=== PATIENT | male | born 1955 | race Caucasian/White ===

== ENCOUNTER 2024-09-17 01:17 | Inpatient (IN) | payer OTHER, SELFPAY ==
[2024-09-16 19:25] VITALS: BP 137/82
[2024-09-16 19:45] LABS: % Basophils 0.3 % (0-2); % Eosinophils 0.5 % (0-6); % Immature Granulocytes 0.3 % (0-0.5); % Lymphocytes 9.8 % (20.5-51.1); % Neutrophils 78.1 % (42.2-75.2); Absolute Eosinophils 0.1 10^3/uL (0-0.7); Absolute Lymphocytes 1.1 10^3/uL (1.2-3.4); Absolute Monocytes 1.2 10^3/uL (0.1-0.6); Absolute Neutrophils 8.7 10^3/uL (1.4-6.5); Hemoglobin 11.8 g/dL (13.0-18.0); Mean Corp Hgb Conc. 34.7 g/dL (33.0-37.0); Mean Corpuscular Hgb 35.2 pg (27.0-31.0); Mean Corpuscular Volume 101.5 fL (80.0-94.0); Mean Platelet Volume 8.9 fL (7.4-10.4); Nucleated Red Blood Cells % 0 % (-); Platelet Count 230 10^3/uL (130-400); Red Blood Cell Count 3.35 10^6/uL (4.70-6.10); Red Cell Dist. Width 11.7 % (11.5-14.5); White Blood Cell Count 11.2 10^3/uL (4.8-10.8)
[2024-09-16 20:30] LABS: Lactic Acid 1.4 mmol/L (0.7-2.0)
[2024-09-16 21:04] LABS: ALT (SGPT) 39 U/L (0-50); AST (SGOT) 36 U/L (17-59); Albumin 3.7 g/dl (3.5-5.0); Alkaline Phosphatase 204 U/L (38-126); Blood Urea Nitrogen 39 mg/dl (9-20); Carbon Dioxide 22 mmol/L (22-30); Chloride 102 mmol/L (98-107); Glucose 113 mg/dl (70-99); Potassium 4.6 mmol/L (3.5-5.1); Sodium 135 mmol/L (135-145); Total Bilirubin 0.9 mg/dl (0.2-1.3); Total Protein 7.7 g/dl (6.3-8.2); eGFR 35.24
[2024-09-16 23:00] VITALS: BMI 17.8
[2024-09-16 23:01] VITALS: BP 136/79
--- NOTE | 2024-09-16 23:29 | ED.MUSCINJ ---
HPI-Injury
General
Chief Complaint: Musculo-Skeletal Complaint
Source: patient and spouse
Exam Limitations: none
Time Seen by Provider: 09/16/24 23:19
Nursing documentation reviewed up to this point in time: agreed with
History of Present Illness-Injury
Initial Injury comments:
69-year-old male here for infection of the left foot. History of high blood pressure and HLD. He states the plantar surface of his left foot at the head of the fifth meta tarsal has a callus on it that has been bothering him for a few months.
Over the past month the area has become more painful. He saw his family doctor and was sent for an outpatient x-ray of the left foot which she had done today revealing suspicion for acute osteomyelitis at the head of the fourth metatarsal and the
base of the proximal phalanx of the fourth toe.
He denies N/V/D/C. Denies fever or chills.
Past History
Past History
ED Past Medical History: HTN and Hypercholesterolemia
ED Past Surgical History: None
Social History
Tobacco: Non-smoker
Alcohol: None
Personal:
Living: with family
Review of Systems
Review of Systems
Allergies reviewed?: Yes
All Other Systems: ROS reviewed and negative except as documented in HPI and ROS
Constitutional: Denies fever or chills
Respiratory: Denies trouble breathing
Cardiac: Denies chest pain
ABD/GI: Denies abdominal pain or nausea
Skin: Reports other (Wound plantar surface of left foot , pain)
Phy Exam
Physical Exam
Physical Exam:
GENERAL: No acute distress. A&Ox3.
CONSTITUTIONAL: Afebrile.
EYES: clear, conjunctivae normal
ENMT: moist mucus membranes, Pharynx nl
RESPIRATORY: Regular respirations, nonlabored, lungs clear.
CARDIOVASCULAR: Regular rate and rhythm, no murmurs, no rubs.
GI: Soft, nontender, normal BS
MUSCULOSKELETAL: Moves with ease. Well perfused.
SKIN: Warm, dry, pink, there is a half dollar sized callus on the plantar surface of the left foot at the heads of the 4th and 5th metatarsals, there is a tunneling opening about 5 mm wide that is draining serous fluid. The area is tender and
mildly swollen with local surrounding redness. Foot mildly swollen.
PSYCH: Normal mood and affect. Well kept, interactive and appropriate
NEUROLOGIC: Awake, alert and oriented. No focal neurological deficits
Injury Course
Orders/Labs/Results
Orders:
Orders
09/16/24 19:37
Complete Blood Count/With Diff Urgent
Comprehensive Metabolic Panel Urgent
Glycohemoglobin (HgbA1c) Urgent
Lactate Level [Lactic Acid] Q4H
Blood Culture Urgent
IRENE Source: Blood/Venous
Specimen Description:
09/16/24 23:28
Piperacillin/Tazo 4.5 Gram [Zosyn] 4.5 gram in 100 ml IV NOW
09/16/24 23:36
Wound Culture [Wound/Abscess/Other Culture] Urgent
IRENE Source: Foot
Specimen Description: Left
Date Specimen was Collected: 09/16/24
Time Specimen was Collected: 23:34
0.9% Sodium Chloride 1000 ml [Nss] 1,000 ml IV BOLUS
09/16/24 23:39
Vancomycin [Vancocin] 1,500 mg 0.9% Sodium Chloride 500 ml [Nss] 500 ml IV NOW
09/17/24 00:14
Admit/Transfer Patient As Directed
Co-Sign Provider:
Level of Care: Inpatient admission
Assign to:: Medical/Surgical
Physician / Group: Seth
Diagnosis: L Foot Osteomyelitis
Reason for Hospitalization: L Foot Osteomyelitis
Expected length of stay greater than two midnights?: Yes
ELOS- Estimated Length of Stay in days: 3
I certify the patient meets the requirements for IP care: Yes
PRN Pain Medication Management As Directed
May give lesser potent ordered pain med per pt: Yes
preference::
Protocol:: Medication orders for pain may be administered in a
manner that supports deferring to patient preference
when the pt is:
- Requesting an ordered lesser potent pain medication.
Least to most potent pain medications are defined
as: acetaminophen < NSAID < tramadol < opioids
(morphine, oxycodone, hydromorphone).
- Requesting a lesser dose of the same medication IF
ORDERED.
- Requesting a less intrusive route of administration
if both routes are prescribed by the provider (PO <
IV).
09/17/24 00:16
Code Status As Directed
Resuscitation Status: Full Code
09/17/24 01:21
Acetaminophen [Tylenol] 650 mg PO Q4HPRN PRN
HYDROmorphone [Dilaudid] 0.5 mg IV Q4HPRN PRN
VANCOMYCIN Pharmacy to Dose [VANCOCIN Pharmacy to Dose] 1 each Pharmacy To Prepare [Call Pharmacy To Prepare] 0 ml IV PER PROTOCOL
09/17/24 01:21
Consult Notification Routine
Specialty to Notify: Infectious Disease
Date consulting provider notified: 09/17/24
Time consulting provider notified: 08:37
Notified:: Provider
Consult Notification Routine
Specialty to Notify: Podiatry
Date consulting provider notified: 09/17/24
Time consulting provider notified: 08:37
Notified:: Provider
Comment: SURGICAL PODIATRY
INFECTIOUS DISEASE CONSULT Routine
Consulting Provider: Jamir Lutz
Was physician already notified: No
Reason for consult: L Foot Osteomyelitis
PODIATRY CONSULT Routine
Consulting Provider: Samantha Gallegos
Was physician already notified: No
Reason for consult: L Foot Osteomyelitis
Activity As Directed
Activity Level: Ambulate
I/O [Intake/ Output] As Directed
Frequency: Per unit guidelines
Vital Signs As Directed
Frequency: Per unit guidelines
Weight As Directed
Frequency: Daily
Oxygen Therapy [O2 Therapy] [RESP] Routine
Titrate/Wean O2 to maintain O2 sat greater than (%): 94
DX Deep Vein Thrombosis Video Routine
09/17/24 05:47
Basic Metabolic Panel IN AM
CRP [C-Reactive Protein] Routine
Complete Blood Count/No Diff IN AM
09/17/24 06:00
Piperacillin/Tazo 2.25 Gram [Zosyn] 2.25 grams in 50 ml IV Q6H
09/17/24 08:00
Amlodipine [Norvasc] 5 mg PO DAILY
Heparin 5,000 units SC Q8
Rosuvastatin Calcium [Crestor] 5 mg PO DAILY
Abnormal Lab Results
09/16/24
19:37
WBC 11.2 H 10^3/uL
(4.8-10.8)
RBC 3.35 L 10^6/uL
(4.70-6.10)
Hgb 11.8 L g/dL
(13.0-18.0)
Hct 34.0 L %
(39.0-52.0)
MCV 101.5 H fL
(80.0-94.0)
MCH 35.2 H pg
(27.0-31.0)
Absolute Neuts (auto) 8.7 H 10^3/uL
(1.4-6.5)
Absolute Lymphs (auto) 1.1 L 10^3/uL
(1.2-3.4)
Absolute Monos (auto) 1.2 H 10^3/uL
(0.1-0.6)
Neutrophils % 78.1 H %
(42.2-75.2)
Lymphocytes % 9.8 L %
(20.5-51.1)
Monocytes % 11.0 H %
(1.7-9.3)
BUN 39 H mg/dl
(9-20)
Creatinine 2.0 H mg/dL
(0.7-1.3)
Glucose 113 H mg/dl
(70-99)
Hemoglobin A1c 6.2 H %
(4.0-5.6)
Alkaline Phosphatase 204 H U/L
(38-126)
09/16/24 19:37
09/16/24 19:37
MDM/Problems Addressed
Differential Diagnosis Includes:
Cellulitis, osteomyelitis
MDM/Problems Addressed:
69-year-old male here for infection of the left foot. History of high blood pressure and HLD. He states the plantar surface of his left foot at the head of the fifth meta tarsal has a callus on it that has been bothering him for a few months.
Over the past month the area has become more painful. He saw his family doctor and was sent for an outpatient x-ray of the left foot which she had done today revealing suspicion for acute osteomyelitis at the head of the fourth metatarsal and the
base of the proximal phalanx of the fourth toe.
He denies N/V/D/C. Denies fever or chills.
CBC no clinically significant abnormality
CMP: Showing mild renal insufficiency all
Hospitalist notified of admission. Osteomyelitis left foot
Wound culture pending
*Critical Care Note
Total Time (30-74mins, 75-104mins- exclusive of procedures): Not Applicable
ED Attending Note
-
Portions of this chart may have been created with voice recognition software.� Occasional wrong word or��sound alike� substitutions may have occurred due to the inherent limitations of voice recognition software.
Discharge Plan
Departure
Patient Disposition: Admit
Date of Disposition: 09/16/24
Time of Disposition: 23:35
Admit to: Med/Surg
Presentation/result/management discussed w/ accepting MD/DO: Hospitalist
Condition: Fair
Discharge Problem:
Acute osteomyelitis of left foot, Acute renal insufficiency
Interventions
Interventions:
*Risk Screen - Suicide Last Done: 09/16/24 22:58
*General Assessment Last Done: 09/16/24 22:58
*Neglect/Abuse Screening Last Done: 09/16/24 22:58
*ED- Fall Risk Assessment Last Done: 09/16/24 22:58
*ED COVID-19 Vaccine History Last Done: 09/16/24 22:58
*Nursing Disposition Last Done: 09/17/24 09:04
ED-Musculoskeletal Assessment Last Done: 09/16/24 23:03
Discharge Date and Time
Discharge Date/Time: 09/17/24 09:04
[2024-09-16] MEDS: NSS 1000 IV (23:42)
[2024-09-16] MEDS: ZOSYN 100 IV (23:43)
[2024-09-17] MEDS: VANCOCIN 530 MG IV (00:15)
--- NOTE | 2024-09-17 00:19 | HPS.HSE ---
Family Physician
-
Family Physician: Dwight Huizar
Chief Complaint
-
L Foot Wound
History of Present Illness
Patient is a 69y M with PMH significant for hypertension and CKD who presents to ED complaining of L foot wound. Patient states that he initially noted sore spot on the plantar aspect of the L foot about one month ago. This has gradually
worsened since that time. He denies any initial injury, trauma, etc. No systemic complaints such as fevers / chills, N/V, etc. Patient was seen by his PCP and had x-rays prescribed. He was called by his PCP today with results of those images and
advised to present to the ED for evaluation.
Medical History
Past Medical History
Past Medical History: Reports Other
Additional Past Medical History:
Hypertension
Dyslipidemia
CKD III
Past Surgical History: Reports None
Social History
Tobacco: Non-smoker
Alcohol: Daily (1-2 drinks daily.)
Drug: None
Personal:
Living: With Family
Family History
Family History: Other (Father: Skin cancer Sister: Pulmonary Fibrosis)
Allergies / Home Medications
Allergies reflects when Allergies were last updated in [facility].
Home Medications with original date entered in [facility]
Allergy/Medication List:
Allergies
Allergy/AdvReac Type Severity Reaction Status Date / Time
No Known Allergies Allergy Verified 09/16/24 22:58
Home Medications
amlodipine 5 mg tablet 5 mg PO DAILY 09/16/24
rosuvastatin 5 mg tablet 5 mg PO DAILY 09/16/24
Review of Systems
-
History Source: Patient
A 12 point ROS was completed and negative except as noted: Yes
Constitutional: Denies Fever, Fatigue or Chills
Respiratory: Denies Cough or Trouble Breathing
Cardiac: Denies Chest Pain or Palpitations
Abdomen/GI: Denies Abdominal Pain, Nausea, Vomiting or Diarrhea
: Denies Dysuria or Frequency
Musculoskeletal: Reports Joint Pain, Joint Swelling and Edema
Skin: Reports Other (Wound L foot)
Neurological: Denies Dizzy or Headache
Psych: Denies Depression or Anxiety
Physical Exam
Vital Signs
Vital Signs
Temp Pulse Resp BP Pulse Ox
99.4 F 87 18 136/79 98
09/16/24 23:01 09/16/24 23:01 09/16/24 23:01 09/16/24 23:01 09/16/24 23:01
Physical Exam
General: Other (69y M in no acute distress.)
HEENT: Moist mucous membranes
Respiratory: Clear; No Wheezes, Rales or Rhonchi
Cardiac: S1/S2 and Regular Rhythm; No Murmur
GI: Soft, Non Tender, Non Distended and Normal Bowel Sounds
Musculoskeletal: No Clubbing, No Cyanosis and Other (Trace edema of the L foot. Erythema of the 4th digit extending into the dorsum of the foot. Wound plantar surface / head of 4th MT with slight serosanguinous drainage. Surrounding tenderness.)
Neuro: AO x 3
Laboratory Results
-
09/16/24 19:37
09/16/24 19:37
Laboratory Results
Lactic Acid 1.4 mmol/L (0.7-2.0) 09/16/24 19:37
Lactic Acid Cancelled 09/16/24 19:37
Total Bilirubin 0.9 mg/dl (0.2-1.3) 09/16/24 19:37
AST 36 U/L (17-59) 09/16/24 19:37
ALT 39 U/L (0-50) 09/16/24 19:37
Alkaline Phosphatase 204 U/L (38-126) H 09/16/24 19:37
Impression/Plan
-
A/P: Patient is a 69y M with PMH significant for hypertension and CKD who presents to ED for evaluation of L foot wound.
L Foot Osteomyelitis
Left Foot Cellulitis
- Admit for further evaluation and treatment.
- X-rays done today as an outpatient demonstrate bony destruction at head of 4th metatarsal and proximal aspect of 4th proximal phalanx.
- Continue broad spectrum IV abx for now.
- ID / Podiatry evaluations for additional recommendations.
- Follow fever curve. Follow for clinical improvement.
- Local wound care.
Benign Hypertension
- Stable. Continue amlodipine.
CKD III
- Suspect this is stable - though no baseline values for comparison.
- Follow SCr over the next 24-48 hours for any changes.
- Renally dose abx.
DVT Prophylaxis: Subcut Heparin
Code Status: Full
[2024-09-17 00:22] VITALS: BP 122/52
--- NOTE | 2024-09-17 03:27 | DOWNTIME ---
There was a [employer] Client Prescription Clerk Downtime on 09/17/2024 from 0200 to 09/18/2023 at 0318 . Downtime documentation of patient's care, including medication administrations, has been reconciled in the electronic record per guidelines. Refer to the
patient's paper chart under the miscellaneous tab to see printed paper medication records and downtime forms.
--- NOTE | 2024-09-17 03:31 | DOWNTIME ---
There was a [employer] Client [employer] Manager Downtime on 09/17/2024 from 0200 to 09/18/2023 at 0318 . Downtime documentation of patient's care, including medication administrations, has been reconciled in the electronic record per guidelines. Refer to the
patient's paper chart under the miscellaneous tab to see printed paper medication records and downtime forms.
[2024-09-17 06:11] LABS: Hematocrit 30.5 % (39.0-52.0); Hemoglobin 10.6 g/dL (13.0-18.0); Mean Corp Hgb Conc. 34.8 g/dL (33.0-37.0); Mean Corpuscular Volume 100.7 fL (80.0-94.0); Mean Platelet Volume 9.6 fL (7.4-10.4); Platelet Count 216 10^3/uL (130-400); Red Blood Cell Count 3.03 10^6/uL (4.70-6.10); Red Cell Dist. Width 11.4 % (11.5-14.5); White Blood Cell Count 8.1 10^3/uL (4.8-10.8)
[2024-09-17] MEDS: ZOSYN 50 IV ×4 (06:31→23:16)
[2024-09-17 06:37] LABS: Blood Urea Nitrogen 33 mg/dl (9-20); Calcium 8.4 mg/dl (8.4-10.2); Carbon Dioxide 20 mmol/L (22-30); Chloride 109 mmol/L (98-107); Estimated Creatinine Clearance 34 ml/min; Glucose 97 mg/dl (70-99); Potassium 4.4 mmol/L (3.5-5.1); Sodium 137 mmol/L (135-145); eGFR 39.99
[2024-09-17 07:28] VITALS: BP 125/53
--- NOTE | 2024-09-17 08:27 | W.PN.HOSP.TC ---
Today's Communication/Plan
-
Antibiotics. ID and podiatry consult.
Assessment / Plan
Assessment / Plan
Physical Exam
General: Other (69y M in no acute distress.)
HEENT: Moist mucous membranes
Respiratory: Clear; No Wheezes, Rales or Rhonchi
Cardiac: S1/S2 and Regular Rhythm; No Murmur
GI: Soft, Non Tender, Non Distended and Normal Bowel Sounds
Musculoskeletal: No Clubbing, No Cyanosis and Other (Trace edema of the L foot. Erythema of the 4th digit extending into the dorsum of the foot. Wound plantar surface / head of 4th MT with slight serosanguinous drainage. Surrounding tenderness.)
Neuro: AO x 3
A/P:
A/P: Patient is a 69y M with PMH significant for hypertension and CKD who presents to ED for evaluation of L foot wound.
L Foot Osteomyelitis
Left Foot Cellulitis
- Admit for further evaluation and treatment.
- X-rays done today as an outpatient demonstrate bony destruction at head of 4th metatarsal and proximal aspect of 4th proximal phalanx.
- Continue broad spectrum IV abx for now.
- ID / Podiatry evaluations for additional recommendations.
- Follow fever curve. Follow for clinical improvement.
- Local wound care.
-Discussed with at bedside today
- WBC 11.2--> 8.1
Benign Hypertension
- Stable. Continue amlodipine.
CKD III
- Suspect this is stable - though no baseline values for comparison.
- Follow SCr over the next 24-48 hours for any changes.
- Renally dose abx.
- Creatinine 2--> 1.8 today
DVT Prophylaxis: Subcut Heparin
Code Status: Full
Anticipated Discharge: > 48 hours
Subjective/Interval History
-
Date of Service: September 17, 2024
Patient with some foot discomfort. No nausea vomiting or diarrhea. Afebrile
Objective Data
-
Labs:
Laboratory Results
09/16/24 09/17/24
19:37 05:47
WBC 8.1
Hgb 10.6 L
Hct 30.5 L
Plt Count 216
Sodium 135 137
Potassium 4.6 4.4
Chloride 102 109 H
Carbon Dioxide 22 20 L
BUN 39 H 33 H
Creatinine 2.0 H 1.8 H
Glucose 113 H 97
Calcium 9.0 8.4
Total Bilirubin 0.9
AST 36
ALT 39
Alkaline Phosphatase 204 H
Vital Signs:
Vital Signs
Temp Pulse Resp BP Pulse Ox
98.4 F 69 17 125/53 98
09/17/24 07:28 09/17/24 07:28 09/17/24 07:28 09/17/24 07:28 09/17/24 07:28
I&O
09/16/24 09/17/24 09/18/24
06:59 06:59 06:59
Intake Total 700 / 700
Output Total 300 / 300
Balance 400 / 400
[2024-09-17] MEDS: CRESTOR 5 MG PO (08:46)
[2024-09-17] MEDS: NORVASC 5 MG PO (08:46)
[2024-09-17] MEDS: HEPARIN 5000 UNITS SC ×3 (08:47→23:16)
--- NOTE | 2024-09-17 09:17 | PHA.VAN.IN ---
Assessment
- Assessment
Renal Function: Appears elevated from baseline (1.8)
Concomitant Antimicrobials: Piperacillin/Tazobactam
Plan
- Plan
Initial / Loading Dose: Vanco 1500mg loading dose administered 09/16/24 0015
Maintenance Regimen: Dose by level
Monitoring: R level 09/18/24 0600
Pharmacokinetics Vancomycin I
- -
Patient Age: 69
Patient Sex: Male
Vancomycin Day #: 1
Indication: Bone And Joint
Requesting Provider: Seth
Pertinent Antimicrobial Allergies:
No known drug allergies
Height / Weight:
Height 6 ft 2 in
Actual Weight 63 kg
- Vital Signs / Lab Results
Temp Pulse Resp BP Pulse Ox
98.4 F 81 17 145/62 98
09/17/24 07:28 09/17/24 08:46 09/17/24 07:28 09/17/24 08:46 09/17/24 07:28
Lab Results - Hematology
09/16/24 09/17/24
19:37 05:47
WBC 11.2 H 8.1
Lab Results - Chemistry
09/16/24 09/17/24
19:37 05:47
BUN 39 H 33 H
Creatinine 2.0 H 1.8 H
Estimated Creat Clear 34
Albumin 3.7
09/16/24 09/16/24
19:37 19:37
Lactic Acid 1.4 Cancelled
[2024-09-17 10:21] LABS: Glycohemoglobin (HgbA1c) 6.2 % (4.0-5.6)
--- NOTE | 2024-09-17 10:58 | CM ---
CM following re: discharge planning.
Reviewed pt's chart, met wit pt and pt's spouse at bedside.
Pt is a 69 year old male, admitted with primary dx of L Foot Osteomyelitis. Left Foot Cellulitis.
Pt reports he lives with spouse 2SH, 3 steps to enter, has 3 supportive children. Pt described himself as independent in all areas [employer]. No DME, VN or SNF history.
PCP: Dwight Huizar
Pharmacy: [facility]
D/C plan: home with anticipated no needs. Spouse to transport at discharge.
CM will follow with discharge plan updates as hospitalization progresses
--- NOTE | 2024-09-17 11:26 | CON.ID ---
Consultation
-
Date/Time Consultation Requested: September 17, 2024 0121
Date/Time Consultation Performed: 07/20/2024 1126
Requesting Provider: Dr. Seth Leigh
Performing Provider: Dr. Maricel Lancaster
Reason for Consultation: Left foot osteomyelitis
Chief Complaint / Past History
Chief Complaint
Foot wound
History of Present Illness
69-year-old male with history of hypertension, CKD 3, who presented to the hospital on September 16 due to left foot redness and worsening plantar wound. He states he has a chronic callus on the bottom of his left foot. About a month ago, he noted a
wound on the callus which never healed. Few days ago his left foot became more swollen and red. The foot wound started to drain. He saw his PCP who ordered x-ray of the foot which showed changes suspicious for osteomyelitis. He was therefore
sent to the ER. No fever. He is currently on vancomycin and Zosyn. No history of diabetes mellitus. No trauma to the foot. No walking a lot. No neuropathy.
Past History
Additional Past Medical History:
Hypertension
CKD 3
HLD
Allergy History:
No Known Allergies Allergy (Verified 09/16/24 22:58)
Medications Reviewed: Yes
Current Antibiotics:
Zosyn
Vancomycin
Social History
Tobacco: Non-Smoker
Alcohol: Daily (1-2 drinks a day)
Drug: None
Personal:
Living: With Family
Employment: Employed ([employer]
Family History
Family History: Not Pertinent
Review of Systems
Review of Systems
General: Negative Fever, Chills or Change in Appetite
HEENT: Negative Stiff Neck, Sinus Problems or Headache
Cardiovascular: Negative Chest Pain or Dyspnea
Respiratory: Negative Dyspnea or Cough
Gasteroenterology: Negative Nausea, Vomiting or Diarrhea
Genital / Urological: Negative Dysuria or Flank Pain
Skin / Hair / Nails: Negative Rash
Neurological: Negative Dizziness
All systems: All other systems were reviewed and were negative
Vital Signs
Temp Pulse Resp BP Pulse Ox
98.4 F 81 17 145/62 98
09/17/24 07:28 09/17/24 08:46 09/17/24 07:28 09/17/24 08:46 09/17/24 07:28
Physical Exam
Physical Exam
Constitutional: No Acute Distress and Other (thin)
Eyes: No Conjunctival Hemorrhage and Sclera Anicteric
Cardiovascular: Regular Rate and S1/S2
Pulmonary: Clear
Gastrointestinal: Soft, Non Tender and Non Distended
Extremities: Edema (left foot 1+), Erythema (Dorsolateral left foot, + warmth) and Pulses (strong pedal pulses)
Wound: Other (left plantar foot over 4th metatarsal small opening/wound with light brown discharge on gauze)
Neurological: AO x 3
Lab / Diagnostic Study Results
09/17/24 05:47
09/17/24 05:47
Abs Immat Gran (auto) 0.0 10^3/uL (0-0.05) 09/16/24 19:37
Absolute Neuts (auto) 8.7 10^3/uL (1.4-6.5) H 09/16/24 19:37
Absolute Lymphs (auto) 1.1 10^3/uL (1.2-3.4) L 09/16/24 19:37
Absolute Monos (auto) 1.2 10^3/uL (0.1-0.6) H 09/16/24 19:37
Absolute Basos (auto) 0.0 10^3/uL (0-0.2) 09/16/24 19:37
Immature Gran % 0.3 % (0-0.5) 09/16/24 19:37
Neutrophils % 78.1 % (42.2-75.2) H 09/16/24 19:37
Lymphocytes % 9.8 % (20.5-51.1) L 09/16/24 19:37
Monocytes % 11.0 % (1.7-9.3) H 09/16/24 19:37
Eosinophils % 0.5 % (0-6) 09/16/24 19:37
Basophils % 0.3 % (0-2) 09/16/24 19:37
Lactic Acid 1.4 mmol/L (0.7-2.0) 09/16/24 19:37
Lactic Acid Cancelled 09/16/24 19:37
C-Reactive Protein 74.10 mg/L (0.0-10.00) H 09/17/24 05:47
Microbiology Results
Micro:
09/16/24 23:36 Wound Culture - Pending
Foot - Left Gram Stain - Preliminary
09/16/24 19:37 Blood Culture - Pending
Blood/Venous
09/16/24 Left foot and ankle xray: suspicious for acute osteomyelitis at the head of the fourth metatarsal and the base of the proximal phalanx of the fourth toe.
Assessment / Plan
# Osteomyelitis of left 4th metatarsal head
# Left foot cellulitis
- Podiatry to evaluate.
- DC Vancomycin.
- Continue Zosyn for now.
[2024-09-17 15:15] VITALS: BP 120/58
--- NOTE | 2024-09-17 19:53 | W.CS.POD ---
Consult Summary - Podiatry
-
69 year old male with PMH of HTN and CKD3, admitted last night for left foot infected ulceration/cellulitis. He reports having a persistent 'callus' along the bottom of his right foot for at least 2 months duration. He admits to picking at it and
rarely covering or caring for it over time. After a recent vacation in [place], he noticed increased swelling and redness of the left foot, as well as some drainage, prompting him to visit his PCP. XRAYS were ordered and his PCP (Dr. Huizar) sent
the patient to the ER for evaluation for possible bone infection. The patient denies having any significant pain, fevers, chills or sweats, nor stiffness behind the knee or in the groin. Further inquiry reveals he is aware of undiagnosed neuropathy
of both feet, but never made his PCP aware of this.
Patient is resting comfortably in bed.
Afebrile, VSS
WBC 8.1 with left shift.
09/16/24 blood culture and wound culture: Pending.
09/16/24 XRAYS, Left foot: Left foot radiographs show destructive osteolytic process at the head of the fourth metatarsal. There is also abnormal osteolysis which is less conspicuous at the base of the proximal phalanx of the fourth toe. No other
abnormal osteolysis identified. Findings as above suspicious for acute osteomyelitis at the head of the fourth metatarsal and the base of the proximal phalanx of the fourth toe.
Clinically, the patient pedal pulses are 2+ palpable bilaterally. Normal skin temp, decreased turgor and digital hair.
There is mild edema of the left foot, erythema extending into the fourth toe. Right foot, 1cm diameter ulceration with bordering hyperkeratosis, sub-metatarsal four, full skin and soft tissue thickness, extending to bone. Minor brownish discharge
and malodor noted, as well as mild bleeding on probing area.
Assessment:
-Infected, neurotrophic ulceration of the plantar left foot, with strong suspicion for osteomyelitis.
-Idiopathic peripheral neuropathy.
-HTN
-CK3
Plan:
-XRAY non-specific bony changes in the fourth metatarsal head and base of the fourth toe, left foot.
-MRI ordered to determine extent of infectious bone involvement. Anticipate need for surgical debridement.
-ID note appreciated. Patient on IV Zosyn (D/C Vanco)
-Will follow.
[2024-09-17 23:31] VITALS: BP 101/53
[2024-09-18] VITALS (14 sets, daily range): BP systolic 90–128; BP diastolic 43–64; BMI 17.1
[2024-09-18] MEDS: ZOSYN 50 IV ×3 (05:20→19:38)
[2024-09-18] MEDS: NORVASC 5 MG PO (07:32)
[2024-09-18] MEDS: HEPARIN 5000 UNITS SC ×2 (07:32→23:25)
[2024-09-18] MEDS: CRESTOR 5 MG PO (07:32)
--- NOTE | 2024-09-18 08:31 | W.PN.HOSP.TC ---
Addendum entered and electronically signed by Emmanuel Kelsey MD 09/18/24 14:04:
Underweight
Original Note:
Today's Communication/Plan
-
Antibiotics. MRI of the foot
Assessment / Plan
Assessment / Plan
Physical Exam
General: Other (69y M in no acute distress.)
HEENT: Moist mucous membranes
Respiratory: Clear; No Wheezes, Rales or Rhonchi
Cardiac: S1/S2 and Regular Rhythm; No Murmur
GI: Soft, Non Tender, Non Distended and Normal Bowel Sounds
Musculoskeletal: No Clubbing, No Cyanosis and Other (Trace edema of the L foot. Erythema of the 4th digit extending into the dorsum of the foot. Wound plantar surface / head of 4th MT with slight serosanguinous drainage. Surrounding tenderness.)
Neuro: AO x 3
A/P:
A/P: Patient is a 69y M with PMH significant for hypertension and CKD who presents to ED for evaluation of L foot wound.
L fourth metatarsal head osteomyelitis
Left Foot Cellulitis
- X-rays done as an outpatient demonstrate bony destruction at head of 4th metatarsal and proximal aspect of 4th proximal phalanx.
- Continue broad spectrum IV abx for now. Streamlined to Zosyn
- ID / Podiatry consults appreciated
- Local wound care.
-Discussed with at bedside yesterday
- WBC 11.2--> 7.3
- Plan for MRI today and possible surgical intervention
Benign Hypertension
- Stable. Continue amlodipine.
CKD III
- Suspect this is stable - though no baseline values for comparison.
- Follow SCr over the next 24-48 hours for any changes.
- Renally dose abx.
- Creatinine 2--> 1.9 today
DVT Prophylaxis: Subcut Heparin
Code Status: Full
Total time spent on today's encounter was 52 minutes which included time spent in counseling the patient/family regarding diagnosis and treatment plan as listed above, goals of care, and symptom management. Case was discussed with nursing staff,
specialists, and care coordinators/case management. All labs and imaging personally reviewed by me. Remainder the time spent in detailed review of previous records, lab data, imaging, and other medical provider documentation.
Anticipated Discharge: > 48 hours
Subjective/Interval History
-
Date of Service: September 18, 2024
patient with some foot discomfort, no n/v. Afebrile
Objective Data
-
Labs:
Laboratory Results
09/18/24
08:11
WBC Pending
Hgb Pending
Hct Pending
Plt Count Pending
Sodium Pending
Potassium Pending
Chloride Pending
Carbon Dioxide Pending
BUN Pending
Creatinine Pending
Glucose Pending
Calcium Pending
Vital Signs:
Vital Signs
Temp Pulse Resp BP Pulse Ox
98.2 F 85 17 128/63 99
09/18/24 07:32 09/18/24 07:32 09/18/24 07:32 09/18/24 07:32 09/18/24 07:32
I&O
09/17/24 09/18/24 09/19/24
06:59 06:59 06:59
Intake Total 700 / 700 820 / 820
Output Total 300 / 300
Balance 400 / 400 820 / 820
[2024-09-18 09:16] LABS: % Basophils 0.3 % (0-2); % Eosinophils 2.2 % (0-6); % Immature Granulocytes 0.4 % (0-0.5); % Lymphocytes 11.1 % (20.5-51.1); % Monocytes 11.5 % (1.7-9.3); % Neutrophils 74.5 % (42.2-75.2); Absolute Eosinophils 0.2 10^3/uL (0-0.7); Absolute Lymphocytes 0.8 10^3/uL (1.2-3.4); Absolute Monocytes 0.8 10^3/uL (0.1-0.6); Absolute Neutrophils 5.5 10^3/uL (1.4-6.5); Hematocrit 32.5 % (39.0-52.0); Hemoglobin 11.5 g/dL (13.0-18.0); Mean Corp Hgb Conc. 35.4 g/dL (33.0-37.0); Mean Corpuscular Hgb 36.1 pg (27.0-31.0); Mean Corpuscular Volume 101.9 fL (80.0-94.0); Nucleated Red Blood Cells % 0 % (-); Platelet Count 231 10^3/uL (130-400); Red Blood Cell Count 3.19 10^6/uL (4.70-6.10); Red Cell Dist. Width 11.5 % (11.5-14.5); White Blood Cell Count 7.3 10^3/uL (4.8-10.8)
--- NOTE | 2024-09-18 09:40 | PN.CDI ---
CDI
- -
CDI:
Physician Documentation Request
Admit Date: 09/17/24 01:17
Dear Doctor Laure,
Please review the following and provide your response in the progress notes.
Clinical Indicators:
Selected Entries
09/18/24
05:13
Body Mass Index (BMI) 17.1
Please provide an associated diagnosis related to the BMI, such as:
BMI 17.1, underweight
Other (please specify)
BMI < or = to 19
Underweight
Weight Loss
Cachectic
Anorexia
Use of terms such as suspected, likely, concern for, or probable (associated with a specific diagnosis that is being evaluated, monitored, or treated as if it exists) are acceptable and can be coded in the inpatient setting, when documented at the
time of discharge.
Thank you,
Lauren Dee RN BSN CCDS
CDI Specialist
Please contact via tiger text
Please use your independent medical judgment in providing your response.
[2024-09-18 09:42] LABS: Blood Urea Nitrogen 36 mg/dl (9-20); Calcium 8.7 mg/dl (8.4-10.2); Carbon Dioxide 23 mmol/L (22-30); Chloride 106 mmol/L (98-107); Estimated Creatinine Clearance 31 ml/min; Glucose 105 mg/dl (70-99); Potassium 5.1 mmol/L (3.5-5.1); Sodium 138 mmol/L (135-145); eGFR 37.48
--- NOTE | 2024-09-18 10:01 | CM ---
CM following re: discharge planning.
Reviewed pt's chart, met wit pt.
Pt is aware of the treatment plan, stated he met with [facility] [employer], receives antibiotics. Per podiatry, anticipate need for surgical debridement.
Pt reports he lives with spouse 2SH, 3 steps to enter, has 3 supportive children. 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 No DME, VN or SNF history.
PCP: Dwight Huizar
Pharmacy: [facility]
D/C plan: home with possibly VN services if indicated. Spouse to transport at discharge.
CM will follow with discharge plan updates as hospitalization progresses
--- NOTE | 2024-09-18 12:01 | W.PN.ID1 ---
Date of Service
Date of Service: September 18, 2024
Today's Communication
Await MRI.
Assessment / Plan
# Osteomyelitis of left 4th metatarsal head
# Left foot cellulitis
- Appreciate podiatry eval.
- Enroute to MRi
- Continue Zosyn (d2) for now.
Chief Complaint
-: Other (Osteo)
Subjective / Review of Systems
Tolerating abx.
Vital Signs / Physical Exam
Vital Signs
Vital Signs
Temp Pulse Resp BP Pulse Ox
98.2 F 85 17 128/63 99
09/18/24 07:32 09/18/24 07:32 09/18/24 07:32 09/18/24 07:32 09/18/24 07:32
Physical Exam
Constitutional: No Acute Distress and Comfortable
Cardiovascular: Regular Rate and S1/S2
Pulmonary: Clear
Extremities: Edema (Left foot 1= edema) and Erythema (Left 4th toe edematous/erythematous to forefoot)
Wound: Other (Left foot dressing dry)
Neurological: AO x 3
Objective Data
Lab Data
Lab Results
09/18/24 08:11
09/18/24 08:11
Estimated Creat Clear 31 ml/min 09/18/24 08:11
Lactic Acid 1.4 mmol/L (0.7-2.0) 09/16/24 19:37
Lactic Acid Cancelled 09/16/24 19:37
Total Bilirubin 0.9 mg/dl (0.2-1.3) 09/16/24 19:37
AST 36 U/L (17-59) 09/16/24 19:37
ALT 39 U/L (0-50) 09/16/24 19:37
Alkaline Phosphatase 204 U/L (38-126) H 09/16/24 19:37
C-Reactive Protein 74.10 mg/L (0.0-10.00) H 09/17/24 05:47
Most recent labs reviewed.
Micro Results:
09/16/24 19:37 Blood Culture - Preliminary
Blood/Venous No Growth in 24 hours- Final report to follow
09/16/24 23:36 Wound Culture - Pending
Foot - Left Gram Stain - Preliminary
09/16/24 Left foot and ankle xray: suspicious for acute osteomyelitis at the head of the fourth metatarsal and the base of the proximal phalanx of the fourth toe.
--- NOTE | 2024-09-18 15:25 | W.PN.UPDATE ---
Update Note
Progress Note Update
09/18/24 MRI of the left foot reported: There is findings of soft tissue infection along the lateral aspect of the forefoot with a soft tissue defect/necrotic tissue which extends to the fourth metatarsal head. There is associated osteomyelitis
involving the majority of the fourth metatarsal and fourth proximal phalanx. There is an associated peripherally enhancing joint effusion of the fourth metatarsophalangeal joint, likely an element of septic arthritis. Additionally there are findings
of osteomyelitis along the medial aspect of the fifth metatarsal head.
MRI findings reviewed and discussed with the patient. The patient understands the necessity to debride/remove all infected and non-viable skin, soft tissue and bone of the left foot.
Will proceed to OR today.
--- NOTE | 2024-09-18 15:38 | PTCARENOTE ---
PT in OR. All belongings and personal items sent with spouse who accompanied pt with transport staff in case pt does not make it back to [facility].
[2024-09-18] MEDS: HEPARIN SC (15:54)
--- NOTE | 2024-09-18 17:45 | W.PN.UPDATE ---
Update Note
Progress Note Update
-Discussed the planned procedure of debridement of infected and non-viable skin, soft tissue and bone for the treatment of osteomyelitis, left foot. The patient understands the risks, benefits and possible complications of the proposed procedure(s),
as well as the potential need for further surgery. Patient consent for the aforementioned surgery obtained at bedside.
-Partial fourth ray amputation, and partial fifth metatarsal head resection, left foot. Specimen for infected bone sent to pathology and micro. Clean bone margin sent for pathology as well. Minimal to no blood loss.
-Patient tolerated the procedure and anesthesia well. Post op condition stable and VSI to the LLE. Prognosis: Fair to good.
Resume diet
Post Op XRAYS ordered, left foot.
NWB left foot for 24 hours.
--- NOTE | 2024-09-18 19:08 | PTCARENOTE ---
Pt arrived from PACU at aprox 1840. Vitals stable. Left foot surgical wound with bulky dressing CDI- is able to wiggle toes. Pt with no c/o pain at the time. Currently eating dinner. Report passed on to overnight stocker RN.
[2024-09-18] MEDS: DILAUDID 0.5 MG IV (21:43)
[2024-09-18] MEDS: ROXICODONE 5 MG PO (23:48)
[2024-09-19] MEDS: ZOSYN 50 IV ×5 (02:08→23:52)
[2024-09-19 03:10] VITALS: BP 127/45
[2024-09-19] MEDS: ROXICODONE 10 MG PO (03:27)
[2024-09-19 06:00] VITALS: BMI 17.4
[2024-09-19 06:21] LABS: % Basophils 0.3 % (0-2); % Eosinophils 1.2 % (0-6); % Immature Granulocytes 0.5 % (0-0.5); % Lymphocytes 6.6 % (20.5-51.1); % Monocytes 9.4 % (1.7-9.3); Absolute Eosinophils 0.1 10^3/uL (0-0.7); Absolute Immature Granulocytes 0.1 10^3/uL (0-0.05); Absolute Lymphocytes 0.7 10^3/uL (1.2-3.4); Absolute Neutrophils 8.5 10^3/uL (1.4-6.5); Hematocrit 32.3 % (39.0-52.0); Hemoglobin 11.2 g/dL (13.0-18.0); Mean Corp Hgb Conc. 34.7 g/dL (33.0-37.0); Mean Corpuscular Volume 100.9 fL (80.0-94.0); Mean Platelet Volume 9.5 fL (7.4-10.4); Nucleated Red Blood Cells % 0 % (-); Platelet Count 230 10^3/uL (130-400); Red Cell Dist. Width 11.4 % (11.5-14.5); White Blood Cell Count 10.3 10^3/uL (4.8-10.8)
[2024-09-19 06:30] LABS: Blood Urea Nitrogen 32 mg/dl (9-20); Calcium 8.2 mg/dl (8.4-10.2); Carbon Dioxide 22 mmol/L (22-30); Chloride 102 mmol/L (98-107); Estimated Creatinine Clearance 35 ml/min; Glucose 143 mg/dl (70-99); Potassium 4.7 mmol/L (3.5-5.1); Sodium 135 mmol/L (135-145); eGFR 42.83
[2024-09-19 07:00] VITALS: BP 130/63
[2024-09-19] MEDS: CRESTOR 5 MG PO (07:20)
[2024-09-19] MEDS: HEPARIN 5000 UNITS SC ×3 (07:20→23:52)
[2024-09-19] MEDS: NORVASC 5 MG PO (07:22)
--- NOTE | 2024-09-19 09:01 | W.PN.HOSP.TC ---
Today's Communication/Plan
-
IV antibiotics. PT eval
Assessment / Plan
Assessment / Plan
Physical exam:
General: Well Developed, Well Nourished and No Apparent Distress
HEENT: Normocephalic, Atraumatic and Moist Mucous Membranes
Respiratory: Clear to Auscultation; Negative Wheezes, Rales or Rhonchi
Cardiac: Regular Rhythm and S1/S2
GI: Soft, Nontender and Nondistended
Musculoskeletal: Left foot postop findings. No Clubbing, No Cyanosis and No Edema
Neuro: Awake, Alert and Oriented, no neurological deficit
Psych: Calm
Podiatry procedure:
Partial fourth ray amputation, and partial fifth metatarsal head resection, left foot. Specimen for infected bone sent to pathology and micro. Clean bone margin sent for pathology as well. Minimal to no blood loss.
A/P:
L fourth metatarsal head osteomyelitis
Left Foot Cellulitis
- Continue current antibiotics, IV Zosyn
- Awaiting for cultures/path
- MRI reviewed
- Podiatry did amputation on 09/18
- Appreciated ID consult
- PT eval
- Discussed with family at bedside
Benign Hypertension
- Stable. Continue amlodipine.
CKD III
- Avoid nephrotoxic
- Creatinine 1.7 today (creatinine 2 upon admission)
DVT Prophylaxis: Subcut Heparin
Code Status: Full
Total time spent on today's encounter was 52 minutes which included time spent in counseling the patient/family regarding diagnosis and treatment plan as listed above, goals of care, and symptom management. Case was discussed with nursing staff,
specialists, and care coordinators/case management. All labs and imaging personally reviewed by me. Remainder the time spent in detailed review of previous records, lab data, imaging, and other medical provider documentation.
Anticipated Discharge: 24 - 48 hours
Subjective/Interval History
-
Date of Service: September 19, 2024
Postop foot discomfort. No nausea vomiting diarrhea. Afebrile
Objective Data
-
Labs:
Laboratory Results
09/19/24
05:18
WBC 10.3
Hgb 11.2 L
Hct 32.3 L
Plt Count 230
Sodium 135
Potassium 4.7
Chloride 102
Carbon Dioxide 22
BUN 32 H
Creatinine 1.7 H
Glucose 143 H
Calcium 8.2 L
Vital Signs:
Vital Signs
Temp Pulse Resp BP Pulse Ox
98.6 F 104 14 130/63 97
09/19/24 07:00 09/19/24 07:22 09/19/24 07:00 09/19/24 07:22 09/19/24 07:00
I&O
09/18/24 09/19/24 09/20/24
06:59 06:59 06:59
Intake Total 820 / 820 390 / 390
Output Total 800 / 800
Balance 820 / 820 -410 / -410
[2024-09-19 11:05] VITALS: BP 108/63
--- NOTE | 2024-09-19 11:51 | W.PN.ID1 ---
Date of Service
Date of Service: September 19, 2024
Today's Communication
Continue Zosyn for now.
Assessment / Plan
# Osteomyelitis of left 4th toe,metatarsal head and medial 5th met head
# Left foot cellulitis
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
- OR bone cx, path pending
- Wound swab Pseudomonas, Staph aureus, Group B strep
- Continue Zosyn (d4) for now.
- May need course of IV abx if not surgical cure.
Chief Complaint
-: Other (Osteo)
Subjective / Review of Systems
No pain
Vital Signs / Physical Exam
Vital Signs
Vital Signs
Temp Pulse Resp BP Pulse Ox
98.3 F 99 16 108/63 98
09/19/24 11:05 09/19/24 11:05 09/19/24 11:05 09/19/24 11:05 09/19/24 11:05
Physical Exam
Constitutional: No Acute Distress
Cardiovascular: Regular Rate and S1/S2
Pulmonary: Clear
Extremities: Edema (Left foot 1= edema) and Erythema (Left 4th toe edematous/erythematous to forefoot)
Wound: Other (Left foot post-op dressing dry)
Neurological: AO x 3
Objective Data
Lab Data
Lab Results
09/19/24 05:18
09/19/24 05:18
Estimated Creat Clear 35 ml/min 09/19/24 05:18
Lactic Acid 1.4 mmol/L (0.7-2.0) 09/16/24 19:37
Lactic Acid Cancelled 09/16/24 19:37
Total Bilirubin 0.9 mg/dl (0.2-1.3) 09/16/24 19:37
AST 36 U/L (17-59) 09/16/24 19:37
ALT 39 U/L (0-50) 09/16/24 19:37
Alkaline Phosphatase 204 U/L (38-126) H 09/16/24 19:37
C-Reactive Protein 74.10 mg/L (0.0-10.00) H 09/17/24 05:47
Most recent labs reviewed.
Micro Results:
09/16/24 23:36 Wound Culture - Preliminary
Foot - Left Pseudomonas species
Staphylococcus aureus
Streptococcus agalactiae
Gram Stain - Preliminary
09/18/24 13:00 Tissue Culture - Preliminary
Bone Gram Stain - Preliminary
09/16/24 19:37 Blood Culture - Preliminary
Blood/Venous No Growth in 48 hours- Final report to follow
09/16/24 Left foot and ankle xray: suspicious for acute osteomyelitis at the head of the fourth metatarsal and the base of the proximal phalanx of the fourth toe.
09/18/24 MRI LLE: There is findings of soft tissue infection along the lateral aspect of the forefoot with a soft tissue defect/necrotic tissue which extends to the fourth metatarsal head. There is associated osteomyelitis involving the majority of
the fourth metatarsal and fourth proximal phalanx. There is an associated peripherally enhancing joint effusion of the fourth metatarsophalangeal joint, likely an element of septic arthritis. Additionally there are findings of osteomyelitis along
the medial aspect of the fifth metatarsal head.
--- NOTE | 2024-09-19 14:50 | W.PN.POD ---
Today's Communication
Today's Communication
Amputation site stable and viable, left foot.
OK for discharge.
IV antibiotics as per ID.
Assessment / Plan
-
Assessment:
-Infected, neurotrophic ulceration of the plantar left foot, with fourth metatarsal, fourth toe, and partial fifth metatarsal head osteomyelitis.
-S/P one day partial fourth ray amputation, and partial debridement of fifth metatarsal head. left foot.
-Idiopathic peripheral neuropathy.
-HTN
-CK3
Plan:
Surgical site stable and viable, without any local signs of infection, left foot.
Likely surgical cure, however, due to fifth metatarsal head involvement, recommended antibiotics on discharge. Contacted Dr. Lancaster. IV antibiotics as per ID.
OK for discharge per podiatry.
Await Wedged surgical shoe from [facility]. WB in surgical shoe only.
Patient will need HHN for wound care: Adaptic, dry gauze, kerlix and Evan wrap dressing to left foot, every other day.
Will see patient in office on . 09/22/24. (Patient already has appointment)
Will follow.
Subjective
Chief Complaint
S/P one day partial fourth ray and partial fifth met head resection, left foot.
Subjective
Patient resting comfortably in bed. Daughter Taina and present. Reports minimal pain overnight. Denies fever, chills or sweats.
Objective
Temp Pulse Resp BP Pulse Ox
98.3 F 99 16 108/63 98
09/19/24 11:05 09/19/24 11:05 09/19/24 11:05 09/19/24 11:05 09/19/24 11:05
09/19/24 05:18
09/19/24 05:18
Vital Signs and Lab results were reviewed.
Dressing clean, dry and intact. Vascular status intact, CFT to the digits 1-2 seconds, left foot.
Mild residual edema of the left foot, cellulitis resolved.
Incision line over fourth ray dorsally and extending through fourth interspace plantarly is stable, with wound edges well apposed, viable and sutures intact. Packing extending out of wound dorsally removed uneventfully.
No malodor, purulence, or local signs of infection noted.
Post-op XRAYS 09/18/24: Postoperative from amputation of the left 4th toe, most of the 4th metatarsal, and a portion of the 5th metatarsal head with air in soft tissues due to open wound, and swelling in the surgical bed.
[2024-09-19 15:20] VITALS: BP 105/54
[2024-09-19 16:32] VITALS: BP 105/54
[2024-09-19 23:52] VITALS: BP 118/54
[2024-09-20] MEDS: ZOSYN 50 IV (05:49)
[2024-09-20 06:00] VITALS: BMI 17.0
[2024-09-20 06:35] LABS: Hemoglobin 10.9 g/dL (13.0-18.0); Mean Corp Hgb Conc. 34.1 g/dL (33.0-37.0); Mean Corpuscular Hgb 34.6 pg (27.0-31.0); Mean Corpuscular Volume 101.6 fL (80.0-94.0); Mean Platelet Volume 10.1 fL (7.4-10.4); Platelet Count 231 10^3/uL (130-400); Red Blood Cell Count 3.15 10^6/uL (4.70-6.10); Red Cell Dist. Width 11.2 % (11.5-14.5)
[2024-09-20 06:55] VITALS: BP 112/63
[2024-09-20 07:23] LABS: Blood Urea Nitrogen 28 mg/dl (9-20); Calcium 8.5 mg/dl (8.4-10.2); Carbon Dioxide 20 mmol/L (22-30); Chloride 104 mmol/L (98-107); Estimated Creatinine Clearance 32 ml/min; Glucose 109 mg/dl (70-99); Potassium 4.5 mmol/L (3.5-5.1); Sodium 135 mmol/L (135-145); eGFR 39.99
[2024-09-20] MEDS: CRESTOR 5 MG PO (07:58)
[2024-09-20] MEDS: NORVASC 5 MG PO (07:58)
[2024-09-20] MEDS: HEPARIN 5000 UNITS SC ×3 (07:59→22:46)
--- NOTE | 2024-09-20 08:54 | W.PN.HOSP.TC ---
Today's Communication/Plan
-
Continue IV antibiotics
Assessment / Plan
Assessment / Plan
Physical exam:
General: Well Developed, Well Nourished and No Apparent Distress
HEENT: Normocephalic, Atraumatic and Moist Mucous Membranes
Respiratory: Clear to Auscultation; Negative Wheezes, Rales or Rhonchi
Cardiac: Regular Rhythm and S1/S2
GI: Soft, Nontender and Nondistended
Musculoskeletal: Left foot postop findings. No Clubbing, No Cyanosis and No Edema
Neuro: Awake, Alert and Oriented, no neurological deficit
Psych: Calm
Podiatry procedure:
Partial fourth ray amputation, and partial fifth metatarsal head resection, left foot. Specimen for infected bone sent to pathology and micro. Clean bone margin sent for pathology as well. Minimal to no blood loss.
A/P:
L fourth metatarsal head osteomyelitis
Left Foot Cellulitis
- Change IV antibiotics from Zosyn to IV Cefepime today
- OR bone culture with Staph aureus, CONS, path pending
- Wound swab with Pseudomonas Staph aureus and strep agalactiae
- MRI reviewed
- Podiatry did amputation on 09/18 and recommends wedged surgical shoe postop and HH
- Appreciated ID consult
- PT eval appreciated
- Pain control
- Discussed with family at bedside prior
- ID recommends long-term IV antibiotic
Benign Hypertension
- Stable. Continue amlodipine.
Hyperlipidemia
- Continue rosuvastatin 5 mg p.o. daily
CKD III
- Avoid nephrotoxic
- Creatinine 1.8 today (creatinine 2 upon admission)
DVT Prophylaxis: Subcut Heparin
Code Status: Full
Total time spent on today's encounter was 52 minutes which included time spent in counseling the patient/family regarding diagnosis and treatment plan as listed above, goals of care, and symptom management. Case was discussed with nursing staff,
specialists, and care coordinators/case management. All labs and imaging personally reviewed by me. Remainder the time spent in detailed review of previous records, lab data, imaging, and other medical provider documentation.
Anticipated Discharge: 24 - 48 hours
Subjective/Interval History
-
Date of Service: September 20, 2024
Mild foot discomfort. No nausea vomiting or diarrhea. Afebrile
Objective Data
-
Labs:
Laboratory Results
09/20/24
05:16
WBC 9.0
Hgb 10.9 L
Hct 32.0 L
Plt Count 231
Sodium 135
Potassium 4.5
Chloride 104
Carbon Dioxide 20 L
BUN 28 H
Creatinine 1.8 H
Glucose 109 H
Calcium 8.5
Vital Signs:
Vital Signs
Temp Pulse Resp BP Pulse Ox
98.3 F 89 18 112/63 96
09/20/24 06:55 09/20/24 06:55 09/20/24 06:55 09/20/24 07:58 09/20/24 08:00
I&O
09/19/24 09/20/24 09/21/24
06:59 06:59 06:59
Intake Total 390 / 390 360 / 360 820 / 820
Output Total 800 / 800 1745 / 1745
Balance -410 / -410 360 / 360 -925 / -925
[2024-09-20 09:15] VITALS: BP 106/48; BP 117/55; BP 131/66; PULSE 95; O2SAT 98
--- NOTE | 2024-09-20 09:56 | W.PN.ID1 ---
Date of Service
Date of Service: September 20, 2024
Today's Communication
Change abx to cefepime.
Assessment / Plan
# Osteomyelitis of left 4th toe,metatarsal head and medial 5th met head
# Left foot cellulitis
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
- OR bone cx: Staph aureus, CoNS (on Zosyn); path pending
- Wound swab Pseudomonas, Staph aureus (MSSA), Group B strep
- Per Dr. Yun, he is concerned about the 5th met head with residual osteo.
- Replace Zosyn (d5) with cefepime 2g IV q12h x 6 weeks through 10/28/24
- Infusion sheet submitted to case management.
-Explained to patient insurance co. closed on weekends and thus unable to start setting up Home IV Infusion until Saturday.
- Place PICC tomorrow.
Chief Complaint
-: Other (Osteo)
Subjective / Review of Systems
No new complaints today. Tolerating abx.
Vital Signs / Physical Exam
Vital Signs
Vital Signs
Temp Pulse Resp BP Pulse Ox
98.3 F 89 18 112/63 96
09/20/24 06:55 09/20/24 06:55 09/20/24 06:55 09/20/24 07:58 09/20/24 08:00
Physical Exam
Constitutional: No Acute Distress
Cardiovascular: Regular Rate and S1/S2
Pulmonary: Clear
Gastrointestinal: Soft, Non Tender and Non Distended
Genito-Urinary: Negative CVA Tenderness
Neurological: AO x 3
Objective Data
Lab Data
Lab Results
09/20/24 05:16
09/20/24 05:16
Estimated Creat Clear 32 ml/min 09/20/24 05:16
Lactic Acid 1.4 mmol/L (0.7-2.0) 09/16/24 19:37
Lactic Acid Cancelled 09/16/24 19:37
Total Bilirubin 0.9 mg/dl (0.2-1.3) 09/16/24 19:37
AST 36 U/L (17-59) 09/16/24 19:37
ALT 39 U/L (0-50) 09/16/24 19:37
Alkaline Phosphatase 204 U/L (38-126) H 09/16/24 19:37
C-Reactive Protein 74.10 mg/L (0.0-10.00) H 09/17/24 05:47
Most recent labs reviewed.
Micro Results:
09/18/24 13:00 Tissue Culture - Preliminary
Bone Staphylococcus aureus
Coagulase neg. staphylococcus
Gram Stain - Preliminary
09/16/24 23:36 Wound Culture - Preliminary
Foot - Left Pseudomonas aeruginosa
S aureus-Methicillin Sensitive
Streptococcus agalactiae
Gram Stain - Preliminary
09/16/24 19:37 Blood Culture - Preliminary
Blood/Venous No Growth in 72 hours- Final report to follow
09/16/24 Left foot and ankle xray: suspicious for acute osteomyelitis at the head of the fourth metatarsal and the base of the proximal phalanx of the fourth toe.
09/18/24 MRI LLE: There is findings of soft tissue infection along the lateral aspect of the forefoot with a soft tissue defect/necrotic tissue which extends to the fourth metatarsal head. There is associated osteomyelitis involving the majority of
the fourth metatarsal and fourth proximal phalanx. There is an associated peripherally enhancing joint effusion of the fourth metatarsophalangeal joint, likely an element of septic arthritis. Additionally there are findings of osteomyelitis along
the medial aspect of the fifth metatarsal head.
Care Review
Plan reviewed with: Other (Case management, Darius Mccall.)
--- NOTE | 2024-09-20 10:57 | CM ---
Chart reviewed and medical case worker met with patient and spoke with ID physician and recommendation is for IV ABX at discharge, medical case worker met with patient to review infusion options, and referral sent to [facility] to check insurance benefit and
come out to hospital to teach patient home infusion.
Plan: Referral sent to [facility] for home infusion, plan will be to home with spouse and home infusion from [facility] when stable.
[2024-09-20] MEDS: MAXIPIME 2000 MG IV ×2 (11:10→22:46)
[2024-09-20] MEDS: STERILE WATER FOR INJECTION 10 ML IV ×2 (11:10→22:45)
[2024-09-20 15:20] VITALS: BP 108/49
[2024-09-20 23:06] VITALS: BP 101/60
[2024-09-21 06:00] VITALS: BMI 17.2
[2024-09-21 06:44] LABS: % Basophils 0.3 % (0-2); % Eosinophils 3.9 % (0-6); % Immature Granulocytes 0.3 % (0-0.5); % Lymphocytes 9.6 % (20.5-51.1); % Monocytes 11.8 % (1.7-9.3); % Neutrophils 74.1 % (42.2-75.2); Absolute Eosinophils 0.3 10^3/uL (0-0.7); Absolute Lymphocytes 0.8 10^3/uL (1.2-3.4); Absolute Monocytes 0.9 10^3/uL (0.1-0.6); Absolute Neutrophils 5.8 10^3/uL (1.4-6.5); Hematocrit 31.3 % (39.0-52.0); Hemoglobin 10.7 g/dL (13.0-18.0); Mean Corp Hgb Conc. 34.2 g/dL (33.0-37.0); Mean Corpuscular Hgb 34.9 pg (27.0-31.0); Mean Platelet Volume 9.6 fL (7.4-10.4); Nucleated Red Blood Cells % 0 % (-); Platelet Count 230 10^3/uL (130-400); Red Blood Cell Count 3.07 10^6/uL (4.70-6.10); Red Cell Dist. Width 11.2 % (11.5-14.5); White Blood Cell Count 7.9 10^3/uL (4.8-10.8)
[2024-09-21 07:05] VITALS: BP 118/53
[2024-09-21 07:06] LABS: Blood Urea Nitrogen 31 mg/dl (9-20); Calcium 8.6 mg/dl (8.4-10.2); Carbon Dioxide 22 mmol/L (22-30); Chloride 107 mmol/L (98-107); Estimated Creatinine Clearance 35 ml/min; Glucose 113 mg/dl (70-99); Potassium 4.8 mmol/L (3.5-5.1); Sodium 136 mmol/L (135-145); eGFR 42.83
[2024-09-21] MEDS: NORVASC 5 MG PO (08:40)
[2024-09-21] MEDS: HEPARIN 5000 UNITS SC (08:40)
[2024-09-21] MEDS: CRESTOR 5 MG PO (08:40)
[2024-09-21] MEDS: STERILE WATER FOR INJECTION 10 ML IV (09:34)
[2024-09-21] MEDS: MAXIPIME 2000 MG IV (09:34)
--- NOTE | 2024-09-21 10:32 | W.PN.HOSP.TC ---
Today's Communication/Plan
-
Discharge
Assessment / Plan
Assessment / Plan
Gen-AAOx3, NAD
HEENT-NC, AT, anicteric, clear oral mm
Neck-supple
CV-reg, no M, +S1/S2
Lungs-clear B/L
Abd-soft, NT, ND
Ext-no edema
Musculoskeletal-no cyanosis, clubbing, left foot dressing and surgical shoe
Skin-warm and dry
Neuro-grossly non-focal
Psych-calm, cooperative
Acute left fourth metatarsal head osteomyelitis
Left Foot Cellulitis -continue IV cefepime every 12 hours until October 28 as per ID. PICC line in place.
Follow-up outpatient with PCP and podiatry. 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
Essential hypertension
- Stable. Continue amlodipine.
Hyperlipidemia
- Continue rosuvastatin 5 mg p.o. daily
CKD 3b -stable.
DVT Prophylaxis: Subcut Heparin
Code Status: Full
Dispo -medically stable for discharge home with VNA and IV antibiotics. Case management aware.
32 minutes spent in discharge process.
Anticipated Discharge: Today
Subjective/Interval History
-
Date of Service: September 21, 2024
Patient seen and examined. No complaints.
Objective Data
-
Labs:
Laboratory Results
09/21/24
06:29
WBC 7.9
Hgb 10.7 L
Hct 31.3 L
Plt Count 230
Sodium 136
Potassium 4.8
Chloride 107
Carbon Dioxide 22
BUN 31 H
Creatinine 1.7 H
Glucose 113 H
Calcium 8.6
Vital Signs:
Vital Signs
Temp Pulse Resp BP Pulse Ox
98.7 F 82 16 118/53 100
09/21/24 07:05 09/21/24 08:40 09/21/24 07:05 09/21/24 08:40 09/21/24 07:05
I&O
09/20/24 09/21/24 09/22/24
06:59 06:59 06:59
Intake Total 360 / 360 1940 / 194
Output Total 2295 / 2295
Balance 360 / 360 -355 / -355
Review of Systems
-
History Source: Patient
All other systems: Reviewed and negative
--- NOTE | 2024-09-21 10:36 | W.DS.TRANS ---
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
-
Discharge Instructions:
Discharge Diagnosis/Procedures Left foot osteomyelitis
Diet Low Cholesterol,Low Fat
Activity As tolerated
Driving Restrictions As prior to admission
Bathing Restrictions None
Instructions:
Stand-Alone Forms:
Changes to Home Medications: No
Discharge Medications:
DC Medications w/original date entered in [employer]
amlodipine 5 mg tablet 5 mg PO DAILY Blood Pressure 09/16/24
rosuvastatin 5 mg tablet 5 mg PO DAILY High Cholesterol 09/16/24
cefepime 2 gram solution for injection 2,000 mg IV Q12H #0 ea 09/21/24
Home Medication Changes
Pending Results: No
--- NOTE | 2024-09-21 10:52 | CM ---
Addendum entered by Alisson Schmidt RN 09/21/24 11:41:
CM faxed chest xray and PICC line details to [facility].
Original Note:
CM confirmed with [facility] RN that she will be in the hospital around 12:30 for teaching. CM updated patient who will call his to participate in teaching session. CM updated bedside RN and hospitalist.
PLAN: [facility].
--- NOTE | 2024-09-21 11:04 | W.PN.ID1 ---
Date of Service
Date of Service: September 21, 2024
Today's Communication
DC home when home infusion set up.
Assessment / Plan
# Osteomyelitis of left 4th toe,metatarsal head and medial 5th met head
# Left foot cellulitis
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
- OR bone cx: Staph aureus (MSSA), CoNS (on Zosyn); path pending
- Wound swab Pseudomonas, Staph aureus (MSSA), Group B strep
- Per Dr. Yun, he is concerned about the 5th met head with residual osteo.
- Continue cefepime 2g IV q12h x 6 weeks through 10/28/24
- Infusion sheet submitted to case management 09/20.
- Picc in place.
Chief Complaint
-: Other (Osteo)
Subjective / Review of Systems
Tolerating cefepime.
Vital Signs / Physical Exam
Vital Signs
Vital Signs
Temp Pulse Resp BP Pulse Ox
98.7 F 82 16 118/53 100
09/21/24 07:05 09/21/24 08:40 09/21/24 07:05 09/21/24 08:40 09/21/24 07:05
Physical Exam
Constitutional: No Acute Distress and Comfortable
Cardiovascular: Regular Rate and S1/S2
Pulmonary: Clear
Gastrointestinal: Soft, Non Tender and Non Distended
Genito-Urinary: Negative CVA Tenderness
Neurological: AO x 3
Objective Data
Lab Data
Lab Results
09/21/24 06:29
09/21/24 06:29
Estimated Creat Clear 35 ml/min 09/21/24 06:29
Lactic Acid 1.4 mmol/L (0.7-2.0) 09/16/24 19:37
Lactic Acid Cancelled 09/16/24 19:37
Total Bilirubin 0.9 mg/dl (0.2-1.3) 09/16/24 19:37
AST 36 U/L (17-59) 09/16/24 19:37
ALT 39 U/L (0-50) 09/16/24 19:37
Alkaline Phosphatase 204 U/L (38-126) H 09/16/24 19:37
C-Reactive Protein 74.10 mg/L (0.0-10.00) H 09/17/24 05:47
Most recent labs reviewed.
Micro Results:
09/18/24 13:00 Tissue Culture - Preliminary
Bone S aureus-Methicillin Sensitive
Coagulase neg. staphylococcus
Gram Stain - Preliminary
09/16/24 19:37 Blood Culture - Preliminary
Blood/Venous No Growth in 4 days- Final report to follow
09/16/24 23:36 Wound Culture - Final
Foot - Left Pseudomonas aeruginosa
S aureus-Methicillin Sensitive
Streptococcus agalactiae
Gram Stain - Final
09/16/24 Left foot and ankle xray: suspicious for acute osteomyelitis at the head of the fourth metatarsal and the base of the proximal phalanx of the fourth toe.
09/18/24 MRI LLE: There is findings of soft tissue infection along the lateral aspect of the forefoot with a soft tissue defect/necrotic tissue which extends to the fourth metatarsal head. There is associated osteomyelitis involving the majority of
the fourth metatarsal and fourth proximal phalanx. There is an associated peripherally enhancing joint effusion of the fourth metatarsophalangeal joint, likely an element of septic arthritis. Additionally there are findings of osteomyelitis along
the medial aspect of the fifth metatarsal head.
Care Review
Plan reviewed with: Physician (Dr. Arguelles)
[2024-09-21 13:50] VITALS: BP 134/55
== END 2024-09-21 14:02 | disposition home or self-care (01) | DRG 475 ==
LOC: 2 SOUTH 01:17
PROVIDERS: Hospitalist; Radiology Diagnostic Radiology; Student in an Organized Health Care Education/Training Program; ADMITTING PHYSICIAN Hospitalist; ATTENDING PHYSICIAN Hospitalist; EMERGENCY PHYSICIAN Emergency Medicine; FAMILY PHYSICIAN Family Medicine; OTHER PHYSICIAN Internal Medicine Infectious Disease; OTHER PHYSICIAN Podiatrist Foot & Ankle Surgery
PROC: 0Y6N0ZD Detachment at Left Foot, Partial 4th Ray, Open Approach (ICD-10-PCS; 2024-09-18)
PROC: 0QBP0ZZ Excision of Left Metatarsal, Open Approach (ICD-10-PCS; 2024-09-18)
PROC: 02HV33Z Insertion of Infusion Device into Superior Vena Cava, Percutaneous Approach (ICD-10-PCS; 2024-09-20)
DX: M86.172 Other acute osteomyelitis, left ankle and foot (principal); L03.116 Cellulitis of left lower limb; Z68.1 Body mass index [BMI] 19.9 or less, adult; I12.9 Hypertensive chronic kidney disease with stage 1 through stage 4 chronic kidney disease, or unspecified chronic kidney disease; N18.32 Chronic kidney disease, stage 3b; E78.00 Pure hypercholesterolemia, unspecified; R63.6 Underweight; G60.9 Hereditary and idiopathic neuropathy, unspecified; Z79.899 Other long term (current) drug therapy
CPT/HCPCS: 88304; 88305; 88311; 71045; 73610; 73630; 73720; 80048; 80053; 83036; 83605; 85025; 85027; 86140; 87040; 87070; 87077; 87147; 87176; 87186; 87205; 96365; 96366; 97116; 97163; 99285; A9585

== ENCOUNTER 2024-10-15 22:12 | Inpatient (IN) | payer OTHER, SELFPAY ==
[2024-10-15 17:26] VITALS: BP 112/76
[2024-10-15 17:34] VITALS: BP 129/87
--- NOTE | 2024-10-15 17:57 | ED.GENMED ---
History of Present Illness
General
Chief Complaint: Breathing Problem
Source: patient and spouse
Time Seen by Provider: 10/15/24 17:39
History of Present Illness
History of Present Illness:
This patient is a 69-year-old male who was recently admitted to the hospital secondary to osteomyelitis of his left foot/toes. He had surgery done, and was eventually discharged with a PICC line and continued antibiotics which he is expected to
take until October 28. He has noted over the last few days at least that he feels dizzy when he stands upright associated with dyspnea on exertion. He went to his family doctor yesterday describing these complaints, associated with mild anorexia, a 20
pound weight loss unintentionally in the last 5 months and a dry mouth. He was referred for lab work. Today he went to get that blood work done and walking into the area he noted he was very dyspneic. A bystander checked his pulse ox and it was
noted to be 78%. He declined medical care at that time. He is unaware of his results. He denies chest pain, fever, chills, cough, sore throat, rhinorrhea, vomiting. He has mild nausea. He denies abdominal pain. He has been constipated lately
but denies melena, hematochezia. Of note, recent blood work did suggest worsening renal function.
Past History
Past History
ED Past Medical History: HTN, Hypercholesterolemia and Other (Osteomyelitis)
ED Past Surgical History: Orthopedic
Social History
Tobacco: Non-smoker
Alcohol: None
Drug: None
Personal:
Living: with family
Phy Exam
Physical Exam
Physical Exam:
GENERAL: Alert , in no apparent distress, extremely thin
EYE: pupils equal and reactive
NECK: Supple, no significant adenopathy.
ENT: o/p clr, mmm.
CARDIAC: Regular rate and rhythm .
LUNGS: Clear breath sounds bilaterally, no acute respiratory distress, no wheezes/rales/rhonchi
ABDOMEN: Soft, without focal tenderness, no r/g, no cvat
NEUROLOGICAL: Alert and oriented, no focal neuro deficits
SKIN: Warm and dry, skin intact.
MUSCULOSKELETAL: No edema, well perfused. Left foot wrapped
PSYCH: Normal and appropriate interaction.
Scores
Heart Failure Risk
Heart Failure Risk Score: Not Applicable
Sepsis
Sepsis Screening
Sepsis Assessment: Sepsis Ruled Out
Sepsis Screen
Sepsis Screen: Sepsis Ruled Out
Date: 10/20/24
Time: 14:59
Course
Orders/Labs/Results
Orders:
Orders
10/15/24 Dinner
Regular
At Your Request: Limited Participation
10/15/24 17:56
Electrocardiogram (*1) Stat
Reason for Study: Other
Other Reason for Exam: chest pain
Cardiac Monitoring- Treatment ONCE
EKG- Treatment ONCE
Pulse Ox/cont/shift [RESP] Stat
Quantity: 1
10/15/24 17:57
US Legs, Bilateral [US Periph Venous LOWER Ext Dustin] Urgent
Comment:
Reason For Exam: recent surgery, sob
10/15/24 18:02
CR Chest - 2 Views Urgent
Comment:
Reason For Exam: PICC placement confirmation
10/15/24 18:12
Complete Blood Count/No Diff Urgent
Comprehensive Metabolic Panel Urgent
NT-proBNP Urgent
PTT Urgent
Prothrombin Time Urgent
Troponin I Urgent
10/15/24 19:38
Heparin 4,600 units IV NOW STA
10/15/24 19:42
0.9% Sodium Chloride 500 ml [Nss] 500 ml IV BOLUS
10/15/24 19:45
Heparin 77825 Units/250 ml 25,000 units in 250 ml IV PER PROTOCOL
Weight to be used for heparin protocol in kilograms (kg):: 58
Protocol:: DVT/PE
PTT Goal Range to be used:: PTT 73 to 111 seconds
Order type:: Initial
INITIAL Infusion Dose (UNITS/KG/hr) & then follow protocol:: 18 units/kg/hr
Infusion Dose in UNITS/hr & then follow protocol (UNITS/hr):: 1,000
INFUSION RATE in mL/hr & then follow protocol (mL/hr):: 10
For DVT/PE algorithm, re-bolus for low PTT?: Yes
PTT less than or equal to 64 seconds:: Re-bolus 80 units/kg (max 10,000units). Increase by 200 units/hr
(+ 2mL/hr)
PTT 64.1 to 72.9 seconds:: Re-bolus 40 units/kg (max 5,000 units). Increase by 100 units/hr
(+ 1mL/hr)
PTT 73 to 111 seconds:: Target Range. No change in rate.
PTT 111.1 to 130.9 seconds:: Decrease rate by 100 units/hr (- 1 mL/hr)
PTT 131 to 199.9 seconds:: HOLD for 1 hr. Then decrease by 200 units/hr (- 2mL/hr)
PTT greater than or equal to 200 seconds:: HOLD for 2 hrs & Notify Provider. Then decrease by 200 units/hr
(- 2mL/hr)
Lab follow-up:: Each change, PTT q6h until 2 consecutive are therapeutic. Then
PTT daily.
10/15/24 21:30
Admit/Transfer Patient As Directed
Co-Sign Provider:
Level of Care: Inpatient admission
Assign to:: Telemetry
Physician / Group: Stefanie
Diagnosis: Hypoxia
Reason for Telemetry: Chest Pain syndromes
Date to Stop Telemetry: 10/17/24
Time to Stop Telemetry: 11:00
Reason for Hospitalization: Hypoxia
Expected length of stay greater than two midnights?: Yes
ELOS- Estimated Length of Stay in days: 2
I certify the patient meets the requirements for IP care: Yes
PRN Pain Medication Management As Directed
May give lesser potent ordered pain med per pt: Yes
preference::
Protocol:: Medication orders for pain may be administered in a
manner that supports deferring to patient preference
when the pt is:
- Requesting an ordered lesser potent pain medication.
Least to most potent pain medications are defined
as: acetaminophen < NSAID < tramadol < opioids
(morphine, oxycodone, hydromorphone).
- Requesting a lesser dose of the same medication IF
ORDERED.
- Requesting a less intrusive route of administration
if both routes are prescribed by the provider (PO <
IV).
10/15/24 21:31
Code Status As Directed
Resuscitation Status: Full Code
10/15/24 22:00
Flush (0.9% Sodium Chloride) [Flush (Nss)] See Dose Instructions IV PER PROTOCOL
10/15/24 22:16
0.9% Sodium Chloride 1000 ml [Nss] 1,000 ml IV 125 mls/hr
Acetaminophen [Tylenol] 650 mg PO Q4HPRN PRN
Metoprolol [Lopressor] 2.5 mg IV Q6HPRN PRN
Ondansetron Injectable [Zofran] 4 mg IV Q6HPRN PRN
10/15/24 22:16
Heparin Protocol- PTT Orders As Directed
PTT per Heparin protocol: -Obtain CBC and baseline PTT - if not already collected.
-Obtain PTT 6 hours from start of infusion. Then, every 6 hours until 2 consecutive
PTT's are therapeutic. Then, PTT Daily.
-With each rate change, obtain PTT every 6 hours until 2 consecutive PTT's are
therapeutic. Then, PTT Daily.
Activity As Directed
Activity Level: With Assistance
Bladder Scan As Directed
Follow Bladder Retention/Intermittent Cath Algorithm?: Yes
Frequency: Per Retention Algorithm
Comment: as per intermittent urinary catheter algorithm
Bladder Scan As Directed
Follow Bladder Retention/Intermittent Cath Algorithm?: Yes
PRN if no void in __ hours: 6
Frequency: Per Retention Algorithm
If Bladder Scan Result >: 400
then:: Straight cath
Intake/ Output As Directed
Frequency: Per unit guidelines
Notify MD As Directed
Notify physician if: PTT is greater than or equal to 200.
Straight Cath As Directed
Frequency: Per Retention Algorithm
Additional Instructions: as per intermittent urinary catheter algorithm
Straight Cath As Directed
Frequency: Per Retention Algorithm
Additional Instructions: straight cath as needed per acute urinary retention algorithm for 24 hrs
Additional Instructions: for bladder scan greater than 400 mL
Vital Signs As Directed
Frequency: Per unit guidelines
O2 Therapy [RESP] Routine
Nasal Cannula Liter Flow: 2 LPM
Titrate/Wean O2 to maintain O2 sat greater than (%): 90
10/15/24 23:01
Urinalysis Routine
Date Specimen was Collected: 10/15/24
Time Specimen was Collected: 22:49
Urine - Eosinophils [Body Fluid for Eosinophils] Routine
Fluid Source: Urine
Date Specimen was Collected: 10/15/24
Time Specimen was Collected: 22:49
Urine Creatinine Routine
Date Specimen was Collected: 10/15/24
Time Specimen was Collected: 22:49
Urine Protein/Creat Ratio (Random) [Protein/Creat Ratio (Random)] Routine
Date Specimen was Collected: 10/15/24
Time Specimen was Collected: 22:49
Urine Sodium Routine
Date Specimen was Collected: 10/15/24
Time Specimen was Collected: 22:49
10/15/24 23:26
Venous Blood Gas Urgent
%Oxygen/Room Air: 28%
10/16/24 02:43
BMP [Basic Metabolic Panel] IN AM
D-Dimer IN AM
Folate IN AM
Iron IN AM
PTT Stat
TSH Reflex To Free T4 IN AM
Total Iron Binding IN AM
Vitamin B12 IN AM
10/16/24 02:44
Type+Screen IN AM
Reticulocyte Count IN AM
Troponin I IN AM
10/16/24 06:00
Electrocardiogram (*1) IN AM
Reason for Study: Other
Other Reason for Exam: pulmonary embolism
10/16/24 08:00
Cefepime HCl [Maxipime] 2,000 mg IV DAILY
Docusate Sodium [Colace] 100 mg PO BID
Rosuvastatin Calcium [Crestor] 5 mg PO DAILY
10/17/24 11:00
DC Protocol for Telemetry ONCE
Abnormal Lab Results
10/15/24
18:12
WBC 2.8 L 10^3/uL
(4.8-10.8)
RBC 2.91 L 10^6/uL
(4.70-6.10)
Hgb 10.1 L g/dL
(13.0-18.0)
Hct 27.6 L %
(39.0-52.0)
MCV 94.8 H fL
(80.0-94.0)
MCH 34.7 H pg
(27.0-31.0)
MPV 10.8 H fL
(7.4-10.4)
PT 17.3 H Sec
(11.4-14.6)
Sodium 134 L mmol/L
(135-145)
Chloride 111 H mmol/L
(98-107)
Carbon Dioxide 14 L* mmol/L
(22-30)
BUN 77 H mg/dl
(9-20)
Creatinine 2.8 H mg/dL
(0.7-1.3)
Glucose 118 H mg/dl
(70-99)
10/15/24 18:12
10/15/24 18:12
Vital Signs
Initial and Last Documented VS:
Initial Vital Signs
Temp Pulse Resp BP Pulse Ox
97.8 F 92 24 112/76 80
10/15/24 17:26 10/15/24 17:26 10/15/24 17:26 10/15/24 17:26 10/15/24 17:26
Last Documented Vital Signs
Temp Pulse Resp BP Pulse Ox
97.5 F 62 16 96/51 100
10/20/24 11:30 10/20/24 11:30 10/20/24 11:30 10/20/24 11:30 10/20/24 11:30
*Critical Care Note
Total Time (30-74mins, 75-104mins- exclusive of procedures): Not Applicable
Update Note
Update Note:
Patient presents to the Emergency Department with dyspnea on exertion, dizziness
Number and Complexity of Problems Addressed at the Encounter
� Chronic conditions affecting care:
� Acute Exacerbation and/or Progression of Chronic Illness:
� Differential Diagnosis includes: But not limited to anemia, PE, ACS, etc. etc.
Amount and/or Complexity of Data to be Reviewed and Analyzed
� I performed an independent evaluation of and my interpretation is:
EKG: Read by me, a flutter with 4-1 block, no acute ischemia noted that I thought this rhythm was not noted on rhythm strip reviewed from 09/17/2024
CT:
Xrays: Chest x-ray read by me NAD
Laboratory Studies: New neutropenia, stable anemia none anion gap metabolic acidosis potentially related to tachypnea, worsening renal insufficiency potassium normal..bnp elevation likley related to s uspected pe
Other:
� Review of other/old records reveals: Discharge summary from most recent hospitalization reviewed by me
� Clinical information was obtained by an independent historian: who is bedside
� Prescriptions/Medications Considered but not given:
� Further testing considered but not performed: Wanted to get a CT to rule out PE however GFR does not permit this. I called nuclear licensing engineer on-call who indicated that the isotope will not be available until tomorrow
morning. She has ordered it so that it can be done tomorrow morning.
Risk of Complications and/or Morbidity or Mortality of Patient Management
� Social determinants of health affecting care:
� Discussion with other providers (PCP, Hospitalists, Consultants, etc):
� Escalation of care including admission/observation vs risk of discharge considered: Nasal cannula applied, hypoxia resolved, pulse ox now 99%, no respiratory distress.
Patient remained stable here. Unfortunately we are unable to get a CAT scan although a V/Q be performed tomorrow to confirm my high suspicion for a PE. Heparin drip has been started empirically and all details have been discussed with patient,
, and via telephone patient's daughter and son-in-law. Patient denies chest pain, troponin noted to be normal. Ultrasound lower extremities pending. Worsening renal insufficiency noted here, will begin IV fluids and monitor urine output.
Case discussed with hospitalist via [place] text for admission
ED Attending Note
-
Portions of this chart may have been created with voice recognition software.� Occasional wrong word or��sound alike� substitutions may have occurred due to the inherent limitations of voice recognition software.
Discharge Plan
Departure
Patient Disposition: Admit
Date of Disposition: 10/15/24
Time of Disposition: 19:38
Presentation/result/management discussed w/ accepting MD/DO: Hospitalist
Condition: Fair
Discharge Problem:
hypoxia
Interventions
Interventions:
*Risk Screen - Suicide Last Done: 10/15/24 17:45
*General Assessment Last Done: 10/15/24 17:45
*Neglect/Abuse Screening Last Done: 10/15/24 17:45
*ED- Fall Risk Assessment Last Done: 10/15/24 17:45
*ED COVID-19 Vaccine History Last Done: 10/15/24 17:45
*Nursing Disposition Last Done: 10/15/24 22:11
ED- Cardiac Assessment Last Done: 10/15/24 17:45
ED- Pulmonary Assessment Last Done: 10/15/24 17:45
Discharge Date and Time
Discharge Date/Time: 10/15/24 22:13
[2024-10-15 18:00] VITALS: BP 138/67
[2024-10-15 18:28] LABS: Hematocrit 27.6 % (39.0-52.0); Hemoglobin 10.1 g/dL (13.0-18.0); Mean Corp Hgb Conc. 36.6 g/dL (33.0-37.0); Mean Corpuscular Hgb 34.7 pg (27.0-31.0); Mean Corpuscular Volume 94.8 fL (80.0-94.0); Mean Platelet Volume 10.8 fL (7.4-10.4); Platelet Count 135 10^3/uL (130-400); Red Blood Cell Count 2.91 10^6/uL (4.70-6.10); Red Cell Dist. Width 11.6 % (11.5-14.5); White Blood Cell Count 2.8 10^3/uL (4.8-10.8)
[2024-10-15 18:34] LABS: INR 1.36; PT 17.3 Sec (11.4-14.6)
[2024-10-15 18:35] LABS: APTT 27.8 Sec (23.4-35.0)
[2024-10-15 18:43] LABS: ALT (SGPT) 25 U/L (0-50); AST (SGOT) 34 U/L (17-59); Albumin 3.8 g/dl (3.5-5.0); Alkaline Phosphatase 102 U/L (38-126); Blood Urea Nitrogen 77 mg/dl (9-20); Calcium 8.7 mg/dl (8.4-10.2); Carbon Dioxide 14 mmol/L (22-30); Chloride 111 mmol/L (98-107); Glucose 118 mg/dl (70-99); Potassium 3.5 mmol/L (3.5-5.1); Sodium 134 mmol/L (135-145); Total Bilirubin 0.7 mg/dl (0.2-1.3); Total Protein 7.8 g/dl (6.3-8.2); eGFR 23.53
[2024-10-15 18:48] LABS: NT-proBNP 1500 pg/ml; Troponin I 0.017 ng/ml
[2024-10-15 19:29] VITALS: BMI 16.4
[2024-10-15] MEDS: HEPARIN 4600 UNITS IV (20:26)
[2024-10-15] MEDS: HEPARIN 25000 UNITS/250 ML IV (20:27)
[2024-10-15] MEDS: NSS 500 IV (20:30)
[2024-10-15 21:01] VITALS: BP 112/57
--- NOTE | 2024-10-15 21:13 | HPS.HSE ---
Family Physician
-
Family Physician: Dwight Huizar
Chief Complaint
-
Shortness of breath
History of Present Illness
This is a 69-year-old male with past medical history of hyperlipidemia and CKD, recent diagnosis of left foot osteomyelitis on chronic antibiotics since August presenting to the emergency department with episode of shortness of breath and hypoxia.
According to the patient he had dyspnea on exertion today while attempting to get a blood draw. He was seen at the lab by physician we checked his pulse ox and was found to be hypoxic to 78 and decided to send him to the emergency department.
Patient himself reports dyspnea with exertion earlier in the morning but seems to have improved by the time he came to the emergency department but he was found to be hypoxic in the emergency department.
Patient had surgery about a month ago. He reported that he has been mostly immobile since then. He reports no chest pain palpitations but has been having lightheadedness and dizziness. He attributes this to low p.o. intake and this secondary to
low appetite. He denies any fevers or chills. Denies any calf swelling. He reports that on last evaluation by his infectious disease there is still some mild evidence of ongoing infection. Patient denies having any chest pain. He denies any
cough fevers or chills. According to spouse patient has been feeling weak dizzy and intermittently short of breath for several days. She has noted weight loss. There has been no orthopnea PND.
Patient has been sent to the lab for blood work to evaluate for D-dimer. Prior to that he was noted to have elevation in his creatinine and his cefepime dose was decreased to once daily.
On arrival in the emergency department the patient was hypoxic to 80% on room air. He is currently satting 100% on 2 L. Blood pressure was 138/67. Pulse was 76 and respiratory rate was 14. Temperature was nine 7.8. Chest x-ray was completely
clear without any acute infiltrates pneumothorax or pulmonary edema. There is no pleural effusion. ECG shows atrial flutter with 4 1 conduction. Telemetry to [place] shows atrial fibrillation at a rate of 74.
Ultrasound of the left lower extremity was negative for DVT.
Had a white count of 2.8, hemoglobin and platelets were 10.1 and 135. Electrolytes were notable for a bicarb of 14 but otherwise unremarkable. BUN and creatinine were elevated at 77 and 2.8 respectively. Glucose was normal.
The troponin was 0.017. BNP was 1500.
Medical History
Past Medical History
Past Medical History: Reports Hypercholesterolemia and Renal Failure (CKD stage III, baseline creatinine 1.7)
Additional Past Medical History:
Osteomyelitis status post application
Past Surgical History: Reports None
Social History
Tobacco: Non-smoker
Alcohol: Daily (1-2 drinks daily.)
Drug: None
Personal:
Living: With Family
Family History
Family History: Not pertinent and Other (Father: Skin cancer Sister: Pulmonary Fibrosis)
Allergies / Home Medications
Allergies reflects when Allergies were last updated in [employer].
Home Medications with original date entered in [employer]
Allergy/Medication List:
Allergies
Allergy/AdvReac Type Severity Reaction Status Date / Time
No Known Allergies Allergy Verified 10/15/24 17:30
Home Medications
rosuvastatin 5 mg tablet 5 mg PO DAILY High Cholesterol 09/16/24
cefepime 2 gram solution for injection 2,000 mg IV DAILY 10/15/24
Review of Systems
-
History Source: Patient
A 12 point ROS was completed and negative except as noted: Yes
Constitutional: Reports Weight Loss; Denies Fever, Fatigue or Chills
EENT: Reports No Symptoms
Respiratory: Reports Trouble Breathing; Denies Cough
Cardiac: Denies Chest Pain, Palpitations or Syncope
Abdomen/GI: Denies Abdominal Pain, Nausea, Vomiting or Diarrhea
: Denies Dysuria or Frequency
Musculoskeletal: Reports Joint Swelling
Skin: Reports No Symptoms
Neurological: Denies Dizzy or Headache
Endocrine: Reports No Symptoms
Hematologic/Lymphatic: Reports No Symptoms
Psych: Denies Depression or Anxiety
Physical Exam
Vital Signs
Vital Signs
Temp Pulse Resp BP Pulse Ox
97.8 F 87 25 138/67 100
10/15/24 17:26 10/15/24 21:00 10/15/24 21:00 10/15/24 18:00 10/15/24 20:30
Physical Exam
General: Other (69y M in no acute distress.)
HEENT: Moist mucous membranes
Respiratory: Clear; No Wheezes, Rales or Rhonchi
Cardiac: S1/S2 and Irregular Rhythm; No Murmur
GI: Soft, Non Tender, Non Distended and Normal Bowel Sounds
Rectal: Deferred by Provider
Genito-urinary: Deferred by me
Musculoskeletal: No Clubbing, No Cyanosis and Other
Skin: Warm
Neuro: AO x 3 and Nonfocal/grossly intact
Hematologic/Lymphatic: No Lymphadenopathy
Psych: Calm
Laboratory Results
-
10/15/24 18:12
10/15/24 18:12
Laboratory Results
PT 17.3 Sec (11.4-14.6) H 10/15/24 18:12
INR 1.36 10/15/24 18:12
APTT 27.8 Sec (23.4-35.0) 10/15/24 18:12
Total Bilirubin 0.7 mg/dl (0.2-1.3) 10/15/24 18:12
AST 34 U/L (17-59) 10/15/24 18:12
ALT 25 U/L (0-50) 10/15/24 18:12
Alkaline Phosphatase 102 U/L (38-126) 10/15/24 18:12
Troponin I 0.017 ng/ml 10/15/24 18:12
Data Reviewed
-
Diagnostic Radiology: Image Personally Visualized and interpreted and Report Reviewed by me
Medical Tests (Nuc Med, Echo, EKG etc): Image Personally Visualized and interpreted
Lab Data: Labs Reviewed by me
Old Records: Reviewed
Impression/Plan
-
IMPRESSION:
69-year-old male coming in with dyspnea on exertion, hypoxia to 80% on room air with concern for acute pulmonary embolism. Patient is hypoxic but has a very clear sounding chest on auscultation, chest x-ray completely clear. No history of asthma
or COPD or any other interstitial lung disease. No history of congestive heart failure. Recent prolonged hospitalization and surgical procedure as well as prolonged immobility after surgery, status post PICC line. Because of these findings highly
suggestive of pulmonary embolism. However patient denies any chest pain. ECG shows new atrial fibrillation. No acute ischemia. Troponin was negative. BNP is elevated at 1500.
PLAN:
Hypoxia -with completely clear lung examination and chest x-ray highly suggestive of pulmonary embolism in the setting. Impact due to new onset of atrial fibrillation as well is elevated BNP although no evidence suggestive of cardiac strain at this
time.
- Admit to telemetry
- due to TRISTEN on CKD, no CT PE. Obtain VQ scan and D-dimer 9 + echo in AM should be hopefully diagnostic
- Echocardiogram
- Initiated on heparin at this time
- pulmonary consultation in case VQ scan is negative
- Supplemental oxygen for now
Atrial flutter/fibrillation -new onset atrial fibrillation, no symptoms of palpitations chest pain but did complain of episodes of dizziness and lightheadedness. Currently rate controlled off any medications
- Monitor on telemetry
- DC'd amlodipine, as needed metoprolol for now
- [id number] = 1 (potential 2), may not ultimately need full AC if no other indication
- Continue heparin anticoagulation as above for possible PE
- Check echo and TSH
- Cardiology consultation
TRISTEN -BUN to creatinine ratio greater than 28, suspect prerenal azotemia. H/O low appetite, reduced po and weight loss. However cannot rule out or intrarenal process such as interstitial nephritis, tubular necrosis secondary to infection
- continue IV fluids with NS at 125 ml/hr
- check vbg, suspect possible metabolic compensation for respiratory alk but cannot rule out non-gap acidosis
- urinalysis for wbcs that may be suggestive of intersititial nephritis or ATN
- follow i/os
- no history of urinary retention
- consider nephrology consultation if no improvement iwth fluids
Osteomyelitis - Stable.
- continue cefepime renal dose at 2000mg daily
Anemia/leukopenia - Subacute since discharge. Given general decline suspect due to marrow suppression
- check iron/b12/folate and reticulocyte index
- check ldh and bili
Weightloss -
- recommend age appropriate cancer screening -> outpatient colonoscopy
DVT PPX - on heparin s/q
Code status - Full code
[2024-10-15 22:00] VITALS: BP 125/63
[2024-10-15 22:20] VITALS: BP 140/42
[2024-10-15 23:14] LABS: Urine Albumin 2+ (Neg - Trace); Urine Bilirubin Negative (Negative); Urine Character Clear (Clear); Urine Color Yellow; Urine Glucose 2+ (Negative); Urine Ketone Negative (Negative); Urine Leukocyte Negative (Negative); Urine Nitrite Negative (Negative); Urine Occult Blood 4+ (Negative); Urine Urobilinogen Negative (Neg - 1+)
[2024-10-15 23:20] LABS: Urine Amorphous Seen; Urine Squamous Cell 0-2 /LPF (Few); Urine White Cell 0-2 /HPF (0-5)
[2024-10-15 23:21] LABS: Urine Bacteria Many (Negative)
[2024-10-15 23:30] LABS: Protein/creatinine Ratio 2.3; Urine Protein 116 mg/dl; Urine Sodium 22 mmol/L (30-90)
[2024-10-15] MEDS: NSS 1000 IV (23:31)
[2024-10-15 23:34] LABS: Venous Blood Gas B.E. -12.4 mmol/L (-4 to +4); Venous Blood Gas HCO3 14.3 mmol/L (22-27); Venous Blood Gas O2 Sat % 92.6 %; Venous Blood Gas pCO2 35 mmHg (35-48); Venous Blood Gas pH 7.22 (7.32-7.43); Venous Blood Gas pO2 64 mmHg (30-50)
[2024-10-15 23:57] LABS: Body Fluid for Eosinophils No Eosinophils seen
[2024-10-16] MEDS: SODIUM BICARBONATE 1150 MEQ IV (01:49)
[2024-10-16 03:00] VITALS: BP 108/76
[2024-10-16 03:06] LABS: Reticulocyte Count 0.6 % (0.4-2.8)
[2024-10-16 03:15] LABS: D-Dimer 1.69 ug/mlFEU (0.00-0.50)
[2024-10-16 03:26] LABS: APTT > 200 Sec (23.4-35.0)
[2024-10-16 03:33] LABS: Troponin I 0.084 ng/ml
[2024-10-16 03:43] LABS: Blood Urea Nitrogen 73 mg/dl (9-20); Calcium 8.8 mg/dl (8.4-10.2); Carbon Dioxide 15 mmol/L (22-30); Chloride 114 mmol/L (98-107); Estimated Creatinine Clearance 21 ml/min; Glucose 92 mg/dl (70-99); Iron 183 ug/dl (49-181); Potassium 3.4 mmol/L (3.5-5.1); Sodium 140 mmol/L (135-145); eGFR 24.59
[2024-10-16 03:52] LABS: Percent Saturation 83 % (20-50); Total Iron Binding Capacity 220 ug/dl (261-462)
[2024-10-16 04:15] LABS: TSH Reflex To Free T4 1.81 uIU/ml (0.47-4.68)
--- NOTE | 2024-10-16 04:24 | PTCARENOTE ---
pt is aaox3, pt normally does not wear oxygen but is very SOB and JUDGE to stand and pivot to bed. had to increase oxygen to help pt recover, then back to 2L at 100%. pt very unsteady and weak. reports a 15lb weight loss and decrease appetite. pt is
on tele aflutter. pt has no c/o pain at this time. Heparin gtt at 1000units/hr. S/w VAT re: PICC and INT access. Informed SU[employer] José Miguel of lab results- see new orders. pt is oriented to room w/ call garcia in reach.
[2024-10-16 04:34] LABS: Vitamin B12 496 pg/ml (239-931)
[2024-10-16 06:00] VITALS: BMI 15.8
[2024-10-16 07:27] VITALS: BP 93/57
--- NOTE | 2024-10-16 10:17 | CON.PUL ---
Consultation
Consultation Request
Date/Time Consultation Requested: 10/16/24
Date/Time Consultation Performed: 10/16/24
Performing Provider: Nicole
Reason for Consultation: Hypoxia
Medical History
-
History of Present Illness:
Patient is a 69-year-old male with past medical history of hyperlipidemia and CKD, recent diagnosis of left foot osteomyelitis on chronic antibiotics since August presenting to the emergency department with episode of shortness of breath and hypoxia.
He was ambulating into local [facility] for bloodwork and had noticeable JUDGE, pulse ox checked and was found to be hypoxic in the 70s. He notes that since being bedrest from his foot infection, he had not been very active and notes weakness, dizziness
and SOB with little exertion such as standing, and ambulating to the bathroom.
In [facility] ER he was confirmed to be hypoxic at 80% on room air. He is placed on 2 L. Blood pressure was 138/67. Pulse was 76 and respiratory rate was 14. Temperature was 97.8F. Chest x-ray was completely clear without any acute infiltrates
pneumothorax or pulmonary edema. ECG shows atrial flutter with 4-1 conduction.
Of note, his has been concerned with his weight loss and general lack of appetite. His presenting BMI is 15. This has been a steady decline in recent months. He does not obtain routine cancer screening. She notes several years ago he had an
OP Cologuard test that was positive, that he did not follow up on. He has never had a colonoscopy.
Denies any prior known history of lung disease, never smoker. Never on O2 in past.
Past Medical History
Past Medical History: Other (see list below)
Social History
Tobacco: Non-smoker
Alcohol: None
Drug: None
Family History
Family History: Reviewed & Not Pertinent
Allergies / Home Medications
Allergies
Allergy/AdvReac Type Severity Reaction Status Date / Time
No Known Allergies Allergy Verified 10/15/24 17:30
Home Medications
�Medication �Instructions �Recorded �Confirmed �Last Taken �Type
rosuvastatin 5 mg tablet 5 mg PO DAILY High Cholesterol 09/16/24 10/15/24 Unknown History
cefepime 2 gram solution for 2,000 mg IV DAILY Infection 10/15/24 10/15/24 10/15/24 History
injection
Review of Systems
-
History Source: Patient
All other systems: Negative unless noted
Vitals / Labs / Diagnostic Testing
Vital Signs
Temp Pulse Resp BP Pulse Ox
97.6 F 74 18 93/57 100
10/16/24 07:27 10/16/24 07:27 10/16/24 07:27 10/16/24 07:27 10/16/24 07:27
Lab Data
10/15/24 18:12
10/16/24 02:43
Laboratory Results
10/15/24 10/16/24
18:12 02:43
PT 17.3 H
INR 1.36
APTT 27.8 > 200 H*
Diagnostic Testing:
Physical Exam
-
HEENT: Normocephalic, Anicteric and Other (temporal wasting)
Cardiovascular: S1/S2 and Regular Rhythm
Respiratory: Clear and Non-Labored Respirations
GI: Soft, Non Distended and Non Tender
Neurology: Awake, Alert, Oriented and No Motor Deficits
Skin: Warm and Dry
General: Comfortable, Poor Appetite and Other (thin/cachectic appearing)
Assessment
-
Patient is a 69-year-old male with past medical history of hyperlipidemia and CKD, recent diagnosis of left foot osteomyelitis on chronic antibiotics since August presenting to the emergency department with episode of shortness of breath and hypoxia.
He was ambulating into local [facility] for bloodwork and had noticeable JUDGE, pulse ox checked and was found to be hypoxic in the 70s. He notes that since being bedrest from his foot infection, he had not been very active and notes weakness, dizziness
and SOB with little exertion such as standing, and ambulating to the bathroom.
In ER he was confirmed to be hypoxic at 80% on room air. He is placed on 2 L. We are consulted for evaluation.
Acute hypoxic respiratory failure
Leukopenia
Anemia, unclear cause
TRISTEN on CKD, peak 2.87, BL 1.7
Metabolic acidosis
Mild pectus excavatum deformity on CXR
Severe protein calorie malnutrition, unintentional weight loss
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
Chronic kidney disease stage 3, GFR 30-59 ml/min
Essential hypertension
Hyperlipidemia
Acute osteomyelitis of left ankle, recent admission
Cellulitis of foot without toes, left
Underweight, BMI 15.8
Plan
Hypoxemia noted on arrival, O2 aby 80%--he is placed on 2L NC
There is no known history of O2 use at home
Will need to confirm with 6MWT and nocturnal oximetry study
There is no known prior history of lung disease in past
Denies any prior known history of lung disease, never smoker. Never on O2 in past.
CXR obtained indicating NAD
Initial suspicion of PE noted, placed on IV heparin
Duplex and VQ scan negative
Less likely
Of note, his has been concerned with his weight loss and general lack of appetite. His presenting BMI is 15. This has been a steady decline in recent months. He does not obtain routine cancer screening. She notes several years ago he had an
OP Cologuard test that was positive, that he did not follow up on. He has never had a colonoscopy.
Will place CT Chest/AP for evaluation
Dietary consult as well
ECHO results in past reviewed, stable function
Unlikely related to CHF
Can consider bubble study for shunt eval if studies above are inconclusive
Recent foot infection noted
ID is consulted
CKD history, renal following
Limited in terms of IV contrast for imaging
Will need outpatient pulmonary evaluation in our office including PFTs and 6MWT
Reviewed with patient and at bedside
We will follow
Diagnostic Data
CXR 10/15/24- Right PICC line with tip in good position, within the SVC. No evidence of active cardiopulmonary disease. Mild pectus excavatum deformity.
09/20/24- 1. Right upper extremity PICC line in place with the catheter tip projecting over the SVC.
2. Mild biapical lung scarring and pleural thickening.
CT
ECHO 10/16/24- Left ventricle is small in size. Normal left ventricular systolic function. Left ventricular ejection fraction is 55-60% by visual estimate. Normal regional wall motion. Normal left ventricular wall thickness. Normal right
ventricular size and function. Aortic sclerosis without stenosis. No prior study for comparison
PFT
Reports and relevant images were personally reviewed.
-----
Total time spent on this consultation _78__ minutes which includes review of history, physical exam, medications, llaboratory data, personal review of imaging, extensive review of outpatient records, and discussions with care team.
[2024-10-16 10:31] LABS: Troponin I 0.118 ng/ml
--- NOTE | 2024-10-16 10:35 | W.CON.NEPH ---
Addendum entered and electronically signed by Karolina Fernández MD 10/16/24 15:13:
urine eosinophil neg
Original Note:
Consultation
-
Date/Time Consultation Requested: 10/16/24 0959
Date/Time Consultation Performed: 10/16/24 1045
Requesting Provider: Dr Beka Chang
Performing Provider: Karolina Burt
Reason for Consultation: TRISTEN with CKD
Medical History
-
Chief Complaint: sob, dizziness
History of Present Illness:
69 yo M with PMH of HLD on statin, HTN with out meds, CKD stage 3B baseline cr 1.7-2 in August 2024 lost f/u with Dr Webster in 2019 with recent admission to in 08/2024 for acute L fourth MT head osteomyelitis s/p partial fourth ray amputation and
fifth metatarsal head resection on the left foot and has been maintained on home infusion of cefepime scheduled through 10/28. Since the discharge patient became very sedentary and inactive. He also reports decreased appetite and lost 15 pounds.
This was to be nonweightbearing of left foot. He reportedly had dizziness, shortness of breath with hypoxia yesterday at home. Saw the primary care and sent to the ER. His creatinine noted to be 2.8, Higher than baseline and hence nephrology
consulted, cefepime stopped. He reports no dysuria. No nausea or vomiting or diarrhea. No abdominal pain. Shortness of breath has improved. He also noted to have a flutter by EKG and cardiology consult. Currently on IV heparin for suspected PE,
V/Q scan pending. He received a total of 1.5 L of normal saline creatinine this morning is still 2.7. He also noted to have significant metabolic acidosis and oral bicarbonate was started.
Past Medical History
Hypercholesterolemia and Renal Failure (CKD stage III, baseline creatinine 1.7-2)
L fourth MT head osteomyelitis s/p partial fourth ray amputation and fifth metatarsal head resection
Social History
Tobacco: Non-Smoker
Alcohol: Daily
Drug: None
Personal:
Living: With Family
Family History
no ckd
Family History: Not Pertinent
Allergies / Home Medications
Allergy/AdvReac Type Severity Reaction Status Date / Time
No Known Allergies Allergy Verified 10/15/24 17:30
�Medication �Instructions �Recorded �Confirmed �Type
rosuvastatin 5 mg tablet 5 mg PO DAILY High Cholesterol 09/16/24 10/15/24 History
cefepime 2 gram solution for 2,000 mg IV DAILY Infection 10/15/24 10/15/24 History
injection
Review of Systems
-
All other systems: Negative unless noted
Physical Exam
Vital Signs
Vital Signs
Temp Pulse Resp BP Pulse Ox
97.9 F 76 18 117/63 97
10/16/24 11:07 10/16/24 11:07 10/16/24 11:07 10/16/24 11:07 10/16/24 11:07
Lab Results
WBC 2.8 10^3/uL (4.8-10.8) L 10/15/24 18:12
RBC 2.91 10^6/uL (4.70-6.10) L 10/15/24 18:12
Hgb 10.1 g/dL (13.0-18.0) L 10/15/24 18:12
Hct 27.6 % (39.0-52.0) L 10/15/24 18:12
Plt Count 135 10^3/uL (130-400) 10/15/24 18:12
Sodium 140 mmol/L (135-145) 10/16/24 02:43
Potassium 3.4 mmol/L (3.5-5.1) L 10/16/24 02:43
Chloride 114 mmol/L (98-107) H 10/16/24 02:43
Carbon Dioxide 15 mmol/L (22-30) L 10/16/24 02:43
BUN 73 mg/dl (9-20) H 10/16/24 02:43
Creatinine 2.7 mg/dL (0.7-1.3) H 10/16/24 02:43
eGFR 24.59 10/16/24 02:43
Glucose 92 mg/dl (70-99) 10/16/24 02:43
Calcium 8.8 mg/dl (8.4-10.2) 10/16/24 02:43
Nwi-G-Opbfbfhanul Pept 1500 pg/ml 10/15/24 18:12
Albumin 3.8 g/dl (3.5-5.0) 10/15/24 18:12
Physical Exam
General: Awake, Alert, Oriented, AOx3, No Distress and Nontoxic
HEENT: EOMI, Anicteric, Conjunctivae Clear, Ear/Nose Intact and Facial Symmetry
Respiratory: Clear, Normal Excursion and Nonlabored Respirations
Cardiac: S1/S2, Regular Rate/Rhythm and No Edema
Breast: Deferred by me
Abdomen: Soft, Nontender and Nondistended
Musculoskeletal: No Cyanosis, No Edema and Other
Skin: No Rash, Warm and Dry
Neuro: Nonfocal/Grossly Intact
Psych: Insight/judgement good and Appropriate
Data Reviewed
-
Radiology: Report Reviewed by me and Discussed with Patient
Labs: Labs Reviewed by me and Discussed with Patient
Assessment/Plan
-
IMP:
TRISTEN with CKD3b 1.7-2, lost f/u with Dr Webster in 2019
Acute hypoxic respiratory insufficiency-concern of PE
new onset atrial fibrillation/atrial flutter
Hypokalemia
ELevtaed trop; likely non ischemic myocardial injury
Non gap Metabolic acidosis
History of recent osteomyelitis
leukopenia
Anemia
Weightloss
Plan:
A/w sob, concern of PE, noted Atrial arrhythmia
TRISTEN-UA with 4+bld but microhematuria 3-6 rbc, check ck
U PCR at 2.3gm/gm of cr, previous serologies neg in 2020([facility])
can update serologies, check U eoisinophils
Fena is low 0.8 suggest this is prerenal -would give IVF with bicarb
monitor UOP, check renal US
avoid nephrotoxins, off cefepime
met acidosis-non gap, on po bicarb, follow bladder scan
bicarb IVF 1lit
replace k
Bp stable, echo opal EF
pending v/q scan on heparin gtt
d/w pt in detail
--- NOTE | 2024-10-16 10:37 | CON.ID ---
Consultation
-
Date/Time Consultation Requested: 10/16/24 9:31
Date/Time Consultation Performed: 10/16/24 10:37
Requesting Provider: Dr Chang
Performing Provider: Dr Rucker
Reason for Consultation: TRISTEN on outpatient IV antibiotics, new neutropenia
Chief Complaint / Past History
Chief Complaint
shortness of breath
History of Present Illness
Mr Yoder is a 69-year-old male with history of who first presented here on September 16 due to left foot redness and worsening plantar wound; he is not diabetic or known to have neuropathy. He has a chronic callus on the bottom of his left foot.
Then about 1 month prior to arrival he developed a new foot wound which did not heal. He did not report any trauma to the area. Then several days before arrival the left foot became red, swollen and began to drain. His PCP ordered an Xray showing
changes of possible osteomyelitis. He was started on vancomycin and zosyn empirically. MRI was done showing osteomyelitis of the 4thmetatarsal head of the left foot and proximal phalanx to the fourth digit, he underwent partial fourth ray
amputation and 5th metatarsal head resection. There was concern from Dr Cabrera, podiatry, that the 5th toe I&D site might not have a surgical cure. Pathology 09/21 L fourth met - clean margin negative for osteomyelitis. 09/18 bone tissue culture:
MSSA and MSSE of the He was seen in follow up with Dr Lancaster (ID) and noted to have developed an TRISTEN on CKD, cefepime dose was adjusted but follow up labs showed development of new neutropenia. Then last night he developed shortness of breath and
hypoxemia at lab. Pulse ox was 78 and he was referred to the ER. Note that keena has been mostly immobile since the surgery with low PO intake. No fevers, chills, calf swelling, chest pain, cough. He was brought to the ER where he has been
saturating 100% on 2L, US of the lower extremities no DVT, he did have afib. VQ scan and echo are planned. Cefepime was initially continued then stopped. ID is consulted for assistance with management.
Past History
Additional Past Medical History:
Hypercholesterolemia and Renal Failure (CKD stage III, baseline creatinine 1.7)
Additional Past Surgical History:
as per hpi
Allergy History:
No Known Allergies Allergy (Verified 10/15/24 17:30)
Medications Reviewed: Yes
Social History
Tobacco: Non-Smoker
Alcohol: Daily (1-2 drinks daily)
Drug: None
Personal:
Family History
Family History: Other (Father: Skin cancer Sister: Pulmonary Fibrosis)
Review of Systems
Review of Systems
General: Negative Fever or Chills
All systems: All other systems were reviewed and were negative
Vital Signs
Temp Pulse Resp BP Pulse Ox
97.6 F 74 18 93/57 100
10/16/24 07:27 10/16/24 07:27 10/16/24 07:27 10/16/24 07:27 10/16/24 07:27
Physical Exam
Physical Exam
Constitutional: No Acute Distress and Cachetic
Eyes: Other (sunken eyes)
Cardiovascular: Regular Rate and S1/S2; Negative Murmur or Rub
Pulmonary: Clear and Symmetric; Negative Wheezes, Rales or Rhonchi
Gastrointestinal: Soft, Non Tender, Non Distended and Normal Bowel Sounds
Extremities: Other (wasting of the hand muscles)
Skin: Warm and Dry; Negative Rash or Jaundice
Wound: Other (surgical site healing well, no drainage, no erythema, no warmth, no tenderness)
Lab / Diagnostic Study Results
10/15/24 18:12
10/16/24 02:43
PT 17.3 Sec (11.4-14.6) H 10/15/24 18:12
INR 1.36 10/15/24 18:12
Urine WBC 0-2 /HPF (0-5) 10/15/24 23:01
Ur Squamous Epith Cells 0-2 /LPF (Few) 10/15/24 23:01
Microbiology Results
Micro:
10/16/24 02:58 MRSA Screen - Pending
Nose
Tissue Culture Final 09/21/24-1201
Rare S aureus-Methicillin Sensitive
Rare Staphylococcus epidermidis
CRITICAL VALUE called to and read back verification by
[email or web address] on 09/20/24 at 0952 by CARMELLA. COPY PRINTED to
printer #[id number].
Organism 1 S aureus-Methicillin Sensitive
Organism 2 Staphylococcus epidermidis
MSSA S.EPID
M.I.C. RX M.I.C. RX
--------- --- --------- ---
Amoxicillin/Potas. Clavulanate <=4/2 S <=4/2 S
Ampicillin <=2 R <=2 R
Clindamycin <=0.5 S <=0.5 S
Gentamicin <=4 S <=4 S
Erythromycin <=0.5 S >4 R
Levofloxacin <=1 S <=1 S
Oxacillin 0.5 S <=0.25 S
Tetracycline 8 I <=4 S
Trimethoprim/Sulfamethoxazole <=0.5/9.5 S >38 R
Vancomycin 1 S 2 S
Assessment / Plan
# Osteomyelitis of left 4th toe, metatarsal head and medial 5th met head
# TRISTEN on CKD; suspect prerenal, AIN less likely without eosinophilia or eosinophiluria
# Leukopenia
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
- OR bone cx: MSSA, MSSE; path 4th digit margin: negative for osteomyelitis; no comments on the 5th met
- Superficial Wound swab Pseudomonas, Staph aureus (MSSA), Group B strep
- cbc with diff in the AM
- Per Dr. Yun, he is concerned about the 5th met head with residual osteo.
- switch cefepime to cefazolin 1 gm IV q12 through 10/28/24 - may require dose adjustments in the near future as TRISTEN resolves
- Picc in place
- disposition: possible discharge saturday at the earliest
# Cachexia - BMI 17.8 last month now 15.8
- recruiter coordinator to see patient for severe cachexia, would also like patient to follow up with PCP re: routine cancer screenings shortly after discharge
- encouraged patient to try to eat and drink what he can
Care Review
Plan reviewed with: Physician (Dr Lancaster - sign out of outpatient events)
--- NOTE | 2024-10-16 10:50 | WOUNDNOTE ---
L MID DORSAL FOOT
--- NOTE | 2024-10-16 10:55 | WOUNDNOTE ---
[facility] RN note: Patient admitted with hypoxia.
See H&P for complete history. lives with .
PMH: Past Medical History: Reports Hypercholesterolemia and Renal Failure (CKD stage III, baseline creatinine 1.7)
Additional Past Medical History: Osteomyelitis
Wound Location and type/assessment: Patient admitted with: healed L foot surgical site, no drainage on dressing. + palpable pedal pulses, heels intact. Patient reports Dr. Rodriguez did amputation of toe and will follow up with him in 2 wks. Reviewed
current wound care and offloading shoe with patient and over the phone. Using Silvadene to suture line and dry dressing being changed q 2 days. 1/2 Darco shoe at bedside. L posterior ear with atypical open ulcer, base red and friable. Medially
to ulcer is patch of brown dry skin. Patient reports he does not know how he got this but plans to follow up with a facility maintenance helper. Patient also has scabs on L Nare, unsure how obtained. Using oxygen via NC, does not use oxygen at home. L garcia
abrasion from recent fall. Ultrasound negative for DVT. Patient turned onto side, sacrum is intact, barrier cream in use to buttocks. Mid L back with 2 dry abrasions also from recent fall. Dr Chang at bedside and assessed all wounds, approved local
wound care.
Appetite: Poor, patient has lost weight last few months, dietary on consult.
Pressure redistribution devices in place: On [facility] care air bed, turns self. Patient has 1/2 Darco shoe at bedside for ambulating. Pressure ulcer prevention measures reviewed with patient, states he understands.
Plan: Dry dressing applied to L foot surgical site. Ordered Silvadene for suture line, nurse Estephanie aware and will apply when arrives. Dressings changed on sacrum and L ear. Using soft oxygen NC tubing, can add baker foam pads prn rubbing. Will update
care plan and follow as needed.
Note to case management of equipment requested for discharge: VN if can't do.
Recommend follow up with Dr. Rodriguez as scheduled and follow up with a facility maintenance helper for L ear ulcer.
--- NOTE | 2024-10-16 11:05 | CON.CAR ---
Addendum entered and electronically signed by Roger Alberto MD 10/16/24 15:50:
I saw and examined the patient.
The Mushroom Sorter Grader's note was reviewed and I agree with the note.
Comment: Briefly, 69-year-old man past medical history of hypertension and CKD who was recently admitted for osteomyelitis of the left foot and discharged on IV antibiotics. Presented to [facility] emergency department yesterday with dyspnea and
was found to be hypoxic. Initial ECG showed typical atrial flutter which is a new diagnosis for him.
Metoprolol for rate control of atrial flutter, goal heart rate less than 110 bpm
IV heparin for cardioembolic prophylaxis with plan to transition to [facility] prior to discharge
Tentatively plan for cardioversion as an outpatient if he remains in atrial flutter
Echo here with normal LV function and no high-grade valve disease
Rest per Debbie Gil
Original Note:
Consultation
Consultation Request
Date/Time Consultation Performed: 10/16/24
Requesting Provider: Dr. Almaguer
Performing Provider: Debbie Gil PA-C for Dr. Alberto
Reason for Consultation: aflutter
Medical History
-
Chief Complaint: SOB, dizziness
History of Present Illness:
Patient is a 69 yo M with PMH of HLD, HTN, CKD stage 3B, with admission to [facility] 08/2024 for acute L fourth MT head osteomyelitis s/p partial fourth ray amputation and fifth metatarsal head resection on the left foot and has been maintained on home
infusion of cefepime scheduled through 10/28. He states he was told to stay off his foot so he has been essentially chair bound for the last 3 weeks. He reports he has had poor appetite with the abx and has lost 15 pounds since his admission. He
reports noting dizziness particularly worse first thing in the morning then seemingly improved as he ambulates. He has also noted JUDGE. He reports they have been getting progressively worse. He was referred to ER by his PCP for evaluation as concern
for PE with recent surgery and sedentary nature. He is for VQ scan and echo today. Cardiology consulted as noted to be in aflutter by EKG. Patient asymptomatic. Denies cardiac history, specifically history of arrhythmia to his knowledge. Currently
on IV heparin.
PMH:
acute L fourth MT head osteomyelitis s/p partial fourth ray amputation and fifth metatarsal head resection on the left foot during admission 08/2024
HTN
HLD
CKD stage 3B
Past Medical History
Past Medical History: Other (in HPI)
Social History
Tobacco: Non-Smoker
Alcohol: Occasional
Personal:
Living: With Family
Employment: Employed
Family History
Family History: Reviewed & Not Pertinent
Allergies / Home Medications
Allergy/AdvReac Type Severity Reaction Status Date / Time
No Known Allergies Allergy Verified 10/15/24 17:30
�Medication �Instructions �Recorded �Confirmed �Type
rosuvastatin 5 mg tablet 5 mg PO DAILY High Cholesterol 09/16/24 10/15/24 History
cefepime 2 gram solution for 2,000 mg IV DAILY Infection 10/15/24 10/15/24 History
injection
Review of Systems
-
History Source: Patient
All other systems: Negative unless noted
Physical Exam
Vital Signs
Temp Pulse Resp BP Pulse Ox
97.6 F 74 18 93/57 100
10/16/24 07:27 10/16/24 07:27 10/16/24 07:27 10/16/24 07:27 10/16/24 07:27
Lab Results
10/15/24 18:12
10/16/24 02:43
Troponin I 0.118 ng/ml H* D 10/16/24 09:59
Bil-N-Lqfqapruwbs Pept 1500 pg/ml 10/15/24 18:12
Physical Exam
General: No Apparent Distress, Comfortable and Other (cachectic)
HEENT: Normocephalic, Anicteric and Moist Mucous Membranes
Respiratory: Clear and Non Labored Respirations
Cardiac: S1/S2 and Irregular Rhythm
GI: Soft, Non Tender, Non Distended and Normal Bowel Sounds
Musculoskeletal: No Clubbing, No Cyanosis and No Edema
Skin: Warm, Dry and Other (dressing to L foot c/d/i)
Neuro: AO x 3
Impression / Plan
-
Primary Layaway Clerk: none prior to admission
Assessment:
Presentation with dizziness, SOB
Acute hypoxia
Concern for PE
Atrial flutter, new diagnosis of unclear duration
TRISTEN
Elevated troponin
acute L fourth MT head osteomyelitis s/p partial fourth ray amputation and fifth metatarsal head resection on the left foot during admission 08/2024
HTN
HLD
CKD stage 3B
Weight loss
Deconditioning
ECHO 10/16/24: EF 55-60%, aortic sclerosis
Plan:
-Patient with recent admission to [facility] 08/2024 for L foot osteomyelitis s/p toe amp/resection now presents back to hospital due to dizziness, SOB, and hypoxia. Concern for PE given recent sedentary nature.
-for VQ scan today. periph US negative for DVT.
-echo pending
-remains in aflutter with adequate rate control. will add low dose lopressor 12.5mg BID.
-continue IV heparin. eventual transition to DOAC. hgb 10.1
-TSH WNL
-receiving sodium bicarb
-follow Cr, 2.7 on 10/16, baseline appears closer to 1.8. for renal US today
-trop uptrending, trend to peak. no CP. consider eventual ischemic evaluation, likely as OP
-check CVE
-follow weight, with recent weight loss. for OP surveillance colonoscopy through PCP.
-could consider for OP CV if remains in aflutter
-d/w hospitalist via TT
Data Reviewed
-
EKG: Tracing Personally Visualized and interpreted
Ultrasound: Report Reviewed by me
Medical Tests (Nuc Med, Echo etc): Report Reviewed by me
Labs: Labs Reviewed by me
Old Records: Reviewed
[2024-10-16 11:07] VITALS: BP 117/63
[2024-10-16 12:15] LABS: APTT 94.8 Sec (23.4-35.0)
[2024-10-16] MEDS: COLACE PO (12:27)
[2024-10-16] MEDS: SILVADENE 1 APPLIC TOPICAL (12:28)
[2024-10-16] MEDS: ANCEF 5 IV ×2 (12:30→20:59)
[2024-10-16] MEDS: CRESTOR 5 MG PO (12:31)
[2024-10-16] MEDS: SODIUM BICARBONATE 1300 MG PO ×3 (12:31→21:01)
[2024-10-16] MEDS: KCL 40 MEQ PO (12:31)
--- NOTE | 2024-10-16 12:39 | W.PN.HOSP.TC ---
Today's Communication/Plan
-
monitor vitals
see plan
Monitor renal function closely
Bicarb
Echo
VQ scan
replete K
renal US
Assessment / Plan
Assessment / Plan
General: Other (69y M in no acute distress.)
HEENT: Moist mucous membranes
Respiratory: Clear; No Wheezes, Rales or Rhonchi
Cardiac: S1/S2 and Irregular Rhythm; No Murmur
GI: Soft, Non Tender, Non Distended and Normal Bowel Sounds
Musculoskeletal: no edema
Neuro: AO x 3 and Nonfocal/grossly intact
Psych: Calm
Acute hypoxic respiratory insufficiency
Could be secondary to suspected pulmonary embolism, new onset atrial fibrillation/atrial flutter, CHF
Echo with preserved EF
Cardiology consulted
Continue with IV heparin at this time
VQ scan pending
Wean oxygen as tolerated
Atrial flutter/fibrillation -new onset atrial fibrillation, no symptoms of palpitations chest pain but did complain of episodes of dizziness and lightheadedness. Currently rate controlled off any medications
- Monitor on telemetry
- DC'd amlodipine, as needed metoprolol for now
- Continue heparin anticoagulation as above for possible PE
TSH wnl
- Cardiology consultation
Hypokalemia
Replete
ELevtaed trop; likely non ischemic myocardial injury
Trend
TRISTEN -BUN to creatinine ratio greater than 28, suspect prerenal azotemia. H/O low appetite, reduced po and weight loss. However cannot rule out or intrarenal process such as interstitial nephritis, tubular necrosis secondary to infection
Cannot rule out underlying CKD, creatinine on 09/21 was 1.7
Hold further fluids
Sodium bicarb
Nephrology evaluation
Urine eos negative
Metabolic acidosis
check renal US
History of recent osteomyelitis
Discontinue further cefepime
ID following, now started on Ancef
leukopenia - Subacute since discharge. Given general decline suspect due to marrow suppression
monitor
Anemia; suspect anemia of chronic disease
Weightloss -
- recommend age appropriate cancer screening -> outpatient colonoscopy
DVT PPX - on heparin s/q
Code status - Full code
I spent a total of 52 minutes with the patient or on the floor. More than 50% of this time involved counseling and coordination of care.
Anticipated Discharge: > 48 hours
Subjective/Interval History
-
Date of Service: October 16, 2024
denies nausea
Objective Data
-
Labs:
Laboratory Results
10/16/24 10/16/24
02:43 11:54
APTT > 200 H* 94.8 H
Sodium 140
Potassium 3.4 L
Chloride 114 H
Carbon Dioxide 15 L
BUN 73 H
Creatinine 2.7 H
Glucose 92
Calcium 8.8
Vital Signs:
Vital Signs
Temp Pulse Resp BP Pulse Ox
97.9 F 76 18 117/63 97
10/16/24 11:07 10/16/24 11:07 10/16/24 11:07 10/16/24 11:07 10/16/24 11:07
I&O
10/15/24 10/16/24 10/17/24
06:59 06:59 06:59
Intake Total 1815 / 1815
Output Total 1200 / 1200
Balance 615 / 615
[2024-10-16 12:50] VITALS: BMI 15.8
[2024-10-16 15:37] LABS: Creatine Phosphokinase 117 U/L (55-170)
[2024-10-16 15:45] VITALS: BP 107/59
[2024-10-16 15:50] LABS: Troponin I 0.087 ng/ml
[2024-10-16] MEDS: SODIUM BICARBONATE 1075 MEQ IV (16:43)
--- NOTE | 2024-10-16 16:50 | RESPNOTE ---
patient was 100% hr was 110 on room air. Patient was dizzy when he first got up and needed to sit down. He was able to walk with walker for about 2 minutes with saturation=95% . His heart rate increased to 140s while walking during 2 to 4 minute
veto of walk, his saturation was 92 to 94 % , he was placed on 2 liters for 5 minute veto of walk,; we returned to room because of high heart rate, Patient returned to room and recovered to 100% on room air at rest.
--- NOTE | 2024-10-16 17:19 | CM ---
Met with patient to obtain information for assessment. Patient stated that he lives with his and adult son in a two story home with ramp access. He described himself as assist of 1 () for all ADLs, personal care, bathing and dressing. His
does all of the medical director/head team physician, cooking, cleaning and laundry. She drives patient and takes him to his appointments and takes him shopping. He has a cane, walker, w/c and a shower chair. He has had VN in the past. He has not been to a SNF.
Patient has a prescription plan and uses, [facility] in [facility] for all of his medications.
His PCP is, Dwight Augustin.
Plan: Case management will continue to follow and assist with discharge planning. Will watch for needs.
[2024-10-16 19:25] VITALS: BP 118/52
[2024-10-16] MEDS: LOPRESSOR 12.5 MG PO (21:00)
[2024-10-16] MEDS: COLACE 100 MG PO (21:00)
[2024-10-16 23:57] VITALS: BP 96/47
[2024-10-17] VITALS (8 sets, daily range): BP systolic 91–110; BP diastolic 43–72; PULSE 78; O2SAT 96
[2024-10-17] MEDS: HEPARIN 25000 UNITS/250 ML IV (04:00)
[2024-10-17 06:25] LABS: Hematocrit 25.9 % (39.0-52.0); Hemoglobin 9.1 g/dL (13.0-18.0); Mean Corp Hgb Conc. 35.1 g/dL (33.0-37.0); Mean Corpuscular Hgb 34.3 pg (27.0-31.0); Mean Corpuscular Volume 97.7 fL (80.0-94.0); Mean Platelet Volume 10.8 fL (7.4-10.4); Platelet Count 108 10^3/uL (130-400); Red Blood Cell Count 2.65 10^6/uL (4.70-6.10); Red Cell Dist. Width 11.6 % (11.5-14.5); White Blood Cell Count 4.3 10^3/uL (4.8-10.8)
[2024-10-17 06:32] LABS: APTT 102.5 Sec (23.4-35.0)
--- NOTE | 2024-10-17 06:34 | PTCARENOTE ---
Critical value for absolute neutrophil 0.9 reported. No resulted under results yet. Notified EDUCATIONAL ADMINISTRATION TEACHER Socorro. Aware, no new orders.
[2024-10-17 07:38] LABS: Band Neutrophils 0 % (0-3); Eosinophils 24 % (0-6); Lymphocytes 34 % (20-51); Monocytes 18 % (2-9); Segmented Neutrophils 22 % (42-75)
[2024-10-17 07:39] LABS: Normal RBC Morphology Yes; Platelets Checked Yes; Total Cells Counted 100
[2024-10-17 07:41] LABS: Absolute Neutrophils -Man Diff 0.9 10^3/uL (1.4-6.5)
[2024-10-17 08:01] LABS: ALT (SGPT) 22 U/L (0-50); AST (SGOT) 37 U/L (17-59); Albumin 3.2 g/dl (3.5-5.0); Alkaline Phosphatase 107 U/L (38-126); Blood Urea Nitrogen 62 mg/dl (9-20); Calcium 8.5 mg/dl (8.4-10.2); Carbon Dioxide 22 mmol/L (22-30); Chloride 113 mmol/L (98-107); Estimated Creatinine Clearance 21 ml/min; Glucose 96 mg/dl (70-99); Potassium 3.8 mmol/L (3.5-5.1); Sodium 140 mmol/L (135-145); Total Bilirubin 0.6 mg/dl (0.2-1.3); Total Protein 6.6 g/dl (6.3-8.2); eGFR 25.72
[2024-10-17 09:16] LABS: Erythrocyte Sed Rate 78 mm/hour (0-20)
[2024-10-17] MEDS: ANCEF 5 IV ×2 (09:41→20:21)
[2024-10-17] MEDS: CRESTOR 5 MG PO (09:42)
[2024-10-17] MEDS: COLACE 100 MG PO ×2 (09:42→20:22)
[2024-10-17] MEDS: LOPRESSOR PO (09:42)
[2024-10-17] MEDS: SODIUM BICARBONATE 1300 MG PO (09:43)
[2024-10-17] MEDS: SILVADENE 1 APPLIC TOPICAL (09:44)
--- NOTE | 2024-10-17 10:18 | W.PN.ID1 ---
Date of Service
Date of Service: October 17, 2024
Today's Communication
- large PVR >500 on renal US - getting routine bladder scans
- follow renal function, dose adjust cefazolin PRN
Assessment / Plan
# Osteomyelitis of left 4th toe, metatarsal head and medial 5th met head
# TRISTEN on CKD; suspect prerenal, AIN less likely without eosinophilia or eosinophiluria
# Leukopenia - improved; Neutropenia - improved but not resolved
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
- OR bone cx: MSSA, MSSE; path 4th digit margin: negative for osteomyelitis; no comments on the 5th met
- Superficial Wound swab Pseudomonas, Staph aureus (MSSA), Group B strep
- cbc with diff in the AM
- Per Dr. Yun, he is concerned about the 5th met head with residual osteo.
- switch cefepime to cefazolin 1 gm IV q12 through 10/28/24 - may require dose adjustments in the near future as RTISTEN resolves
- Picc in place
- disposition: possible discharge saturday at the earliest
# TRISTEN on CKD
- large PVR >500 on renal US - getting routine bladder scans
- had large BM which may also assist with voiding
# Cachexia - BMI 17.8 last month now 15.8
- appreciate quarry worker inut, would also like patient to follow up with PCP re: routine cancer screenings shortly after discharge
- encouraged patient to try to eat and drink what he can 10/16
Chief Complaint
-: Other (osteomyelitis, adverse drug reaction)
Subjective / Review of Systems
afebrile
bp mildly hypotensive this am
ate more of his breakfast today than yesterday - full bowel of cereal - working on fruit
no new complaints
Vital Signs / Physical Exam
Vital Signs
Vital Signs
Temp Pulse Resp BP Pulse Ox
97.7 F 72 20 91/50 99
10/17/24 07:30 10/17/24 09:42 10/17/24 07:30 10/17/24 09:42 10/17/24 07:30
Physical Exam
Constitutional: No Acute Distress
Cardiovascular: Regular Rate and S1/S2; Negative Murmur or Rub
Pulmonary: Clear and Symmetric; Negative Wheezes or Rales
Gastrointestinal: Soft, Non Tender, Non Distended and Normal Bowel Sounds
Skin: Warm and Dry; Negative Rash or Jaundice
Objective Data
Lab Data
Lab Results
10/17/24 06:04
10/17/24 06:04
ESR 78 mm/hour (0-20) H 10/17/24 06:04
PT 17.3 Sec (11.4-14.6) H 10/15/24 18:12
INR 1.36 10/15/24 18:12
APTT 102.5 Sec (23.4-35.0) H 10/17/24 06:04
Estimated Creat Clear 21 ml/min 10/17/24 06:04
Total Bilirubin 0.6 mg/dl (0.2-1.3) 10/17/24 06:04
AST 37 U/L (17-59) 10/17/24 06:04
ALT 22 U/L (0-50) 10/17/24 06:04
Alkaline Phosphatase 107 U/L (38-126) 10/17/24 06:04
C-Reactive Protein 48.80 mg/L (0.0-10.00) H 10/17/24 06:04
Most recent labs reviewed.
Micro Results:
10/16/24 02:58 MRSA Screen - Final
Nose No Methicillin Resistant Staphylococcus aureus isolated.
--- NOTE | 2024-10-17 10:38 | W.PN.CARDCBS ---
Today's Communication / Plan
-
Cont Metoprolol 12.5 mg BID for rate control of atrial flutter. BP remains on the low side.
Cont IV heparin for cardioembolic prophylaxis with plan to transition to Eliquis prior to discharge
Tentatively plan for cardioversion as an outpatient if he remains in atrial flutter
TSH normal
Echo with normal LV function and no high-grade valve disease
Outpt ischemic eval for nonMI troponin, peak 0.1.
VQ scan low prob PE. periph US negative for DVT.
Wt coming down and cr improving without diuresis. EF is preserved.
Impression / Plan
-
.
Primary Java Spring Developer: none prior to admission
Impression:
Presentation with dizziness, SOB
Acute hypoxia, neg w/u PE
Atrial flutter, new diagnosis of unclear duration
TRISTEN
Elevated troponin, med tx nonMI trop peak 0.1
Osteomyelitis
Acute L fourth MT head osteomyelitis s/p partial fourth ray amputation and fifth metatarsal head resection on the left foot during admission 08/2024
HTN
HLD
CKD stage 3B
Weight loss
Deconditioning
ECHO 10/16/24: EF 55-60%, aortic sclerosis
Plan:
-Patient with recent admission to [facility] 08/2024 for L foot osteomyelitis s/p Partial fourth ray amputation, and partial fifth metatarsal head resection now presents back to hospital due to dizziness, SOB, and hypoxia. Concern for PE given recent
sedentary nature.
Cont Metoprolol 12.5 mg BID for rate control of atrial flutter. BP remains on the low side.
Cont IV heparin for cardioembolic prophylaxis with plan to transition to Eliquis prior to discharge
Tentatively plan for cardioversion as an outpatient if he remains in atrial flutter
TSH normal
Echo with normal LV function and no high-grade valve disease
Outpt ischemic eval for nonMI troponin, peak 0.1.
VQ scan low prob PE. periph US negative for DVT.
Wt coming down and cr improving without diuresis. EF is preserved.
TSH WNL
Renal following and received bicarb. Cr 2.6, cr baseline may be closer 1.8.
Wt loss eval as per primary service and PCP
Progress Note - Java Spring Developer
Subjective
Date of Service: October 17, 2024
pt seen and examined. No cp. Breathing better
Objective
Labs:
10/17/24 06:04
10/17/24 06:04
Labs
Hgb 9.1 g/dL (13.0-18.0) L 10/17/24 06:04
Hct 25.9 % (39.0-52.0) L 10/17/24 06:04
Plt Count 108 10^3/uL (130-400) L 10/17/24 06:04
PT 17.3 Sec (11.4-14.6) H 10/15/24 18:12
INR 1.36 10/15/24 18:12
APTT 102.5 Sec (23.4-35.0) H 10/17/24 06:04
Sodium 140 mmol/L (135-145) 10/17/24 06:04
Potassium 3.8 mmol/L (3.5-5.1) 10/17/24 06:04
BUN 62 mg/dl (9-20) H 10/17/24 06:04
Creatinine 2.6 mg/dL (0.7-1.3) H 10/17/24 06:04
Glucose 96 mg/dl (70-99) 10/17/24 06:04
Troponins
10/15/24 10/16/24 10/16/24
18:12 02:44 09:59
Troponin I 0.017 0.084 H* 0.118 H* D
10/16/24
15:16
Troponin I 0.087 H* D
Vital Signs and I&O:
Vital Signs
Temp Pulse Resp BP Pulse Ox
97.7 F 72 20 91/50 99
10/17/24 07:30 10/17/24 09:42 10/17/24 07:30 10/17/24 09:42 10/17/24 07:30
Vital Signs
Temp Pulse Resp BP Pulse Ox
97.7 F 72 20 91/50 99
10/17/24 07:30 10/17/24 09:42 10/17/24 07:30 10/17/24 09:42 10/17/24 07:30
Intake & Output
10/15/24 10/16/24 10/17/24 10/18/24
06:59 06:59 06:59 06:59
Intake Total 1815 / 1815 1080 / 1080
Output Total 1200 / 1200 1050 / 1050
Balance 615 / 615 30 / 30
Physical Exam
Physical Exam
General: No acute distress, AAOX3
Neck: Negative JVD
Heart: Irregularly irregular, Negative S3 positive S1/S2, Negative S4, No murmur
Lungs: CTA b/l, negative wheezes/rales/rhonchi
Abd: Positive BS, NT/ND, neg rebound/rigidity/guarding
Ext: Negative cyanosis/clubbing/edema. dressing left LE c/d/i
Neuro: nonfocal
--- NOTE | 2024-10-17 10:56 | W.PN.NEPH.PH ---
Today's Communication / Plan
-
see plan
Assessment/Plan
-
IMP:
TRISTEN with CKD3b 1.7-2, lost f/u with Dr Webster in 2019
Acute hypoxic respiratory insufficiency-concern of PE
new onset atrial fibrillation/atrial flutter
Hypokalemia
ELevtaed trop; likely non ischemic myocardial injury
Non gap Metabolic acidosis
History of recent osteomyelitis
leukopenia
Anemia
Weightloss
Plan:
A/w sob, concern of PE, noted Atrial arrhythmia
TRISTEN-UA with 4+bld but microhematuria 3-6 rbc, ck-normal
U PCR at 2.3gm/gm of cr, previous serologies neg in 2019([facility])
can update serologies, neg U eoisinophils but eosinophilia noted, AIN in differential
Fena is low 0.8 suggest this is prerenal too-cr slightly bettr 2.6 s/p of 1lit of bicarb IVF
monitor UOP, renal US and CT shows can not r/o obstructive uropathy on left, pvr 581cc too on US
bladder scan at bedside 62cc, start flomax, refusing ball-he will need to see eventually
avoid nephrotoxins, off cefepime
met acidosis-better, non gap, cont po bicarb
Bp soft, echo opal EF,
likely he is euvolemic , holding diuresis. BNP on admit high but in setting of TRISTEN
d/w pt in detail
-
-
Date of Service: October 17, 2024
CC / HPI / ROS
-
Chief Complaint:
TRISTEN with ckd
History of Present Illness:
cr better at 2.6, non oliguric
BP soft, on BB
met acidosis better 22
leucopenia improving
Review of Systems:
no cp or sob
constipation better
no bd pain
appetite improving
Labs
-
Labs:
WBC 4.3 10^3/uL (4.8-10.8) L 10/17/24 06:04
RBC 2.65 10^6/uL (4.70-6.10) L 10/17/24 06:04
Hgb 9.1 g/dL (13.0-18.0) L 10/17/24 06:04
Hct 25.9 % (39.0-52.0) L 10/17/24 06:04
Plt Count 108 10^3/uL (130-400) L 10/17/24 06:04
Sodium 140 mmol/L (135-145) 10/17/24 06:04
Potassium 3.8 mmol/L (3.5-5.1) 10/17/24 06:04
Chloride 113 mmol/L (98-107) H 10/17/24 06:04
Carbon Dioxide 22 mmol/L (22-30) 10/17/24 06:04
BUN 62 mg/dl (9-20) H 10/17/24 06:04
Creatinine 2.6 mg/dL (0.7-1.3) H 10/17/24 06:04
eGFR 25.72 10/17/24 06:04
Glucose 96 mg/dl (70-99) 10/17/24 06:04
Calcium 8.5 mg/dl (8.4-10.2) 10/17/24 06:04
Zxs-H-Gkfyxqsbpct Pept 1500 pg/ml 10/15/24 18:12
Albumin 3.2 g/dl (3.5-5.0) L 10/17/24 06:04
Physical Exam
-
Vital Signs:
Vital Signs
Temp Pulse Resp BP Pulse Ox
97.7 F 72 20 91/50 99
10/17/24 07:30 10/17/24 09:42 10/17/24 07:30 10/17/24 09:42 10/17/24 07:30
Cardiovascular:: Regular rate and rhythm
Respiratory:: Bilateral: CTA
Lung Excursion:: Normal
Abdomen:: Nontender and Soft
Extremity Edema:: None: Bilateral:
Ball Catheter: No
--- NOTE | 2024-10-17 11:14 | W.PN.HOSP.TC ---
Today's Communication/Plan
-
monitor vitals
see plan
refusing ball; start flomax
bladder scan
cw metoprolol
monitor renal function
monitor leukopenia
Assessment / Plan
Assessment / Plan
General: Other (69y M in no acute distress.)
HEENT: Moist mucous membranes
Respiratory: Clear; No Wheezes, Rales or Rhonchi
Cardiac: S1/S2 and Irregular Rhythm; No Murmur
GI: Soft, Non Tender, Non Distended and Normal Bowel Sounds
Musculoskeletal: no edema
Neuro: AO x 3 and Nonfocal/grossly intact
Psych: Calm
Acute hypoxic respiratory insufficiency
likely 2/2 new onset atrial fibrillation/atrial flutter
Echo with preserved EF
Cardiology following
Continue with IV heparin at this time; eventual transition to eliquis
VQ scan with low prob of PE; venous doppler neg
Wean oxygen as tolerated
Atrial flutter/fibrillation -new onset atrial fibrillation, no symptoms of palpitations chest pain but did complain of episodes of dizziness and lightheadedness. Currently rate controlled off any medications
- Monitor on telemetry
- DC'd amlodipine, as needed metoprolol for now
- Continue heparin
TSH wnl
- Cardiology following
Hypokalemia
Replete
Elevated trop; likely non ischemic myocardial injury
Trend
TRISTEN -BUN to creatinine ratio greater than 28, suspect prerenal azotemia. H/O low appetite, reduced po and weight loss. However cannot rule out or intrarenal process such as interstitial nephritis, tubular necrosis secondary to infection
Cannot rule out underlying CKD, creatinine on 09/21 was 1.7
Hold further fluids
Sodium bicarb
Nephrology following; studies pending
Urine eos negative
Metabolic acidosis improving
Renal ultrasound with obstructive uropathy, patient refusing Ball. Started Flomax
History of recent osteomyelitis
Discontinue further cefepime
ID following, now started on Ancef
leukopenia - Subacute since discharge. Given general decline suspect due to marrow suppression
monitor; ANC 900. If continues to get worse then will need hematology evaluation
Thrombocytopenia
Monitor
Anemia; suspect anemia of chronic disease
Weightloss and loss of apatite
- recommend age appropriate cancer screening -> outpatient colonoscopy. Per patient his Cologuard test was positive however he never followed up
CTCAP without contrast not optimal study; appears obstructive uropathy
Patient refusing Ball catheter, started Flomax
DVT PPX - on heparin
Code status - Full code
I spent a total of 53 minutes with the patient or on the floor. More than 50% of this time involved counseling and coordination of care.
Anticipated Discharge: > 48 hours
Subjective/Interval History
-
Date of Service: October 17, 2024
denies pain
Objective Data
-
Labs:
Laboratory Results
10/17/24
06:04
WBC 4.3 L
Hgb 9.1 L
Hct 25.9 L
Plt Count 108 L
APTT 102.5 H
Sodium 140
Potassium 3.8
Chloride 113 H
Carbon Dioxide 22
BUN 62 H
Creatinine 2.6 H
Glucose 96
Calcium 8.5
Total Bilirubin 0.6
AST 37
ALT 22
Alkaline Phosphatase 107
Vital Signs:
Vital Signs
Temp Pulse Resp BP Pulse Ox
97.7 F 72 20 91/50 99
10/17/24 07:30 10/17/24 09:42 10/17/24 07:30 10/17/24 09:42 10/17/24 07:30
I&O
10/16/24 10/17/24 10/18/24
06:59 06:59 06:59
Intake Total 1815 / 1815 1080 / 1080
Output Total 1200 / 1200 1050 / 1050
Balance 615 / 615
[2024-10-17] MEDS: FLOMAX 0.4 MG PO (14:10)
--- NOTE | 2024-10-17 15:44 | W.PN.PUL3 ---
Today's Communication / Plan
-
- Outpatient follow-up with pulmonary clinic
- Pulmonary function testing with DLCO assessment as outpatient, if abnormal, will proceed with echocardiogram with bubble study
- Pulmonary service will sign off, please call as needed.
Assessment
-
Patient is a 69-year-old male with past medical history of hyperlipidemia and CKD, recent diagnosis of left foot osteomyelitis on chronic antibiotics since August presenting to the emergency department with episode of shortness of breath and hypoxia.
He was ambulating into local [facility] for bloodwork and had noticeable JUDGE, pulse ox checked and was found to be hypoxic in the 70s. He notes that since being bedrest from his foot infection, he had not been very active and notes weakness, dizziness
and SOB with little exertion such as standing, and ambulating to the bathroom.
In ER he was confirmed to be hypoxic at 80% on room air. He is placed on 2 L. We are consulted for evaluation.
Acute hypoxic respiratory failure
Leukopenia
Anemia, unclear cause
TRISTEN on CKD, peak 2.87, BL 1.7
Metabolic acidosis
Mild pectus excavatum deformity on CXR
Severe protein calorie malnutrition, unintentional weight loss
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
Chronic kidney disease stage 3, GFR 30-59 ml/min
Essential hypertension
Hyperlipidemia
Acute osteomyelitis of left ankle, recent admission
Cellulitis of foot without toes, left
Underweight, BMI 15.8
Assessment and plan
#1. Hypoxemia on arrival, since resolved.
- Patient saturating 96% on room air. No cough, wheezing or expectoration. No hemoptysis
- CT chest essentially unremarkable. Echocardiogram without any pulmonary hypertension
- No indication for any inhaler therapy or steroids from pulmonary perspective
- Will proceed with formal pulmonary function testing including DLCO assessment as outpatient. If noted to be low, patient will need echocardiogram with bubble study to evaluate for any shunt.
- PE unlikely with a negative lower extremity duplex and negative VQ scan. Patient anyways anticoagulated related to underlying atrial fibrillation
- Pulmonary team will sign off, please call as needed
Diagnostic Data
CXR 10/15/24- Right PICC line with tip in good position, within the SVC. No evidence of active cardiopulmonary disease. Mild pectus excavatum deformity.
09/20/24- 1. Right upper extremity PICC line in place with the catheter tip projecting over the SVC.
2. Mild biapical lung scarring and pleural thickening.
CT
ECHO 10/16/24- Left ventricle is small in size. Normal left ventricular systolic function. Left ventricular ejection fraction is 55-60% by visual estimate. Normal regional wall motion. Normal left ventricular wall thickness. Normal right
ventricular size and function. Aortic sclerosis without stenosis. No prior study for comparison
PFT
Reports and relevant images were personally reviewed.
-----
Total time spent on this consultation _39__ minutes which includes review of history, physical exam, medications, llaboratory data, personal review of imaging, extensive review of outpatient records, and discussions with care team.
Subjective Data
-
Date of Service:
Date of Service: October 17, 2024
Subjective:
Patient comfortably sitting in bed in no acute distress. Saturating well on room air.
Review of Systems
Genitourinary: Other (No new symptoms reported.)
Objective Data
Data Reviewed
Vital Signs / I&O / Oxygen:
Vital Signs
Temp Pulse Resp BP Pulse Ox
97.9 F 82 18 104/50 96
10/17/24 11:56 10/17/24 11:56 10/17/24 11:56 10/17/24 11:56 10/17/24 11:56
Intake and Output
10/16/24 10/17/24 10/18/24
06:59 06:59 06:59
Intake Total 1815 / 1815 1080 / 1080
Output Total 1200 / 1200 1050 / 1050
Balance 615 / 615 30 / 30
SaO2 96
Nasal Cannula flow liters per 2
minute
Physical Exam
General: Comfortable
HEENT: Normocephalic
Cardiovascular: S1-S2
Respiratory: Clear and Non-Labored Respirations
GI: Soft and Non Distended
Neurology: Awake, Alert and Oriented
Skin: Warm
Labs/Micro/Reports
Lab Data
10/17/24 06:04
10/17/24 06:04
Laboratory Results
10/16/24 10/17/24
18:06 06:04
APTT 99.0 H 102.5 H
Microbiology
10/16/24 02:58 Nose MRSA Screen - Final
No Methicillin Resistant Staphylococcus aureus isolated.
[2024-10-17] MEDS: LOPRESSOR 12.5 MG PO (20:22)
--- NOTE | 2024-10-18 03:00 | PTCARENOTE ---
Patient has been in controlled Afib/flutter. Hep gtt running for new arrhythmia. Concern for bradycardia. Administered 12.5 mg lopressor at 2021 but both his BP and HR were stable and WNL. Dayshift held his AM dose for hypotension. Patient would
javier like this Saturday night but is more frequent overnight. HR continues to drop to 37-39 non-sustaining. RN did wake him up once just to make sure he wasn't having any symptoms. Patient was very easy to arouse. Denied feeling dizzy or any other
compliants. 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 Will continue to monitor and notify again if patient sustains in 30s.
[2024-10-18 03:47] VITALS: BP 107/49
[2024-10-18 05:37] LABS: Hemoglobin 8.5 g/dL (13.0-18.0); Mean Corpuscular Hgb 33.7 pg (27.0-31.0); Mean Corpuscular Volume 99.2 fL (80.0-94.0); Mean Platelet Volume 10.6 fL (7.4-10.4); Platelet Count 100 10^3/uL (130-400); Red Blood Cell Count 2.52 10^6/uL (4.70-6.10); Red Cell Dist. Width 11.9 % (11.5-14.5); White Blood Cell Count 4.7 10^3/uL (4.8-10.8)
[2024-10-18 06:19] LABS: ALT (SGPT) 34 U/L (0-50); AST (SGOT) 78 U/L (17-59); Albumin 3.1 g/dl (3.5-5.0); Alkaline Phosphatase 114 U/L (38-126); Blood Urea Nitrogen 57 mg/dl (9-20); Calcium 8.5 mg/dl (8.4-10.2); Carbon Dioxide 25 mmol/L (22-30); Chloride 113 mmol/L (98-107); Estimated Creatinine Clearance 21 ml/min; Glucose 93 mg/dl (70-99); Potassium 3.9 mmol/L (3.5-5.1); Sodium 142 mmol/L (135-145); Total Bilirubin 0.4 mg/dl (0.2-1.3); Total Protein 6.5 g/dl (6.3-8.2); eGFR 25.72
[2024-10-18 07:30] VITALS: BP 123/48
[2024-10-18 09:08] LABS: Absolute Neutrophils -Man Diff 1.5 10^3/uL (1.4-6.5); Band Neutrophils 0 % (0-3); Eosinophils 22 % (0-6); Lymphocytes 30 % (20-51); Monocytes 11 % (2-9); Segmented Neutrophils 34 % (42-75)
[2024-10-18 09:09] LABS: Platelets Checked YES
[2024-10-18 09:11] LABS: Hypochromasia Slight; Normal RBC Morphology No
[2024-10-18 09:12] LABS: Total Cells Counted 100
[2024-10-18] MEDS: COLACE 100 MG PO ×2 (10:43→19:36)
[2024-10-18] MEDS: ANCEF 5 IV ×2 (10:43→19:36)
[2024-10-18] MEDS: LOPRESSOR 12.5 MG PO ×2 (10:45→20:45)
[2024-10-18] MEDS: FLOMAX 0.4 MG PO (10:45)
[2024-10-18] MEDS: CRESTOR 5 MG PO (10:45)
--- NOTE | 2024-10-18 11:03 | W.PN.HOSP.TC ---
Today's Communication/Plan
-
Monitor vital signs see plan
Check heme test stool, if positive then will get GI evaluation
Continue to monitor CBC
cw abx
IV hep
Monitor renal function
Discussed with spouse over the phone
Assessment / Plan
Assessment / Plan
General: Other (69y M in no acute distress.)
HEENT: Moist mucous membranes
Respiratory: Clear; No Wheezes, Rales or Rhonchi
Cardiac: S1/S2 and Irregular Rhythm; No Murmur
GI: Soft, Non Tender, Non Distended and Normal Bowel Sounds
Musculoskeletal: no edema
Neuro: AO x 3 and Nonfocal/grossly intact
Psych: Calm
Acute hypoxic respiratory insufficiency
likely 2/2 new onset atrial fibrillation/atrial flutter
Echo with preserved EF
Cardiology following
Continue with IV heparin at this time; eventual transition to eliquis
VQ scan with low prob of PE; venous doppler neg
Wean oxygen as tolerated
Pulmonary will follow-up patient
Atrial flutter/fibrillation -new onset atrial fibrillation, no symptoms of palpitations chest pain but did complain of episodes of dizziness and lightheadedness. Currently rate controlled off any medications
- Monitor on telemetry
- DC'd amlodipine, as needed metoprolol for now, overnight predominance of stating bradycardia. Monitor
- Continue heparin
TSH wnl
- Cardiology following
Hypokalemia
Replete
Elevated trop; likely non ischemic myocardial injury
TRISTEN -BUN to creatinine ratio greater than 28, suspect prerenal azotemia. H/O low appetite, reduced po and weight loss. However cannot rule out or intrarenal process such as interstitial nephritis, tubular necrosis secondary to infection
Cannot rule out underlying CKD, creatinine on 09/21 was 1.7
Nephrology following; studies pending
Urine eos negative
Metabolic acidosis improving
Renal ultrasound with obstructive uropathy, patient refusing Garcia. Started Flomax
Bladder scan does not appear to have high PVR, monitor
History of recent osteomyelitis
Discontinue further cefepime
ID following, now started on Ancef
leukopenia - Subacute since discharge. Given general decline suspect due to marrow suppression
monitor;. If continues to get worse then will need hematology evaluation
Thrombocytopenia
Monitor
Anemia; suspect anemia of chronic disease
Weight loss and loss of apatite
- recommend age appropriate cancer screening -> outpatient colonoscopy. Per patient his Cologuard test was positive however he never followed up. Is scheduled for colonoscopy in January. Checking hemetest stool and if positive then will get GI
evaluation here as high suspicion for malignancy
CTCAP without contrast not optimal study; appears obstructive uropathy
Patient refusing Garcia catheter, started Flomax
DVT PPX - on heparin
Code status - Full code
I spent a total of 53 minutes with the patient or on the floor. More than 50% of this time involved counseling and coordination of care.
Anticipated Discharge: > 48 hours
Subjective/Interval History
-
Date of Service: October 18, 2024
Denies abdominal pain
Objective Data
-
Labs:
Laboratory Results
10/18/24
05:18
WBC 4.7 L
Hgb 8.5 L
Hct 25.0 L
Plt Count 100 L
APTT 88.0 H
Sodium 142
Potassium 3.9
Chloride 113 H
Carbon Dioxide 25
BUN 57 H
Creatinine 2.6 H
Glucose 93
Calcium 8.5
Total Bilirubin 0.4
AST 78 H
ALT 34
Alkaline Phosphatase 114
Vital Signs:
Vital Signs
Temp Pulse Resp BP Pulse Ox
97.7 F 71 20 123/48 100
10/18/24 07:30 10/18/24 10:45 10/18/24 07:30 10/18/24 10:45 10/18/24 07:30
I&O
10/17/24 10/18/24 10/19/24
06:59 06:59 06:59
Intake Total 1080 / 1080 1680 / 1680
Output Total 1050 / 1050 1400 / 1400
Balance 30 / 30 280 / 280
--- NOTE | 2024-10-18 11:34 | W.PN.ID1 ---
Date of Service
Date of Service: October 18, 2024
Today's Communication
- c/w cefazolin 1 gm IV q12 through 10/28/24 - may require dose adjustments in the near future as TRISTEN resolves
- Picc in place
- disposition: possible discharge saturday at the earliest
Assessment / Plan
# Osteomyelitis of left 4th toe, metatarsal head and medial 5th met head
# TRISTEN on CKD; suspect prerenal, AIN less likely without eosinophilia or eosinophiluria
# Leukopenia - nearly resolved; Neutropenia - resolved
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
- OR bone cx: MSSA, MSSE; path 4th digit margin: negative for osteomyelitis; no comments on the 5th met
- Superficial Wound swab Pseudomonas, Staph aureus (MSSA), Group B strep
- Per Dr. Yun, he is concerned about the 5th met head with residual osteo.
- c/w cefazolin 1 gm IV q12 through 10/28/24 - may require dose adjustments in the near future as TRISTEN resolves
- Picc in place
- disposition: possible discharge saturday at the earliest
# TRISTEN on CKD
- bladder scans yesterday without significant PVR
- follow renal function another day
# Cachexia - BMI 17.8 last month now 15.8
- appreciate sales special agent inut, would also like patient to follow up with PCP re: routine cancer screenings shortly after discharge
- encouraged patient to try to eat and drink what he can 10/16
Chief Complaint
-: Other (osteomyelitis, adverse drug reaction)
Subjective / Review of Systems
afebrile
bp stable
PVRs yesterday dropped to <100
appears brighter, eating much better
Vital Signs / Physical Exam
Vital Signs
Vital Signs
Temp Pulse Resp BP Pulse Ox
97.7 F 71 20 123/48 100
05/25/25 07:30 10/18/24 10:45 10/18/24 07:30 10/18/24 10:45 10/18/24 07:30
Physical Exam
Constitutional: No Acute Distress
Cardiovascular: Regular Rate and S1/S2; Negative Murmur or Rub
Pulmonary: Clear and Symmetric; Negative Wheezes or Rales
Gastrointestinal: Soft, Non Tender, Non Distended and Normal Bowel Sounds
Skin: Warm and Dry; Negative Rash or Jaundice
Objective Data
Lab Data
Lab Results
10/18/24 05:18
10/18/24 05:18
ESR 78 mm/hour (0-20) H 10/17/24 06:04
PT 17.3 Sec (11.4-14.6) H 10/15/24 18:12
INR 1.36 10/15/24 18:12
APTT 88.0 Sec (23.4-35.0) H 10/18/24 05:18
Estimated Creat Clear 21 ml/min 10/18/24 05:18
Total Bilirubin 0.4 mg/dl (0.2-1.3) 10/18/24 05:18
AST 78 U/L (17-59) H 10/18/24 05:18
ALT 34 U/L (0-50) 10/18/24 05:18
Alkaline Phosphatase 114 U/L (38-126) 10/18/24 05:18
C-Reactive Protein 48.80 mg/L (0.0-10.00) H 10/17/24 06:04
Most recent labs reviewed.
Micro Results:
10/16/24 02:58 MRSA Screen - Final
Nose No Methicillin Resistant Staphylococcus aureus isolated.
[2024-10-18 11:39] VITALS: BP 124/53
--- NOTE | 2024-10-18 12:11 | W.PN.CARDCBS ---
Today's Communication / Plan
-
Continue rate control for atrial flutter
Continue IV heparin with eventual transition to oral anticoagulation prior to discharge.
Outpatient reevaluation for consideration for rhythm control therapy.
Impression / Plan
-
.
Primary Coagulation Operator: none prior to admission
Impression:
Presentation with dizziness, SOB
Acute hypoxia, neg w/u PE
Atrial flutter, new diagnosis of unclear duration
TRISTEN
Elevated troponin, med tx nonMI trop peak 0.1
Osteomyelitis
Acute L fourth MT head osteomyelitis s/p partial fourth ray amputation and fifth metatarsal head resection on the left foot during admission 08/2024
HTN
HLD
CKD stage 3B
Weight loss
Deconditioning
ECHO 10/16/24: EF 55-60%, aortic sclerosis
Plan:
-Patient with recent admission to [facility] 08/2024 for L foot osteomyelitis s/p Partial fourth ray amputation, and partial fifth metatarsal head resection now presents back to hospital due to dizziness, SOB, and hypoxia. Concern for PE given recent
sedentary nature.
Cont Metoprolol 12.5 mg BID for rate control of atrial flutter. BP remains on the low side.
Cont IV heparin for cardioembolic prophylaxis with plan to transition to Eliquis prior to discharge
Tentative plan for cardioversion as an outpatient if he remains in atrial flutter once improved from infection standpoint.
TSH normal
Primary service getting Heme test stool
Echo with normal LV function and no high-grade valve disease
Outpt ischemic eval for nonMI troponin, peak 0.1.
VQ scan low prob PE. periph US negative for DVT.
Wt coming down and cr improving without diuresis. EF is preserved.
TSH WNL
Renal following and received bicarb. Cr 2.6, cr baseline may be closer 1.8.
Wt loss eval as per primary service and PCP
Discussed with nursing.
Progress Note - Coagulation Operator
Subjective
Date of Service: October 18, 2024
Pt seen and examined. No complaints. No chest pain or shortness of breath.
Objective
Labs:
10/18/24 05:18
10/18/24 05:18
Labs
Hgb 8.5 g/dL (13.0-18.0) L 10/18/24 05:18
Hct 25.0 % (39.0-52.0) L 10/18/24 05:18
Plt Count 100 10^3/uL (130-400) L 10/18/24 05:18
PT 17.3 Sec (11.4-14.6) H 10/15/24 18:12
INR 1.36 10/15/24 18:12
APTT 88.0 Sec (23.4-35.0) H 10/18/24 05:18
Sodium 142 mmol/L (135-145) 10/18/24 05:18
Potassium 3.9 mmol/L (3.5-5.1) 10/18/24 05:18
BUN 57 mg/dl (9-20) H 10/18/24 05:18
Creatinine 2.6 mg/dL (0.7-1.3) H 10/18/24 05:18
Glucose 93 mg/dl (70-99) 10/18/24 05:18
Troponins
10/15/24 10/16/24 10/16/24
18:12 02:44 09:59
Troponin I 0.017 0.084 H* 0.118 H* D
10/16/24
15:16
Troponin I 0.087 H* D
Vital Signs and I&O:
Vital Signs
Temp Pulse Resp BP Pulse Ox
97.8 F 65 20 124/53 98
10/18/24 11:39 10/18/24 11:39 10/18/24 11:39 10/18/24 11:39 10/18/24 11:39
Vital Signs
Temp Pulse Resp BP Pulse Ox
97.8 F 65 20 124/53 98
10/18/24 11:39 10/18/24 11:39 10/18/24 11:39 10/18/24 11:39 10/18/24 11:39
Intake & Output
10/16/24 10/17/24 10/18/24 10/19/24
06:59 06:59 06:59 06:59
Intake Total 1815 / 1815 1080 / 1080 1680 / 1680
Output Total 1200 / 1200 1050 / 1050 1400 / 1400
Balance 615 / 615 30 / 30 280 / 280
Physical Exam
Physical Exam
General: No acute distress, AAOX3
Neck: Negative JVD
Heart: Irregularly irregular, Negative S3 positive S1/S2, Negative S4, No murmur
Lungs: CTA b/l, negative wheezes/rales/rhonchi
Abd: Positive BS, NT/ND, neg rebound/rigidity/guarding
Ext: Negative cyanosis/clubbing/edema
Neuro: nonfocal
[2024-10-18] MEDS: HEPARIN 25000 UNITS/250 ML IV (13:58)
[2024-10-18 15:00] VITALS: BP 125/53
--- NOTE | 2024-10-18 15:35 | W.PN.NEPH.PH ---
Today's Communication / Plan
-
follow labs
Assessment/Plan
-
IMP:
TRISTEN with CKD3b 1.7-2, lost f/u with Dr Webster in 2019
Acute hypoxic respiratory insufficiency-concern of PE
new onset atrial fibrillation/atrial flutter
Hypokalemia
ELevtaed trop; likely non ischemic myocardial injury
Non gap Metabolic acidosis
History of recent osteomyelitis
leukopenia
Anemia
Weightloss
Plan:
A/w sob, concern of PE, noted Atrial arrhythmia
TRISTEN-UA with 4+bld but microhematuria 3-6 rbc, ck-normal, cr stable at 2.6
U PCR at 2.3gm/gm of cr, previous serologies neg in 2019([facility])
pending serologies, neg U eoisinophils but eosinophilia noted, AIN in differential
Fena is low 0.8 suggest this is prerenal too
monitor UOP, renal US and CT shows can not r/o obstructive uropathy on left, pvr 581cc too on US
bladder scan at bedside 6cc, started flomax 10/17, he will need to see eventually
avoid nephrotoxins, off cefepime
met acidosis-better, non gap, off po bicarb today
Bp soft, echo opal EF,
likely he is euvolemic , holding diuresis.
d/w pt in detail
-
-
Date of Service: October 18, 2024
CC / HPI / ROS
-
Chief Complaint:
TRISTEN with ckd
History of Present Illness:
cr no change at 2.6, non oliguric
BP soft, on BB
met acidosis better 25
leucopenia improving 4.7
Review of Systems:
no cp or sob
no bd pain
appetite improving
Labs
-
Labs:
WBC 4.7 10^3/uL (4.8-10.8) L 10/18/24 05:18
RBC 2.52 10^6/uL (4.70-6.10) L 10/18/24 05:18
Hgb 8.5 g/dL (13.0-18.0) L 10/18/24 05:18
Hct 25.0 % (39.0-52.0) L 10/18/24 05:18
Plt Count 100 10^3/uL (130-400) L 10/18/24 05:18
Sodium 142 mmol/L (135-145) 10/18/24 05:18
Potassium 3.9 mmol/L (3.5-5.1) 10/18/24 05:18
Chloride 113 mmol/L (98-107) H 10/18/24 05:18
Carbon Dioxide 25 mmol/L (22-30) 10/18/24 05:18
BUN 57 mg/dl (9-20) H 10/18/24 05:18
Creatinine 2.6 mg/dL (0.7-1.3) H 10/18/24 05:18
eGFR 25.72 10/18/24 05:18
Glucose 93 mg/dl (70-99) 10/18/24 05:18
Calcium 8.5 mg/dl (8.4-10.2) 10/18/24 05:18
Udm-S-Zvsgvjatijg Pept 1500 pg/ml 10/15/24 18:12
Albumin 3.1 g/dl (3.5-5.0) L 10/18/24 05:18
Physical Exam
-
Vital Signs:
Vital Signs
Temp Pulse Resp BP Pulse Ox
97.8 F 65 20 124/53 98
10/18/24 11:39 10/18/24 11:39 10/18/24 11:39 10/18/24 11:39 10/18/24 11:39
Cardiovascular:: Regular rate and rhythm
Respiratory:: Bilateral: CTA
Lung Excursion:: Normal
Abdomen:: Nontender and Soft
Extremity Edema:: None: Bilateral:
Garcia Catheter: No
[2024-10-18 19:25] VITALS: BP 114/56
[2024-10-18 23:25] VITALS: BP 130/55
[2024-10-19 01:15] LABS: Complement C3 68 mg/dl (88-165)
[2024-10-19 03:50] VITALS: BP 129/57
[2024-10-19 04:59] LABS: % Basophils 1.1 % (0-2); % Eosinophils 19.7 % (0-6); % Immature Granulocytes 0.2 % (0-0.5); % Lymphocytes 31.3 % (20.5-51.1); % Monocytes 15.8 % (1.7-9.3); % Neutrophils 31.9 % (42.2-75.2); Absolute Basophils 0.1 10^3/uL (0-0.2); Absolute Lymphocytes 1.6 10^3/uL (1.2-3.4); Absolute Monocytes 0.8 10^3/uL (0.1-0.6); Absolute Neutrophils 1.7 10^3/uL (1.4-6.5); Hematocrit 25.5 % (39.0-52.0); Hemoglobin 8.8 g/dL (13.0-18.0); Mean Corp Hgb Conc. 34.5 g/dL (33.0-37.0); Mean Corpuscular Hgb 34.8 pg (27.0-31.0); Mean Corpuscular Volume 100.8 fL (80.0-94.0); Mean Platelet Volume 11.4 fL (7.4-10.4); Nucleated Red Blood Cells % 0 % (-); Platelet Count 114 10^3/uL (130-400); Red Blood Cell Count 2.53 10^6/uL (4.70-6.10); Red Cell Dist. Width 11.8 % (11.5-14.5); White Blood Cell Count 5.2 10^3/uL (4.8-10.8)
[2024-10-19 05:07] LABS: APTT 94.8 Sec (23.4-35.0)
[2024-10-19 06:02] LABS: ALT (SGPT) 20 U/L (0-50); AST (SGOT) 61 U/L (17-59); Albumin 3.1 g/dl (3.5-5.0); Alkaline Phosphatase 114 U/L (38-126); Blood Urea Nitrogen 46 mg/dl (9-20); Calcium 8.3 mg/dl (8.4-10.2); Carbon Dioxide 24 mmol/L (22-30); Chloride 113 mmol/L (98-107); Estimated Creatinine Clearance 25 ml/min; Glucose 89 mg/dl (70-99); Potassium 3.8 mmol/L (3.5-5.1); Sodium 143 mmol/L (135-145); Total Bilirubin 0.4 mg/dl (0.2-1.3); Total Protein 6.4 g/dl (6.3-8.2); eGFR 31.43
[2024-10-19 07:30] VITALS: BP 105/54
[2024-10-19 07:31] LABS: ANA, IgG Reflex to HEp-2 None Detected (None Detected)
[2024-10-19] MEDS: LOPRESSOR 12.5 MG PO (07:58)
[2024-10-19] MEDS: FLOMAX 0.4 MG PO (07:58)
[2024-10-19] MEDS: ANCEF 5 IV (07:58)
[2024-10-19] MEDS: CRESTOR 5 MG PO (07:58)
[2024-10-19] MEDS: COLACE 100 MG PO (07:58)
--- NOTE | 2024-10-19 10:01 | W.PN.ID1 ---
Date of Service
Date of Service: October 19, 2024
Today's Communication
- c/w cefazolin - increased dose to 2 gm IV q12, script given to case advocate 10/19
- PICC in place
- disposition: possible discharge saturday
Assessment / Plan
# Osteomyelitis of left 4th toe, metatarsal head and medial 5th met head
# TRISTEN on CKD; suspect prerenal, AIN less likely without eosinophilia or eosinophiluria
# Leukopenia - nearly resolved; Neutropenia - resolved
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
- OR bone cx: MSSA, MSSE; path 4th digit margin: negative for osteomyelitis; no comments on the 5th met
- Superficial Wound swab Pseudomonas, Staph aureus (MSSA), Group B strep
- Per Dr. Yun, he is concerned about the 5th met head with residual osteo.
- c/w cefazolin - increased dose to 2 gm IV q12, script given to case advocate 10/19
- PICC in place
- disposition: possible discharge saturday
# TRISTEN on CKD
- bladder scans yesterday without significant PVR
- follow renal function another day
# Cachexia - BMI 17.8 last month now 15.8
- appreciate special education curriculum specialist inut, would also like patient to follow up with PCP re: routine cancer screenings shortly after discharge
- encouraged patient to try to eat and drink what he can 10/16
Chief Complaint
-: Other (osteomyelitis, adverse drug reaction)
Subjective / Review of Systems
afebrile
bp stable
tolerating current therapies
no new complaints
Vital Signs / Physical Exam
Vital Signs
Vital Signs
Temp Pulse Resp BP Pulse Ox
97.8 F 88 22 105/54 97
10/19/24 07:30 10/19/24 07:58 10/19/24 07:30 10/19/24 07:58 10/19/24 07:30
Physical Exam
Constitutional: No Acute Distress
Cardiovascular: Regular Rate and S1/S2; Negative Murmur or Rub
Pulmonary: Clear and Symmetric; Negative Wheezes or Rales
Gastrointestinal: Soft, Non Tender, Non Distended and Normal Bowel Sounds
Skin: Warm and Dry; Negative Rash or Jaundice
Lines: PICC (no erythema, warmth, tenderness or drainage)
Objective Data
Lab Data
Lab Results
10/19/24 04:37
10/19/24 04:37
ESR 78 mm/hour (0-20) H 10/17/24 06:04
PT 17.3 Sec (11.4-14.6) H 10/15/24 18:12
INR 1.36 10/15/24 18:12
APTT 94.8 Sec (23.4-35.0) H 10/19/24 04:37
Estimated Creat Clear 25 ml/min 10/19/24 04:37
Total Bilirubin 0.4 mg/dl (0.2-1.3) 10/19/24 04:37
AST 61 U/L (17-59) H 10/19/24 04:37
ALT 20 U/L (0-50) 10/19/24 04:37
Alkaline Phosphatase 114 U/L (38-126) 10/19/24 04:37
C-Reactive Protein 48.80 mg/L (0.0-10.00) H 10/17/24 06:04
Most recent labs reviewed.
Micro Results:
10/16/24 02:58 MRSA Screen - Final
Nose No Methicillin Resistant Staphylococcus aureus isolated.
--- NOTE | 2024-10-19 10:58 | CON.GI ---
Consultation
-
Date/Time Consultation Requested: 10/19/24
Date/Time Consultation Performed: 10/19/24
Requesting Provider:
Performing Provider:
Reason for Consultation: anemia, weight loss
Medical History
Chief Complaint / HPI
Chief Complaint: weight loss
History of Present Illness:
69-year-old male with patient sent history of osteomyelitis of the left fourth metatarsal, status post partial amputation, treated with cefepime presented to the hospital with shortness of breath, in the ER, noted to have acute on chronic renal
insufficiency, a flutter, PE ruled out and started on IV heparin. Cefepime was thought to be the reason for this acute increase in creatinine. He was noted to have anemia with hemoglobin trending down to 8.8, heme positive stool and GI consult
called in. As per patient, he is not aware of any history of anemia but as per chart, anemia was noted since 2019. He recently started oral iron in the last couple of months, never had blood transfusion or IV iron infusions that he can recall.
From a GI standpoint, he denies any abdominal pain, nausea or vomiting. No heartburn or trouble swallowing. Mild constipation previously and would take Colace as needed but since he had his left metatarsal amputation, he was taking narcotics which
made him slightly more constipated. Denies any blood in the stool or black stool. He did lose about 15 pounds in the last couple of months. He also reports that he had a Cologuard test that was positive couple of years ago but never pursued
colonoscopy. He never had an upper endoscopy or colonoscopy. No previous history of GI bleeding.
Reviewing labs, hemoglobin was 11.8 in August 2024 and now it is about 8.8. Macrocytic anemia, iron saturation high on oral iron.
No family history of colon cancer or colon polyps that he is aware of. Does not take NSAIDs.
Past Medical History
Past Medical History: HTN, Hypercholesterolemia and Other (CKD, osteomyelitis of left fourth metatarsal status post partial amputation)
Social History
Tobacco: Non-Smoker
Alcohol: Occasional
Family History
Family History: Reviewed & Not Pertinent
Allergies / Home Medications
Allergy/AdvReac Type Severity Reaction Status Date / Time
No Known Allergies Allergy Verified 10/15/24 17:30
�Medication �Instructions �Recorded
rosuvastatin 5 mg tablet 5 mg PO DAILY High Cholesterol 09/16/24
cefepime 2 gram solution for 2,000 mg IV DAILY Infection 10/15/24
injection
Review of Systems
-
All other systems: A 12 pt ROS was Negative except as stated above in HPI
Vital Signs
Temp Pulse Resp BP Pulse Ox
97.8 F 88 22 105/54 97
10/19/24 07:30 10/19/24 07:58 10/19/24 07:30 10/19/24 07:58 10/19/24 07:30
Physical Exam
Exam
GI: Soft, Non Tender, Non Distended and Normal Bowel Sounds
Results
WBC 5.2 10^3/uL (4.8-10.8) 10/19/24 04:37
Hgb 8.8 g/dL (13.0-18.0) L 10/19/24 04:37
Hct 25.5 % (39.0-52.0) L 10/19/24 04:37
MCV 100.8 fL (80.0-94.0) H 10/19/24 04:37
Plt Count 114 10^3/uL (130-400) L 10/19/24 04:37
Absolute Neuts (auto) 1.7 10^3/uL (1.4-6.5) 10/19/24 04:37
PT 17.3 Sec (11.4-14.6) H 10/15/24 18:12
INR 1.36 10/15/24 18:12
APTT 94.8 Sec (23.4-35.0) H 10/19/24 04:37
Sodium 143 mmol/L (135-145) 10/19/24 04:37
Potassium 3.8 mmol/L (3.5-5.1) 10/19/24 04:37
Chloride 113 mmol/L (98-107) H 10/19/24 04:37
Carbon Dioxide 24 mmol/L (22-30) 10/19/24 04:37
BUN 46 mg/dl (9-20) H 10/19/24 04:37
Creatinine 2.2 mg/dL (0.7-1.3) H 10/19/24 04:37
Calcium 8.3 mg/dl (8.4-10.2) L 10/19/24 04:37
Total Bilirubin 0.4 mg/dl (0.2-1.3) 10/19/24 04:37
AST 61 U/L (17-59) H 10/19/24 04:37
ALT 20 U/L (0-50) 10/19/24 04:37
Alkaline Phosphatase 114 U/L (38-126) 10/19/24 04:37
Diagnostic Image Results:
Prior GI Procedures:
EGD:
Colonoscopy:
Assessment / Plan
-
69-year-old male with history of hypertension, high cholesterol, chronic kidney disease, recently left metatarsal osteomyelitis status post partial amputation and treated with antibiotics presenting with shortness of breath, acute and chronic
elevation in creatinine likely from antibiotic, noted to have macrocytic anemia and heme positive stool apart from 15 pound weight loss and history of positive Cologuard. During the hospital stay, noted to have new diagnosis of a flutter, currently
on IV heparin. Echo with normal LV function.
- Macrocytic Anemia with heme positive stool and history of positive Cologuard couple of years ago
15 pound weight loss, CT scan of the chest/abdomen/pelvis without contrast-as per report markedly limited study cannot rule out malignancy.
Given anemia and heme positive stool, will start with upper endoscopy and colonoscopy to evaluate. Patient agreeable.
Hold heparin at 5 AM tomorrow morning, which will be at least 4 hours before the procedure. Notified hospitalist team regarding this.
Will check vitamin B12 and folate levels. Iron studies showed elevated iron saturation and total iron.
Will add PPI.
Eventually will need CT scan of the abdomen pelvis with at least oral contrast given underlying renal insufficiency to evaluate weight loss.
Will follow-up
-
-
Thank you for consultation and allowing me to participate in the patient's care. Please call the communication engineer GI physician during the after hours with any questions or concerns.
--- NOTE | 2024-10-19 11:16 | W.PN.HOSP.TC ---
Today's Communication/Plan
-
GI consult, prep for scope examinations
Hold heparin gtt at 5 am on 10/20
Assessment / Plan
Assessment / Plan
Physical exam:
General: Other (69y M in no acute distress.)
HEENT: Moist mucous membranes
Respiratory: Clear; No Wheezes, Rales or Rhonchi
Cardiac: S1/S2 and Irregular Rhythm; No Murmur
GI: Soft, Non Tender, Non Distended and Normal Bowel Sounds
Rectal: positive occult blood in stool
Musculoskeletal: no edema
Neuro: AO x 3 and Nonfocal/grossly intact
Psych: Calm
Acute hypoxic respiratory insufficiency,, resolved. On Room air now.
likely 2/2 new onset atrial fibrillation/atrial flutter
Echo with preserved EF
Cardiology following
Continue with IV heparin at this time; eventual transition to Eliquis
VQ scan with low prob of PE; venous doppler neg
Wean oxygen as tolerated
Pulmonary will follow-up patient
Atrial flutter/fibrillation -new onset atrial fibrillation, no symptoms of palpitations chest pain but did complain of episodes of dizziness and lightheadedness. Currently rate controlled off any medications
- Monitor on telemetry
- DC'd amlodipine, as needed metoprolol for now, overnight predominance of stating bradycardia. Monitor
- Continue heparin
TSH wnl
- Cardiology following
Hypokalemia
Replete
Elevated trop; likely non ischemic myocardial injury
TRISTEN seems c/w acute interstitial nephritis
Has CKD IIIb 1.7
Urine eos negative but positive in blood
Metabolic acidosis improving
Renal ultrasound with obstructive uropathy, patient refusing Garcia. Started Flomax
Bladder scan does not appear to have high PVR, monitor
Appreciate nephrology help
History of recent osteomyelitis
Discontinue further cefepime
ID following, now started on Ancef
leukopenia - resolved.
Thrombocytopenia, possible related to cefepime
Monitor
Anemia; suspect anemia of chronic disease
# Recent Weight loss and loss of appetite. Patient feels it was related to the foot infection and antibiotic
Seems the plan to wait for the pt to have BM to do heme test. Did rectal exam 10/19 and was positive. Pt said he had positive Cologuard test 3 years ago but did not follow and no GI issues. He has been taking oral iron from [facility] based on his 's
recommendations. Per pt, his PCP always said his labs were within average and denied known history of anemia although it was noted in 2019 per external records in the system.
I d/w GI doctor, pt was seen, plan for GI endoscopy this admission. Canceled oral contrast CT to avoid contrast in gut.
#CT showed Mild to moderate left renal collecting system dilatation. Following the course of the left ureter markedly limited, cannot exclude obstructive uropathy.
Patient refused Garcia catheter, started Flomax. No retention in hospital. for OP urology follow up.
DVT PPX - on heparin
Code status - Full code
Total time spent to see the patient, examine the patient, review data and lab results, discuss treatment plan with patient, consultants and nursing staff around 55 minutes
Anticipated Discharge: > 48 hours
Subjective/Interval History
-
Date of Service: October 19, 2024
No abdominal pain
No sob
Objective Data
-
Labs:
Laboratory Results
10/19/24
04:37
WBC 5.2
Hgb 8.8 L
Hct 25.5 L
Plt Count 114 L
APTT 94.8 H
Sodium 143
Potassium 3.8
Chloride 113 H
Carbon Dioxide 24
BUN 46 H
Creatinine 2.2 H
Glucose 89
Calcium 8.3 L
Total Bilirubin 0.4
AST 61 H
ALT 20
Alkaline Phosphatase 114
Vital Signs:
Vital Signs
Temp Pulse Resp BP Pulse Ox
97.8 F 88 22 105/54 97
10/19/24 07:30 10/19/24 07:58 10/19/24 07:30 10/19/24 07:58 10/19/24 07:30
I&O
10/18/24 10/19/24 10/20/24
06:59 06:59 06:59
Intake Total 1680 / 1680 2039 / 2039
Output Total 1400 / 1400 2775 / 2775
Balance 280 / 280 -735 / -735
[2024-10-19 11:53] VITALS: BP 108/57
--- NOTE | 2024-10-19 12:11 | CM ---
accounting practice manager reviewed patient's chart and patient was admitted from home and patient was receiving home IV infusion for ABX from [facility]. [facility] were also supplying the nurse. accounting practice manager spoke with ID physician and plan is to send patient
home again with home infusion, script faxed to [facility] today. Patient and spouse will not require teaching and they are able to manage in home.
Plan; Home with spouse and home infusion from [facility], script faxed to [facility].
[2024-10-19] MEDS: PROTONIX IV 40 MG IV (12:19)
--- NOTE | 2024-10-19 12:19 | W.PN.NEPH.PH ---
Addendum entered and electronically signed by Karolina Fernández MD 10/19/24 13:54:
spoke with pt and
reviewed serologies, pending ANCA
given improving cr, no immediate plan of K biopsy
Original Note:
Today's Communication / Plan
-
see plan
Assessment/Plan
-
IMP:
TRISTEN with CKD3b 1.7-2, lost f/u with Dr Webster in 2019
Acute hypoxic respiratory insufficiency-concern of PE
new onset atrial fibrillation/atrial flutter
Hypokalemia
ELevtaed trop; likely non ischemic myocardial injury
Non gap Metabolic acidosis
History of recent osteomyelitis
leukopenia
Anemia
Weightloss
Plan:
A/w sob, concern of PE, noted Atrial arrhythmia
TRISTEN-UA with 4+bld but microhematuria 3-6 rbc, ck-normal, cr better at 2.2
U PCR at 2.3gm/gm of cr, previous serologies neg in 2019([facility])
complements are low, MARY neg, await ANCA, check for hep c
neg U eoisinophils but eosinophilia noted, possible AIN+prerenal with low Fena
monitor UOP, renal US and CT shows can not r/o obstructive uropathy on left, pvr 581cc too on US
bladder scan at bedside neg, started flomax 10/17, he will need to see eventually
avoid nephrotoxins, off cefepime
met acidosis-better, non gap, off po bicarb
Bp soft, echo opal EF,
he is euvolemic , holding diuresis.
for GI eval for +ve heme occult now that he will on AC
based on pending serology may consider kidney biopsy prior transitioning to po AC
-
-
Date of Service: October 19, 2024
CC / HPI / ROS
-
Chief Complaint:
TRISTEN with ckd
History of Present Illness:
cr down to 2.2, non oliguric
BP soft, on BB
leucopenia improving 5.2
Review of Systems:
no cp or sob
no abd pain
Labs
-
Labs:
WBC 5.2 10^3/uL (4.8-10.8) 10/19/24 04:37
RBC 2.53 10^6/uL (4.70-6.10) L 10/19/24 04:37
Hgb 8.8 g/dL (13.0-18.0) L 10/19/24 04:37
Hct 25.5 % (39.0-52.0) L 10/19/24 04:37
Plt Count 114 10^3/uL (130-400) L 10/19/24 04:37
Sodium 143 mmol/L (135-145) 10/19/24 04:37
Potassium 3.8 mmol/L (3.5-5.1) 10/19/24 04:37
Chloride 113 mmol/L (98-107) H 10/19/24 04:37
Carbon Dioxide 24 mmol/L (22-30) 10/19/24 04:37
BUN 46 mg/dl (9-20) H 10/19/24 04:37
Creatinine 2.2 mg/dL (0.7-1.3) H 10/19/24 04:37
eGFR 31.43 10/19/24 04:37
Glucose 89 mg/dl (70-99) 10/19/24 04:37
Calcium 8.3 mg/dl (8.4-10.2) L 10/19/24 04:37
Shc-S-Dizsglhdxps Pept 1500 pg/ml 10/15/24 18:12
Albumin 3.1 g/dl (3.5-5.0) L 10/19/24 04:37
Physical Exam
-
Vital Signs:
Vital Signs
Temp Pulse Resp BP Pulse Ox
98.1 F 77 18 108/57 96
10/19/24 11:53 10/19/24 11:53 10/19/24 11:53 10/19/24 11:53 10/19/24 11:53
Cardiovascular:: Regular rate and rhythm
Respiratory:: Bilateral: CTA
Lung Excursion:: Normal
Abdomen:: Nontender and Soft
Extremity Edema:: None: Bilateral:
Garcia Catheter: No
[2024-10-19] MEDS: NSS (PRESERVATIVE FREE) 10 ML IV (12:20)
[2024-10-19 14:13] LABS: Myeloperoxidase Antibody 0 AU/mL (0-19); Serine Protease-3, IgG 0 AU/mL (0-19)
[2024-10-19] MEDS: GAVILAX 238 GM PO (16:03)
[2024-10-19 16:33] VITALS: BP 96/55
[2024-10-19 19:41] VITALS: BP 94/54
[2024-10-19] MEDS: HEPARIN 25000 UNITS/250 ML IV (20:31)
[2024-10-19] MEDS: COLACE PO (20:37)
[2024-10-19] MEDS: ANCEF 10 IV (20:37)
[2024-10-19] MEDS: LOPRESSOR PO (20:37)
[2024-10-19 23:55] VITALS: BP 104/53
--- NOTE | 2024-10-20 01:18 | PTCARENOTE ---
Assumed care of pt from previous nurse. pt denies pain. Pt heparin drip therapeutic running at 8 units per hour. Pt is on tele running aflutter. Pt on colonoscopy prep. pt call garcia is within reach, pt rings irvin. will con to monitor.
[2024-10-20 03:52] VITALS: BP 105/47
[2024-10-20] MEDS: GAVILAX 125 GM PO (05:58)
[2024-10-20 06:33] LABS: APTT 63.2 Sec (23.4-35.0)
[2024-10-20 07:15] VITALS: BP 117/49
[2024-10-20] MEDS: COLACE 100 MG PO ×2 (08:11→20:14)
[2024-10-20] MEDS: ANCEF 10 IV ×2 (08:11→20:14)
[2024-10-20] MEDS: FLOMAX 0.4 MG PO (08:14)
[2024-10-20] MEDS: CRESTOR 5 MG PO (08:14)
[2024-10-20] MEDS: LOPRESSOR 12.5 MG PO ×2 (08:14→19:55)
[2024-10-20] MEDS: NSS (PRESERVATIVE FREE) 10 ML IV (08:15)
[2024-10-20] MEDS: PROTONIX IV 40 MG IV (08:15)
--- NOTE | 2024-10-20 08:57 | W.PN.HOSP.TC ---
Today's Communication/Plan
-
Bowel prep
BMP
Assessment / Plan
Assessment / Plan
Physical exam:
General: Other (69y M in no acute distress.)
HEENT: Moist mucous membranes
Respiratory: Clear; No Wheezes, Rales or Rhonchi
Cardiac: S1/S2 and Irregular Rhythm; No Murmur
GI: Soft, Non Tender, Non Distended and Normal Bowel Sounds
Rectal: positive occult blood in stool
Musculoskeletal: no edema
Neuro: AO x 3 and Nonfocal/grossly intact
Psych: Calm
Acute hypoxic respiratory insufficiency,, resolved. On Room air now.
likely 2/2 new onset atrial fibrillation/atrial flutter
Echo with preserved EF
Cardiology following
Continue with IV heparin at this time; eventual transition to Eliquis
VQ scan with low prob of PE; venous doppler neg
Wean oxygen as tolerated
Pulmonary will follow-up patient
#
# Recent Weight loss and loss of appetite. Patient feels it was related to the foot infection and antibiotic
Seems the plan to wait for the pt to have BM to do heme test. Did rectal exam 10/19 and was positive. Pt said he had positive Cologuard test 3 years ago but did not follow and no GI issues. He has been taking oral iron from OTC based on his 's
recommendations. Per pt, his PCP always said his labs were within average and denied known history of anemia although it was noted in 2019 per external records in the system.
I d/w GI doctor, pt was seen, plan for GI endoscopy, doing bowel prep. Canceled oral contrast CT to avoid contrast in gut.
Atrial flutter/fibrillation -new onset atrial fibrillation, no symptoms of palpitations chest pain but did complain of episodes of dizziness and lightheadedness. Currently rate controlled off any medications
- Monitor on telemetry
- DC'd amlodipine, low dose metoprolol.
- Continue heparin gtt until GI work up is done
TSH wnl
- Cardiology following
Hypokalemia
Replete
Elevated trop; likely non ischemic myocardial injury
TRISTEN seems c/w acute interstitial nephritis
Has CKD IIIb 1.7
Urine eos negative but positive in blood
Metabolic acidosis improving
Renal ultrasound with obstructive uropathy, patient refusing Garcia. Started Flomax
Bladder scan does not appear to have high PVR, monitor
Appreciate nephrology help
History of recent osteomyelitis
Discontinue further cefepime
ID following, now started on Ancef
leukopenia - resolved.
Thrombocytopenia, possible related to cefepime
Monitor
Anemia; suspect anemia of chronic disease
#CT showed Mild to moderate left renal collecting system dilatation. Following the course of the left ureter markedly limited, cannot exclude obstructive uropathy.
Patient refused Garcia catheter, started Flomax. No retention in hospital. for OP urology follow up.
DVT PPX - on heparin
Code status - Full code
Total time spent to see the patient, examine the patient, review data and lab results, discuss treatment plan with patient, consultants and nursing staff around 55 minutes
Anticipated Discharge: 24 - 48 hours
Subjective/Interval History
-
Date of Service: October 20, 2024
No abdominal pain
No chest pain
No sob
Objective Data
-
Labs:
Laboratory Results
10/20/24
06:10
APTT 63.2 H
Vital Signs:
Vital Signs
Temp Pulse Resp BP Pulse Ox
97.6 F 71 16 117/49 99
10/20/24 07:15 10/20/24 08:14 10/20/24 07:15 10/20/24 08:14 10/20/24 07:15
I&O
10/19/24 10/20/24 10/21/24
06:59 06:59 06:59
Intake Total 2039 3606 / 3606
Output Total 2775 / 2775 600 / 600
Balance -735 / -735 3606 / 3606 -600 / -600
[2024-10-20 09:20] LABS: Vitamin B12 517 pg/ml (239-931)
--- NOTE | 2024-10-20 09:28 | PN.CDI ---
Addendum entered and electronically signed by Prisca Ernandez MD 10/20/24 09:43:
severe protein calorie malnutrition
Original Note:
CDI
- -
CDI:
Physician Documentation Request
Admit Date: 10/15/24 22:12
Dear Doctor Awais,
Please review the following and provide your response in the progress notes.
Clinical Indicators:
Tire Mechanic, 10/19
#...meets AND and ASPEN criteria for severe protein calorie malnutrition
#...of chronic disease due to a loss of more than 5% BW
#...over 1 month and less than 75% of estimated nutrient needs for over 1 month.
PN, 10/20
# Recent Weight loss and loss of appetite.
#...Patient feels it was related to the foot infection and antibiotic
Based on the above and your clinical assessment, please clarify specificity regarding the severity of the malnutrition:
Severe Protein Calorie Malnutrition of chronic disease
Other (please specify)
[place] Criteria (ACP Hospitalist 2017)
2 or more criteria must be present for either
non severe or severe malnutrition
Note that the criteria differs related to the
presence of an acute or chronic illness
Chronic Illness
Energy Intake Non Severe: <75% for >1 month
Severe: <75% for >1 month
Weight Loss Non Severe: 5% over 1 month
7.5% over 3 months
10% over 6 months
20% over 1 year
Severe: >5% over 1 month
>7.5% over 3 months
>10% over 6 months
>20% over 1 year
Body Fat Non Severe: Mild Loss
Severe: Severe Loss
Muscle Mass Non Severe: Mild Loss
Severe: Severe Loss
Use of terms such as suspected, likely, concern for, or probable (associated with a specific diagnosis that is being evaluated, monitored, or treated as if it exists) are acceptable and can be coded in the inpatient setting, when documented at the
time of discharge.
Thank you,
Lauren Dee RN BSN CCDS
CDI Specialist
Please contact via tiger text
Please use your independent medical judgment in providing your response.
--- NOTE | 2024-10-20 09:36 | W.PN.ID1 ---
Date of Service
Date of Service: October 20, 2024
Today's Communication
Continue cefazolin.
Assessment / Plan
# Osteomyelitis of left 4th toe, metatarsal head and medial 5th met head
# TRISTEN on CKD; suspect prerenal, AIN less likely without eosinophilia or eosinophiluria
# Neutropenia/thrombocytopenia - suspect due to prolonged cefepime; resolved off cefepime
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
- OR bone cx: MSSA, MSSE; path 4th digit margin: negative for osteomyelitis; no comments on the 5th met
- Superficial Wound swab Pseudomonas, Staph aureus (MSSA), Group B strep
- Per Dr. Yun, he is concerned about the 5th met head with residual osteo.
- c/w cefazolin 2 gm IV q12 through 10/28/2024, script given to social work case manager 10/19
- PICC in place
# TRISTEN on CKD, improving
- bladder scans without significant PVR
-
# Cachexia - BMI 17.8 last month now 15.8
- For colonoscopy today.
Chief Complaint
-: Other (osteomyelitis, adverse drug reaction)
Subjective / Review of Systems
For colonoscopy today. Feeling improved. No SOB.
Vital Signs / Physical Exam
Vital Signs
Vital Signs
Temp Pulse Resp BP Pulse Ox
97.6 F 71 16 117/49 99
10/20/24 07:15 10/20/24 08:14 10/20/24 07:15 10/20/24 08:14 10/20/24 07:15
Physical Exam
Constitutional: No Acute Distress and Cachetic
Cardiovascular: Regular Rate and S1/S2; Negative Murmur or Rub
Pulmonary: Clear and Symmetric; Negative Wheezes or Rales
Gastrointestinal: Soft, Non Tender, Non Distended and Normal Bowel Sounds
Extremities: Negative Edema
Neurological: AO x 3
Lines: PICC (no erythema, warmth, tenderness or drainage)
Objective Data
Lab Data
ESR 78 mm/hour (0-20) H 10/17/24 06:04
PT 17.3 Sec (11.4-14.6) H 10/15/24 18:12
INR 1.36 10/15/24 18:12
APTT 63.2 Sec (23.4-35.0) H 10/20/24 06:10
Estimated Creat Clear 25 ml/min 10/19/24 04:37
Total Bilirubin 0.4 mg/dl (0.2-1.3) 10/19/24 04:37
AST 61 U/L (17-59) H 10/19/24 04:37
ALT 20 U/L (0-50) 10/19/24 04:37
Alkaline Phosphatase 114 U/L (38-126) 10/19/24 04:37
C-Reactive Protein 48.80 mg/L (0.0-10.00) H 10/17/24 06:04
Most recent labs reviewed.
Micro Results:
10/16/24 02:58 MRSA Screen - Final
Nose No Methicillin Resistant Staphylococcus aureus isolated.
[2024-10-20 10:09] LABS: Hematocrit 26.8 % (39.0-52.0); Hemoglobin 9.4 g/dL (13.0-18.0); Mean Corp Hgb Conc. 35.1 g/dL (33.0-37.0); Mean Corpuscular Hgb 34.7 pg (27.0-31.0); Mean Corpuscular Volume 98.9 fL (80.0-94.0); Mean Platelet Volume 10.7 fL (7.4-10.4); Platelet Count 123 10^3/uL (130-400); Red Blood Cell Count 2.71 10^6/uL (4.70-6.10); Red Cell Dist. Width 11.9 % (11.5-14.5); White Blood Cell Count 5.3 10^3/uL (4.8-10.8)
--- NOTE | 2024-10-20 10:13 | W.PN.CARDCBS ---
Addendum entered and electronically signed by Roger Alberto MD 10/20/24 13:11:
I saw and examined the patient.
The Meat Stuffer's note was reviewed and I agree with the note.
Comment: Briefly, 69-year-old man presenting with dyspnea found to be in typical atrial flutter which is a new diagnosis for him.
Maintained on IV heparin, but unfortunately developed anemia and heme positive stools
Undergoing GI workup with plan for EGD/colonoscopy
After completion of GI workup would transition to Eliquis if able prior to discharge
With ongoing anemia plan for rate control strategy, continue p.o. metoprolol for, goal heart rate less than 110 bpm
Consider eventual cardioversion as an outpatient if he remains in atrial flutter
Echo here with normal LV function and no high-grade valve disease
Rest per Yani Tinajero
Original Note:
Today's Communication / Plan
-
Continue IV heparin until cleared by ID and GI for oral anticoagulation
Continue low-dose Toprol for rate control
Continue IV antibiotics per ID
GI has been consulted with plan for endoscopy/colonoscopy within next 24 hours
Impression / Plan
-
.
Primary Development Advisor: none prior to admission, initial consultation Roger Alberto
Impression:
Presentation 10/20/2024 with dizziness, SOB
Acute hypoxia, neg w/u PE
Atrial flutter, new diagnosis of unclear duration
TRISTEN
Elevated troponin, peak 0.1, suspect non-ischemic myocardial injury
Recurrent Osteomyelitis
Acute L fourth MT head osteomyelitis s/p partial fourth ray amputation and fifth metatarsal head resection on the left foot during admission 08/2024
HTN
HLD
CKD stage 3B
Weight loss
Deconditioning
ECHO 10/16/24: EF 55-60%, aortic sclerosis
Plan:
-Patient with recent admission to [facility] 08/2024 for L foot osteomyelitis s/p Partial fourth ray amputation, and partial fifth metatarsal head resection now presents back to hospital due to dizziness, SOB, and hypoxia.
Negative V/Q scan for PE and negative venous Doppler of lower extremities
Continue IV antibiotics per ID
- New diagnosis of atrial flutter
Cont Metoprolol 12.5 mg BID for rate control of atrial flutter.
BP remains on the low side which prevents up titration of medication
Cont IV heparin for cardioembolic prophylaxis with plan to transition to Eliquis prior to discharge. Await GI workup and nephrology workup prior to initiating OAC
Tentative plan for cardioversion as an outpatient if he remains in atrial flutter once improved from infection standpoint.
TSH normal
-Recent weight loss, lack of appetite.
Positive Hemoccult. Also positive Cologuard test 3 years ago.
Hemoglobin stable at 9.4
GI has been consulted with plan for endoscopy/colonoscopy prior to initiating anticoagulation
-Abnormal troponin, peaked 0.1
Suspect nonischemic myocardial injury secondary to osteomyelitis
Echo with normal LV function and no high-grade valve disease
Outpt ischemic eval for nonMI troponin, peak 0.1.
-TRISTEN on CKD, 3B, nephrology following
Wt coming down and cr improving without diuresis. EF is preserved.
Renal following and received bicarb. Peak creatinine 2.8, currently 2.2. baseline may be closer 1.8.
Renal ultrasound with obstructive uropathy. Refused Garcia. Started on Flomax
Nephrology considering renal biopsy prior to transitioning to LEE
Discussed with nursing.
Progress Note - Development Advisor
Subjective
Date of Service: October 20, 2024
Patient seen and examined. Patient resting comfortably in bed. Denies any cardiac concerns including chest pain, shortness of breath, dizziness lightheadedness or palpitations
Objective
Labs:
10/20/24 09:56
Labs
Hgb 9.4 g/dL (13.0-18.0) L 10/20/24 09:56
Hct 26.8 % (39.0-52.0) L 10/20/24 09:56
Plt Count 123 10^3/uL (130-400) L 10/20/24 09:56
PT 17.3 Sec (11.4-14.6) H 10/15/24 18:12
INR 1.36 10/15/24 18:12
APTT 63.2 Sec (23.4-35.0) H 10/20/24 06:10
Sodium 143 mmol/L (135-145) 10/19/24 04:37
Potassium 3.8 mmol/L (3.5-5.1) 10/19/24 04:37
BUN 46 mg/dl (9-20) H 10/19/24 04:37
Creatinine 2.2 mg/dL (0.7-1.3) H 10/19/24 04:37
Glucose 89 mg/dl (70-99) 10/19/24 04:37
Vital Signs and I&O:
Vital Signs
Temp Pulse Resp BP Pulse Ox
97.6 F 71 16 117/49 99
10/20/24 07:15 10/20/24 08:14 10/20/24 07:15 10/20/24 08:14 10/20/24 07:15
Vital Signs
Temp Pulse Resp BP Pulse Ox
97.6 F 71 16 117/49 99
10/20/24 07:15 10/20/24 08:14 10/20/24 07:15 10/20/24 08:14 10/20/24 07:15
Intake & Output
10/18/24 10/19/24 10/20/24 10/21/24
06:59 06:59 06:59 06:59
Intake Total 1680 / 1680 2040 / 2040 3606 / 3606
Output Total 1400 / 1400 2775 / 2775 600 / 600
Balance 280 / 280 -735 / -735 3606 / 3606 -600 / -600
Physical Exam
Physical Exam
GEN: No distress, awake, Ox3, thin elderly male
HEENT: supple, anicteric, mmm
LUNGS: CTA, no wheezes/rales
CV: Irregularly irregular, S1/S2, no murmur, rub or gallop
ABD: soft, BS+, NT/ND
EXT: No edema, clubbing or cyanosis
NEURO: Gross non-focal
SKIN: No rash, warm, dry, pink
[2024-10-20 10:25] LABS: Blood Urea Nitrogen 40 mg/dl (9-20); Calcium 8.7 mg/dl (8.4-10.2); Carbon Dioxide 25 mmol/L (22-30); Chloride 110 mmol/L (98-107); Estimated Creatinine Clearance 23 ml/min; Glucose 101 mg/dl (70-99); Potassium 4.7 mmol/L (3.5-5.1); Sodium 140 mmol/L (135-145); eGFR 28.32
--- NOTE | 2024-10-20 11:20 | W.PN.GI.CBS2 ---
Today's Communication / Plan
-
Patient not clear after goytle prep
More prep today and rescheduled EGD/colon to tomorrow 10/21
Hold heparin gtt at 5am
Assessment / Plan
-
69-year-old male with history of hypertension, high cholesterol, chronic kidney disease, recently left metatarsal osteomyelitis status post partial amputation and treated with antibiotics presenting with shortness of breath, acute and chronic
elevation in creatinine likely from antibiotic, noted to have macrocytic anemia and heme positive stool apart from 15 pound weight loss and history of positive Cologuard. During the hospital stay, noted to have new diagnosis of a flutter, currently
on IV heparin. Echo with normal LV function.
Impression
- Macrocytic Anemia with heme positive stool
- History of positive Cologuard couple of years ago
- Unintended wt loss
- HTN
- HL
- CKD
- h/o L osteomyelitis s/p amputation
Recommendations
- C/w more golytle and mag citrate
- Plan for EGD/colonoscopy tomorrow
- CLD NPO at [facility]
- To hold heparin gtt at 5am
- Will follow with you
- Eventually will need CT scan of the abdomen pelvis with at least oral contrast given underlying renal insufficiency to evaluate weight loss.
Will follow with you
Subjective
Subjective
Date of Service: October 20, 2024
Drank 3L of Golytle but stools still not clear. Denies nausea/vomiting. Reports limited ambulation as LLE in boot.
Objective
Data Reviewed
Laboratory Data:
Laboratory Results
10/20/24 09:56
10/20/24 09:56
Laboratory Results
PT 17.3 Sec (11.4-14.6) H 10/15/24 18:12
INR 1.36 10/15/24 18:12
APTT 63.2 Sec (23.4-35.0) H 10/20/24 06:10
Total Bilirubin 0.4 mg/dl (0.2-1.3) 10/19/24 04:37
AST 61 U/L (17-59) H 10/19/24 04:37
ALT 20 U/L (0-50) 10/19/24 04:37
Alkaline Phosphatase 114 U/L (38-126) 10/19/24 04:37
Vital Signs and I&O:
Vital Signs
Temp Pulse Resp BP Pulse Ox
97.6 F 71 16 117/49 99
10/20/24 07:15 10/20/24 08:14 10/20/24 07:15 10/20/24 08:14 10/20/24 07:15
I&O
10/19/24 10/20/24 10/21/24
06:59 06:59 06:59
Intake Total 2039 / 2039 3606 / 3606
Output Total 2775 / 2775 600 / 600
Balance -735 / -735 3606 / 3606 -600 / -600
Physical Exam
Physical Exam
GEN: No acute distress, conversant, pleasant
HEENT: anicteric, extraocular movements intact, clear oropharynx without exudates
GI: soft, non-distended, not tender to palpation, normal active bowel sounds, no hepatosplenomegaly
EXT: warm, well perfused, trace edema bilaterally LLE in boot
NEURO: AAOx3, non-focal
[2024-10-20 11:30] VITALS: BP 96/51
[2024-10-20] MEDS: DULCOLAX 10 MG PO (11:41)
--- NOTE | 2024-10-20 11:49 | CM ---
Patient for possible colonoscopy today, plan is for patient to return to home with [facility] infusion, all clinical faxed, [facility] to provide nursing.
Plan; Home with [facility] infusion when stable, odin is current with [facility].
--- NOTE | 2024-10-20 13:15 | W.PN.NEPH.PH ---
Today's Communication / Plan
-
AM labs
Assessment/Plan
-
IMP:
TRISTEN with CKD3b 1.7-2, lost f/u with Dr Webster in 2019
Acute hypoxic respiratory insufficiency-concern of PE
new onset atrial fibrillation/atrial flutter
Hypokalemia
ELevtaed trop; likely non ischemic myocardial injury
Non gap Metabolic acidosis
History of recent osteomyelitis
leukopenia
Anemia
Weightloss
Plan:
A/w sob, concern of PE, noted Atrial arrhythmia
TRISTEN-UA with 4+bld but microhematuria 3-6 rbc, ck-normal,
U PCR at 2.3gm/gm of cr, previous serologies neg in 2019([facility])
complements are low, MARY neg, negative ANCA, check for hep c
neg U eoisinophils but eosinophilia noted, possible AIN+prerenal with low Fena
monitor UOP, renal US and CT shows can not r/o obstructive uropathy on left, pvr 581cc too on US
bladder scan at bedside neg, started flomax 10/17, he will need to see eventually
avoid nephrotoxins, off cefepime
he is euvolemic , holding diuresis.
for GI eval for +ve heme occult now that he will on AC = patient not at prep properly for colonoscopy will do tomorrow
may consider kidney biopsy prior transitioning to po AC
-
-
Date of Service: October 20, 2024
CC / HPI / ROS
-
Chief Complaint:
TRISTEN with ckd
History of Present Illness:
cr down to 2.2, non oliguric
BP soft, on BB
leucopenia improving
Review of Systems:
no cp or sob
no abd pain
Labs
-
Labs:
WBC 5.3 10^3/uL (4.8-10.8) 10/20/24 09:56
RBC 2.71 10^6/uL (4.70-6.10) L 10/20/24 09:56
Hgb 9.4 g/dL (13.0-18.0) L 10/20/24 09:56
Hct 26.8 % (39.0-52.0) L 10/20/24 09:56
Plt Count 123 10^3/uL (130-400) L 10/20/24 09:56
Sodium 140 mmol/L (135-145) 10/20/24 09:56
Potassium 4.7 mmol/L (3.5-5.1) 10/20/24 09:56
Chloride 110 mmol/L (98-107) H 10/20/24 09:56
Carbon Dioxide 25 mmol/L (22-30) 10/20/24 09:56
BUN 40 mg/dl (9-20) H 10/20/24 09:56
Creatinine 2.4 mg/dL (0.7-1.3) H 10/20/24 09:56
eGFR 28.32 10/20/24 09:56
Glucose 101 mg/dl (70-99) H 10/20/24 09:56
Calcium 8.7 mg/dl (8.4-10.2) 10/20/24 09:56
Jsk-J-Habupyvrfzh Pept 1500 pg/ml 10/15/24 18:12
Albumin 3.1 g/dl (3.5-5.0) L 10/19/24 04:37
Physical Exam
-
Vital Signs:
Vital Signs
Temp Pulse Resp BP Pulse Ox
97.5 F 62 16 96/51 100
10/20/24 11:30 10/20/24 11:30 10/20/24 11:30 10/20/24 11:30 10/20/24 11:30
Cardiovascular:: Regular rate and rhythm
Respiratory:: Bilateral: CTA
Lung Excursion:: Normal
Abdomen:: Nontender and Soft
Extremity Edema:: None: Bilateral:
Garcia Catheter: No
[2024-10-20] MEDS: NULYTELY SOLUTION 2 LITERS PO (13:18)
[2024-10-20] MEDS: SILVADENE 1 APPLIC TOPICAL (13:45)
[2024-10-20 14:02] LABS: Hepatitis C Antibody Negative (Negative)
[2024-10-20] MEDS: HEPARIN 25000 UNITS/250 ML IV (14:45)
[2024-10-20 15:56] VITALS: BP 122/65
[2024-10-20 19:30] VITALS: BP 138/55
[2024-10-20 21:17] LABS: APTT 111.5 Sec (23.4-35.0)
[2024-10-20 23:30] VITALS: BP 101/42
[2024-10-21] VITALS (10 sets, daily range): BP systolic 16–132; BP diastolic 47–68; PULSE 75
[2024-10-21 05:41] LABS: APTT 151.7 Sec (23.4-35.0)
[2024-10-21 05:52] LABS: Blood Urea Nitrogen 33 mg/dl (9-20); Carbon Dioxide 22 mmol/L (22-30); Chloride 112 mmol/L (98-107); Estimated Creatinine Clearance 23 ml/min; Glucose 89 mg/dl (70-99); Potassium 4.6 mmol/L (3.5-5.1); Sodium 141 mmol/L (135-145); eGFR 28.32
[2024-10-21] MEDS: ANCEF 10 IV ×2 (08:31→20:29)
[2024-10-21] MEDS: NSS (PRESERVATIVE FREE) 10 ML IV (08:45)
[2024-10-21] MEDS: PROTONIX IV 40 MG IV (08:45)
--- NOTE | 2024-10-21 09:03 | W.PN.ID1 ---
Date of Service
Date of Service: October 21, 2024
Today's Communication
Continue cefazolin.
Assessment / Plan
# Osteomyelitis of left 4th toe, metatarsal head and medial 5th met head
# TRISTEN on CKD; suspect prerenal, AIN less likely without eosinophilia or eosinophiluria
# Neutropenia/thrombocytopenia - suspect due to prolonged cefepime; resolved off cefepime
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
- OR bone cx: MSSA, MSSE; path 4th digit margin: negative for osteomyelitis; no comments on the 5th met
- Superficial Wound swab Pseudomonas, Staph aureus (MSSA), Group B strep
- Per Dr. Yun, he is concerned about the 5th met head with residual osteo.
- c/w cefazolin 2 gm IV q12 through 10/28/2024, script given to case resource manager 10/19
- PICC in place
# TRISTEN on CKD, stable
- bladder scans without significant PVR
-
# Cachexia - BMI 17.8 last month now 15.8
- For colonoscopy today.
Chief Complaint
-: Other (osteomyelitis, adverse drug reaction)
Subjective / Review of Systems
No complaints today.
Vital Signs / Physical Exam
Vital Signs
Vital Signs
Temp Pulse Resp BP Pulse Ox
98.3 F 72 16 132/62 99
10/21/24 08:23 10/21/24 08:23 10/21/24 08:23 10/21/24 08:23 10/21/24 08:23
Physical Exam
Constitutional: No Acute Distress and Cachetic
Cardiovascular: Regular Rate and S1/S2; Negative Murmur or Rub
Pulmonary: Clear and Symmetric; Negative Wheezes or Rales
Gastrointestinal: Soft, Non Tender, Non Distended and Normal Bowel Sounds
Extremities: Negative Edema
Neurological: AO x 3
Lines: PICC (no erythema, warmth, tenderness or drainage)
Objective Data
Lab Data
Lab Results
10/20/24 09:56
10/21/24 04:47
ESR 78 mm/hour (0-20) H 10/17/24 06:04
PT 17.3 Sec (11.4-14.6) H 10/15/24 18:12
INR 1.36 10/15/24 18:12
APTT 151.7 Sec (23.4-35.0) H* 10/21/24 04:47
Estimated Creat Clear 23 ml/min 10/21/24 04:47
Total Bilirubin 0.4 mg/dl (0.2-1.3) 10/19/24 04:37
AST 61 U/L (17-59) H 10/19/24 04:37
ALT 20 U/L (0-50) 10/19/24 04:37
Alkaline Phosphatase 114 U/L (38-126) 10/19/24 04:37
C-Reactive Protein 48.80 mg/L (0.0-10.00) H 10/17/24 06:04
Most recent labs reviewed.
Micro Results:
10/16/24 02:58 MRSA Screen - Final
Nose No Methicillin Resistant Staphylococcus aureus isolated.
--- NOTE | 2024-10-21 09:39 | W.PN.HOSP.TC ---
Today's Communication/Plan
-
DC in AM ( )
Assessment / Plan
Assessment / Plan
Physical exam:
General: Other (69y M in no acute distress.)
HEENT: Moist mucous membranes
Respiratory: Clear; No Wheezes, Rales or Rhonchi
Cardiac: S1/S2 and Irregular Rhythm; No Murmur
GI: Soft, Non Tender, Non Distended and Normal Bowel Sounds
Rectal: positive occult blood in stool
Musculoskeletal: no edema
Neuro: AO x 3 and Nonfocal/grossly intact
Psych: Calm
Acute hypoxic respiratory insufficiency,, resolved. On Room air now.
likely 2/2 new onset atrial fibrillation/atrial flutter
Echo with preserved EF
Cardiology following
Continue with IV heparin at this time; eventual transition to Eliquis
VQ scan with low prob of PE; venous doppler neg
Wean oxygen as tolerated
Pulmonary will follow-up patient
# Recent Weight loss and loss of appetite. Patient feels it was related to the foot infection and antibiotic
Seems the plan to wait for the pt to have BM to do heme test. Did rectal exam 10/19 and was positive. Pt said he had positive Cologuard test 3 years ago but did not follow and no GI issues. He has been taking oral iron from OTC based on his 's
recommendations. Per pt, his PCP always said his labs were within average and denied known history of anemia although it was noted in 2019 per external records in the system.
I d/w GI doctor, pt had upper and lower endoscopy, after 2 days of doing bowel prep. Both showed mild gastritis/ diverticulosis. Ok to resume diet and AC.
Atrial flutter/fibrillation -new onset atrial fibrillation, no symptoms of palpitations chest pain but did complain of episodes of dizziness and lightheadedness. Currently rate controlled off any medications
- Monitor on telemetry
- DC'd amlodipine, low dose metoprolol.
- s/p heparin gtt, d/w pt, started on Eliquis. Monitor HGB and rectal output while on Eliquis. Pt was counseled about potential risks of systemic AC ( Eliquis) including risk of GI bleeding,he verbalized understanding.
TSH wnl
- Cardiology following
Hypokalemia
Replaced.
Elevated trop; likely non ischemic myocardial injury
TRISTEN seems c/w acute interstitial nephritis
Has CKD IIIb 1.7
Urine eos negative but positive in blood
Metabolic acidosis improving
Renal ultrasound with obstructive uropathy, patient refusing Garcia. Started Flomax
Bladder scan does not appear to have high PVR, monitor
Appreciate nephrology help
History of recent osteomyelitis
Discontinue further cefepime
ID following, now started on Ancef
leukopenia - resolved.
Thrombocytopenia, possible related to cefepime
Monitor
Anemia; suspect anemia of chronic disease
#CT showed Mild to moderate left renal collecting system dilatation. Following the course of the left ureter markedly limited, cannot exclude obstructive uropathy.
Patient refused Garcia catheter, started Flomax. No retention in hospital. for OP urology follow up.
DVT PPX - on heparin
Code status - Full code
Total time spent to see the patient, examine the patient, review data and lab results, discuss treatment plan with patient, consultants and nursing staff around 55 minutes
Anticipated Discharge: Within 24 hours
Subjective/Interval History
-
Date of Service: October 21, 2024
No rectal bleeding
Objective Data
-
Labs:
Laboratory Results
10/21/24
04:47
APTT 151.7 H*
Sodium 141
Potassium 4.6
Chloride 112 H
Carbon Dioxide 22
BUN 33 H
Creatinine 2.4 H
Glucose 89
Calcium 9.0
Vital Signs:
Vital Signs
Temp Pulse Resp BP Pulse Ox
98.3 F 72 16 132/62 99
10/21/24 08:23 10/21/24 08:23 10/21/24 08:23 10/21/24 08:23 10/21/24 08:23
I&O
10/20/24 10/21/24 10/22/24
06:59 06:59 06:59
Intake Total 3606 / 3606 2700 / 2700
Output Total 600 / 600
Balance 3606 / 3606 2099 / 2099
--- NOTE | 2024-10-21 11:53 | W.PN.NEPH.PH ---
Today's Communication / Plan
-
follow labs
Assessment/Plan
-
IMP:
TRISTEN with CKD3b 1.7-2, lost f/u with Dr Webster in 2019
Acute hypoxic respiratory insufficiency-concern of PE
new onset atrial fibrillation/atrial flutter
Hypokalemia
ELevtaed trop; likely non ischemic myocardial injury
Non gap Metabolic acidosis
History of recent osteomyelitis
leukopenia
Anemia
Weightloss
Plan:
A/w sob,unlikely PE, noted Atrial arrhythmia
TRISTEN-UA with 4+bld but microhematuria 3-6 rbc, ck-normal,
U PCR at 2.3gm/gm of cr, previous serologies neg in 2019([facility])
complements are low, MARY neg, negative ANCA, neg hep c
neg U eoisinophils but eosinophilia noted, possible AIN+prerenal with low Fena
monitor UOP, renal US and CT shows can not r/o obstructive uropathy on left, pvr 581cc too on US
bladder scan at bedside neg, started flomax 10/17, he will need to see eventually
avoid nephrotoxins, off cefepime
he is euvolemic , holding diuresis.
for GI eval for +ve heme occult now that he will on AC for colonoscopy today
no k biopsy at this time-will have to review out pt unless cr worsens
-
-
Date of Service: October 21, 2024
CC / HPI / ROS
-
Chief Complaint:
TRISTEN with ckd
History of Present Illness:
cr stable at 2.4, subjectively non oliguric
BP soft, on BB
leucopenia improving
Review of Systems:
no cp or sob
no abd pain
Labs
-
Labs:
WBC 5.3 10^3/uL (4.8-10.8) 10/20/24 09:56
RBC 2.71 10^6/uL (4.70-6.10) L 10/20/24 09:56
Hgb 9.4 g/dL (13.0-18.0) L 10/20/24 09:56
Hct 26.8 % (39.0-52.0) L 10/20/24 09:56
Plt Count 123 10^3/uL (130-400) L 10/20/24 09:56
Sodium 141 mmol/L (135-145) 10/21/24 04:47
Potassium 4.6 mmol/L (3.5-5.1) 10/21/24 04:47
Chloride 112 mmol/L (98-107) H 10/21/24 04:47
Carbon Dioxide 22 mmol/L (22-30) 10/21/24 04:47
BUN 33 mg/dl (9-20) H 10/21/24 04:47
Creatinine 2.4 mg/dL (0.7-1.3) H 10/21/24 04:47
eGFR 28.32 10/21/24 04:47
Glucose 89 mg/dl (70-99) 10/21/24 04:47
Calcium 9.0 mg/dl (8.4-10.2) 10/21/24 04:47
Qct-M-Rpioddoiehd Pept 1500 pg/ml 10/15/24 18:12
Albumin 3.1 g/dl (3.5-5.0) L 10/19/24 04:37
Physical Exam
-
Vital Signs:
Vital Signs
Temp Pulse Resp BP Pulse Ox
97.2 F 72 16 108/68 100
10/21/24 10:27 10/21/24 10:57 10/21/24 10:57 10/21/24 10:57 10/21/24 10:57
Cardiovascular:: Regular rate and rhythm
Respiratory:: Bilateral: CTA
Lung Excursion:: Normal
Abdomen:: Nontender and Soft
Extremity Edema:: None: Bilateral:
Garcia Catheter: No
[2024-10-21] MEDS: CRESTOR 5 MG PO (12:46)
[2024-10-21] MEDS: FLOMAX 0.4 MG PO (12:46)
[2024-10-21] MEDS: LOPRESSOR 12.5 MG PO ×2 (12:46→20:28)
[2024-10-21] MEDS: COLACE PO (12:47)
[2024-10-21] MEDS: ELIQUIS 2.5 MG PO ×2 (12:48→20:29)
--- NOTE | 2024-10-21 16:13 | DOWNTIME ---
There was a [employer] Emergency Room Physician Downtime on 10/21/2024 from 1230 to 10/21/2024 at 1550. Downtime documentation of patient's care, including medication administrations, has been reconciled in the electronic record per guidelines. Refer to the
patient's paper chart under the miscellaneous tab to see printed paper medication records and downtime forms.
--- NOTE | 2024-10-21 16:56 | W.PN.UPDATE ---
Update Note
Progress Note Update
results of EGD/colonoscopy today reviewed. ok per GI to resume OAC - started back on eliquis 2.5mg BID (appropriate dosing given weight and Cr). continue rate control of aflutter at this time. on lopressor 12.5mg BID. post EGD/colon with some
bradycardia - will follow on tele. hold parameters on lopressor. can consider OP CV if tolerating OAC without bleeding recurrence. will arrange OP cardiac follow up.
[2024-10-22 03:14] VITALS: BP 139/51
[2024-10-22 05:07] LABS: Hematocrit 25.4 % (39.0-52.0); Hemoglobin 8.5 g/dL (13.0-18.0); Mean Corp Hgb Conc. 33.5 g/dL (33.0-37.0); Mean Corpuscular Hgb 34.3 pg (27.0-31.0); Mean Corpuscular Volume 102.4 fL (80.0-94.0); Mean Platelet Volume 11.5 fL (7.4-10.4); Platelet Count 102 10^3/uL (130-400); Red Blood Cell Count 2.48 10^6/uL (4.70-6.10); Red Cell Dist. Width 11.9 % (11.5-14.5); White Blood Cell Count 5.7 10^3/uL (4.8-10.8)
[2024-10-22 05:23] LABS: Blood Urea Nitrogen 29 mg/dl (9-20); Calcium 8.8 mg/dl (8.4-10.2); Carbon Dioxide 23 mmol/L (22-30); Chloride 113 mmol/L (98-107); Estimated Creatinine Clearance 23 ml/min; Glucose 88 mg/dl (70-99); Potassium 4.5 mmol/L (3.5-5.1); Sodium 141 mmol/L (135-145); eGFR 28.32
[2024-10-22 07:00] VITALS: BP 112/54
[2024-10-22] MEDS: ANCEF 10 IV (09:11)
[2024-10-22] MEDS: FLOMAX 0.4 MG PO (09:12)
[2024-10-22] MEDS: ELIQUIS 2.5 MG PO (09:12)
[2024-10-22] MEDS: LOPRESSOR 12.5 MG PO (09:14)
[2024-10-22] MEDS: CRESTOR 5 MG PO (09:14)
--- NOTE | 2024-10-22 09:21 | W.PN.HOSP.TC ---
Today's Communication/Plan
-
dc
Assessment / Plan
Assessment / Plan
Physical exam:
General: Other (69y M in no acute distress.)
HEENT: Moist mucous membranes
Respiratory: Clear; No Wheezes, Rales or Rhonchi
Cardiac: S1/S2 and Irregular Rhythm; No Murmur
GI: Soft, Non Tender, Non Distended and Normal Bowel Sounds
Rectal: positive occult blood in stool
Musculoskeletal: no edema
Neuro: AO x 3 and Nonfocal/grossly intact
Psych: Calm
Acute hypoxic respiratory insufficiency,, resolved. On Room air now.
likely 2/2 new onset atrial fibrillation/atrial flutter
Echo with preserved EF
Cardiology following
Continue with IV heparin at this time; eventual transition to Eliquis
VQ scan with low prob of PE; venous doppler neg
Wean oxygen as tolerated
Pulmonary will follow-up patient
# Recent Weight loss and loss of appetite. Patient feels it was related to the foot infection and antibiotic
Seems the plan to wait for the pt to have BM to do heme test. Did rectal exam 10/19 and was positive. Pt said he had positive Cologuard test 3 years ago but did not follow and no GI issues. He has been taking oral iron from OTC based on his 's
recommendations. Per pt, his PCP always said his labs were within average and denied known history of anemia although it was noted in 2019 per external records in the system.
I d/w GI doctor, pt had upper and lower endoscopy, after 2 days of doing bowel prep. Both showed mild gastritis/ diverticulosis. Ok to resume diet and AC.
Atrial flutter/fibrillation -new onset atrial fibrillation, no symptoms of palpitations chest pain but did complain of episodes of dizziness and lightheadedness. Currently rate controlled off any medications
- Monitor on telemetry
- DC'd amlodipine, low dose metoprolol. Patient was noted to be bradycardic while asleep but heart rate uncontrolled about activity including going to the bathroom. Discussed with cardiology, continue metoprolol and monitor in outpatient setting
- s/p heparin gtt, d/w pt, started on Eliquis. Monitor HGB and rectal output while on Eliquis. Pt was counseled about potential risks of systemic AC ( Eliquis) including risk of GI bleeding,he verbalized understanding.
TSH wnl
- Cardiology followed.
Hypokalemia
Replaced.
Elevated trop; likely non ischemic myocardial injury
TRISTEN seems c/w acute interstitial nephritis
Has CKD IIIb 1.7
Urine eos negative but positive in blood
Metabolic acidosis improving
Renal ultrasound with obstructive uropathy, patient refusing Garcia. Started Flomax
Bladder scan does not appear to have high PVR, monitor
Appreciate nephrology help
History of recent osteomyelitis
Discontinue further cefepime
ID following, now started on Ancef
leukopenia - resolved.
Thrombocytopenia, possible related to cefepime
Monitor
Anemia; suspect anemia of chronic disease
#CT showed Mild to moderate left renal collecting system dilatation. Following the course of the left ureter markedly limited, cannot exclude obstructive uropathy.
Patient refused Garcia catheter, started Flomax. No retention in hospital. for OP urology follow up.
DVT PPX - on heparin
Code status - Full code
Total discharge time spent to see the patient, examine the patient, review data and lab results, discuss tdischarge plan with patient, consultants and nursing staff around 67 minutes
Anticipated Discharge: Today
Subjective/Interval History
-
Date of Service: October 22, 2024
No complaints
No rectal bleeding
No abdominal pain or nausea
No chest pain, no sob
Objective Data
-
Labs:
Laboratory Results
10/22/24
04:32
WBC 5.7
Hgb 8.5 L
Hct 25.4 L
Plt Count 102 L
Sodium 141
Potassium 4.5
Chloride 113 H
Carbon Dioxide 23
BUN 29 H
Creatinine 2.4 H
Glucose 88
Calcium 8.8
Vital Signs:
Vital Signs
Temp Pulse Resp BP Pulse Ox
97.7 F 66 14 139/51 100
10/22/24 03:14 10/22/24 03:14 10/22/24 03:14 10/22/24 03:14 10/22/24 03:14
I&O
10/21/24 10/22/24 10/23/24
06:59 06:59 06:59
Intake Total 2700 / 2700 480 / 480
Output Total 600 / 600
Balance 2099 / 2099 480 / 480
--- NOTE | 2024-10-22 09:51 | CM ---
Chart reviewed and patient is for discharge to home with [facility] today, infusion script and clinicals faxed over to [facility] several days ago, casey saw operator spoke with [facility] this morning and they are all set to manage home IV ABX. Nurse
from [facility] will follow patient in home.
Plan: Home today with spouse.
--- NOTE | 2024-10-22 10:06 | W.PN.ID1 ---
Date of Service
Date of Service: October 22, 2024
Today's Communication
Completing cefazolin 2 gm IV q12 through 10/28/2024
No need to follow-up with ID.
Assessment / Plan
# Osteomyelitis of left 4th toe, metatarsal head and medial 5th met head
# TRISTEN on CKD; suspect prerenal, AIN less likely without eosinophilia or eosinophiluria
# Neutropenia/thrombocytopenia - suspect due to prolonged cefepime; resolved off cefepime
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
- OR bone cx: MSSA, MSSE; path 4th digit margin: negative for osteomyelitis; no comments on the 5th met
- Superficial Wound swab Pseudomonas, Staph aureus (MSSA), Group B strep
- Per Dr. Yun, he is concerned about the 5th met head with residual osteo.
- c/w cefazolin 2 gm IV q12 through 10/28/2024
- PICC in place
# TRISTEN on CKD, stable
- bladder scans without significant PVR
-
# Cachexia - BMI 17.8 last month now 15.8
- colonoscopy: poor prep, + small polyps
Chief Complaint
-: Other (osteomyelitis, adverse drug reaction)
Subjective / Review of Systems
No complaints. Feels well.
Vital Signs / Physical Exam
Vital Signs
Vital Signs
Temp Pulse Resp BP Pulse Ox
97.7 F 66 14 139/51 100
10/22/24 03:14 10/22/24 03:14 10/22/24 03:14 10/22/24 03:14 10/22/24 03:14
Physical Exam
Constitutional: No Acute Distress and Cachetic
Cardiovascular: Regular Rate and S1/S2
Pulmonary: Clear
Gastrointestinal: Soft, Non Tender, Non Distended and Normal Bowel Sounds
Extremities: Negative Edema
Wound: Other (left foot amp site dry, no erythema, no induration)
Neurological: AO x 3
Lines: PICC (no erythema, warmth, tenderness or drainage)
Objective Data
Lab Data
Lab Results
10/22/24 04:32
10/22/24 04:32
ESR 78 mm/hour (0-20) H 10/17/24 06:04
PT 17.3 Sec (11.4-14.6) H 10/15/24 18:12
INR 1.36 10/15/24 18:12
APTT 151.7 Sec (23.4-35.0) H* 10/21/24 04:47
Estimated Creat Clear 23 ml/min 10/22/24 04:32
Total Bilirubin 0.4 mg/dl (0.2-1.3) 10/19/24 04:37
AST 61 U/L (17-59) H 10/19/24 04:37
ALT 20 U/L (0-50) 10/19/24 04:37
Alkaline Phosphatase 114 U/L (38-126) 10/19/24 04:37
C-Reactive Protein 48.80 mg/L (0.0-10.00) H 10/17/24 06:04
Most recent labs reviewed.
Micro Results:
10/16/24 02:58 MRSA Screen - Final
Nose No Methicillin Resistant Staphylococcus aureus isolated.
[2024-10-22 11:00] VITALS: BP 100/54
[2024-10-22] MEDS: SILVADENE 1 APPLIC TOPICAL (12:02)
--- NOTE | 2024-10-22 13:26 | W.DCSUMMARY ---
Discharge Summary
Discharge Data
Date of Admission: 10/15/24
Date of Discharge: 10/22/24
-
Pending Results: No
Hospital Course
69 years old male presented to the hospital with hypoxia and shortness of breath. Patient was found to have atrial flutter, Acute kidney injury. Patient reported that he had lost weight with poor patient denied abdominal pain
appetite./Nausea/vomiting. Imaging studies of the chest were unremarkable. His hypoxemia resolved. He was followed by pulmonary doctor. He had a negative lower extremity duplex and VQ scan. Patient was advised to follow-up in outpatient setting
echocardiogram showed left ventricular ejection fraction 55 to 60% with normal regional wall motion. Patient was evaluated by car body inspector. Amlodipine was discontinued and he was started on low-dose metoprolol after he was noted to have exertional
tachycardia. Patient was followed by power system operator for acute kidney injury. Cefepime was discontinued. Patient was diagnosed with acute kidney injury on underlying chronic kidney disease stage IIIb. Patient was not following with power system operator and
his last follow-up was in 2019. Complements were low, negative MARY, negative and ANCA. Negative urinary eosinophils but eosinophilia in the blood. Patient was diagnosed with possibility of acute interstitial nephritis with component of pre-renal
and low Fena. Diuretics were held. His creatinine stabilized around 2.4. Patient was noted to have low BMI. He was evaluated by gastroenterology. Patient reported a positive heme test in the past but did not follow-up. He had upper and lower
endoscopic evaluation that did not reveal acute hemorrhagic source but was found to have mild gastritis with diverticulosis. He was initially started on intravenous heparin for stroke prevention while new onset atrial fibrillation but later changed
to Eliquis. Drill Press Tender was agreeable to use of systemic anticoagulation and recommended outpatient follow-up and to repeat colonoscopy in 6 months. Patient was counseled regarding potential side effects of systemic anticoagulation and he
verbalized understanding. patient was followed by ID doctor and was started on cephalexin. Case management was consulted for outpatient antibiotic infusion to finish the course through October 28. Patient remained hemodynamically stable was discharged
home in stable condition.
Discharge Plan
-
Patient Disposition: Home with Home Care
Discharge Diagnosis/Procedures: - TRISTEN with CKD3b , will need to continue with OP follow up.
- Acute hypoxic respiratory insufficiency-concern of PE
- New onset atrial fibrillation/atrial flutter, you were started on new medicine for anticoagulation called Eliquis. Eliquis is systemic anticoagulant. Potential side effects include bleeding tendencies/spontaneous hemorrhage. Monitor your
stools. Avoid falls especially head trauma. If you fall and hit your head, you will need to to be evaluated in the emergency room.
-Hypokalemia, treated.
-Acute hypoxic respiratory failure, CT chest essentially unremarkable. Echocardiogram without any pulmonary hypertension, will need outpatient pulmonary follow-up.
-Renal ultrasound showed mild to moderate left renal collecting system dilatation, distended urinary bladder. You are started on Flomax
-ELevtaed trop; likely non ischemic myocardial injury, f/w cardiology.
-History of recent osteomyelitis, c/w iV Antibiotic. Continue with cefazolin through 10/28/24.
-Anemia, Weight loss status post GI evaluation and upper with lower endoscopic examination, mild gastritis with diverticulosis. Will need to finish further work up with repeat colonoscopy in 6-12 months for polypectomy and for poor prep (despite 2
day prep).
- You will need to follow-up with your primary care doctor to repeat blood work including basic metabolic panel and blood counts.
Diet: As tolerated
Blood Work: bMP & CBC in 1 week with PCP
Activity Restrictions/Additional Instructions:
Wound Care Instructions
L foot surgical site: clean with soap and water, Silvadene to suture line site, folded gauze, abd pad and kaylin/spandage change q 2 days and prn soilage. Darco half shoe when ambulating.
L ear: clean with soap and water, cut piece of alginate, Exuderm thin or small silicone foam, change q 2 days and prn drainage
L mid back: silicone foam change q 2-3 days and prn soilage
Sacrum: clean with soap and water, Calazime (barrier cream) prn soilage
Follow up with Dr. Burian as scheduled
Follow up with a outreach manager for L ear ulcer
Referrals:
Yani Tinajero PA-C [Specified Professional Personl, Cardiology] - 11/11/24 8:00 am
Referral Note: You have a cardiology follow up appointment at the [place] office. Please call with questions.
Dwight Huizar DO [Family Provider, Family Practice] - in one to two weeks
Beatrice Mcmullen MD [Active, Gastroenterology]
Referral Note: 4-6 wks for wt loss and polyps with anemia
Gabrielle Rivera DO [Active, Pulmonary Medicine] - in four to six weeks
Referral Note: Patient needs full PFTs and 6 min walk test.
Prescriptions:
New
cefazolin 10 gram Recon Soln
2 g IV Q12H Qty: 1 0RF
tamsulosin 0.4 mg Capsule
0.4 mg PO DAILY Qty: 30 0RF
metoprolol tartrate 25 mg Tablet
12.5 mg PO BID Qty: 60 0RF
Eliquis 2.5 mg Tablet
2.5 mg PO BID Qty: 60 0RF
Continued
rosuvastatin 5 mg Tablet
5 mg PO DAILY
Discontinued
cefepime 2 gram recon soln
2,000 mg IV DAILY
Discharge Orders:
Discharge Patient (As Directed); Ordered 10/22/24
Ordered By: Prisca Ernandez
Discharge Date and Time
Discharge Date/Time: 10/22/24 12:33
Print Language: CYMRO
--- NOTE | 2024-10-22 13:43 | W.PN.NEPH.PH ---
Today's Communication / Plan
-
f/u nephro with BMP next week
Assessment/Plan
-
IMP:
TRISTEN with CKD3b 1.7-2, lost f/u with Dr Webster in 2019
Acute hypoxic respiratory insufficiency-concern of PE
new onset atrial fibrillation/atrial flutter
Hypokalemia
ELevtaed trop; likely non ischemic myocardial injury
Non gap Metabolic acidosis
History of recent osteomyelitis
leukopenia
Anemia
Weightloss
Plan:
A/w sob,unlikely PE, noted Atrial arrhythmia
TRISTEN-UA with 4+bld but microhematuria 3-6 rbc, ck-normal,
U PCR at 2.3gm/gm of cr, previous serologies neg in 2019([facility])
complements are low, MARY neg, negative ANCA, neg hep c
neg U eoisinophils but eosinophilia noted, possible AIN+prerenal with low Fena
monitor UOP, renal US and CT shows can not r/o obstructive uropathy on left, pvr 581cc too on US
bladder scan at bedside neg, started flomax 10/17, he will need to see eventually
avoid nephrotoxins, off cefepime
he is euvolemic , holding diuresis.
no k biopsy at this time-will have to review out pt
d/w pt in detail
f/u nephro
-
-
Date of Service: October 22, 2024
CC / HPI / ROS
-
Chief Complaint:
TRISTEN with ckd
History of Present Illness:
cr stable at 2.4, subjectively non oliguric
BP soft, on BB
leucopenia improving
hb stable at 8.5
Review of Systems:
no cp or sob
no abd pain
Labs
-
Labs:
WBC 5.7 10^3/uL (4.8-10.8) 10/22/24 04:32
RBC 2.48 10^6/uL (4.70-6.10) L 10/22/24 04:32
Hgb 8.5 g/dL (13.0-18.0) L 10/22/24 04:32
Hct 25.4 % (39.0-52.0) L 10/22/24 04:32
Plt Count 102 10^3/uL (130-400) L 10/22/24 04:32
Sodium 141 mmol/L (135-145) 10/22/24 04:32
Potassium 4.5 mmol/L (3.5-5.1) 10/22/24 04:32
Chloride 113 mmol/L (98-107) H 10/22/24 04:32
Carbon Dioxide 23 mmol/L (22-30) 10/22/24 04:32
BUN 29 mg/dl (9-20) H 10/22/24 04:32
Creatinine 2.4 mg/dL (0.7-1.3) H 10/22/24 04:32
eGFR 28.32 10/22/24 04:32
Glucose 88 mg/dl (70-99) 10/22/24 04:32
Calcium 8.8 mg/dl (8.4-10.2) 10/22/24 04:32
Lzl-K-Tgsedwbesma Pept 1500 pg/ml 10/15/24 18:12
Albumin 3.1 g/dl (3.5-5.0) L 10/19/24 04:37
Physical Exam
-
Vital Signs:
Vital Signs
Temp Pulse Resp BP Pulse Ox
97.6 F 73 20 100/54 100
10/22/24 11:00 10/22/24 11:00 10/22/24 11:00 10/22/24 11:00 10/22/24 11:00
Cardiovascular:: Regular rate and rhythm
Respiratory:: Bilateral: CTA
Lung Excursion:: Normal
Abdomen:: Nontender and Soft
Extremity Edema:: None: Bilateral:
Garcia Catheter: No
== END 2024-10-22 12:33 | disposition home or self-care (01) | DRG 308 ==
LOC: 4 WEST ACU 22:12
PROVIDERS: Internal Medicine; Internal Medicine Gastroenterology; Nurse Practitioner Family; ADMITTING PHYSICIAN Internal Medicine; ATTENDING PHYSICIAN Internal Medicine; CONSULT PHYSICIAN Internal Medicine; CONSULT PHYSICIAN Internal Medicine Cardiovascular Disease; CONSULT PHYSICIAN Internal Medicine Gastroenterology; CONSULT PHYSICIAN Student in an Organized Health Care Education/Training Program; EMERGENCY PHYSICIAN Emergency Medicine; FAMILY PHYSICIAN Family Medicine; OTHER PHYSICIAN Internal Medicine
PROC: 0DJD8ZZ Inspection of Lower Intestinal Tract, Via Natural or Artificial Opening Endoscopic (ICD-10-PCS; 2024-10-21)
PROC: 0DB78ZX Excision of Stomach, Pylorus, Via Natural or Artificial Opening Endoscopic, Diagnostic (ICD-10-PCS; 2024-10-21)
PROC: 0DB98ZX Excision of Duodenum, Via Natural or Artificial Opening Endoscopic, Diagnostic (ICD-10-PCS; 2024-10-21)
DX: I48.91 Unspecified atrial fibrillation (principal); E43 Unspecified severe protein-calorie malnutrition; N17.9 Acute kidney failure, unspecified; Z68.1 Body mass index [BMI] 19.9 or less, adult; I5A Non-ischemic myocardial injury (non-traumatic); E87.20 Acidosis, unspecified; I48.3 Typical atrial flutter; N18.32 Chronic kidney disease, stage 3b; I12.9 Hypertensive chronic kidney disease with stage 1 through stage 4 chronic kidney disease, or unspecified chronic kidney disease; R09.02 Hypoxemia; E87.6 Hypokalemia; D63.1 Anemia in chronic kidney disease; D70.9 Neutropenia, unspecified; D12.0 Benign neoplasm of cecum; K57.30 Diverticulosis of large intestine without perforation or abscess without bleeding; D12.2 Benign neoplasm of ascending colon; E78.00 Pure hypercholesterolemia, unspecified; Z80.8 Family history of malignant neoplasm of other organs or systems; K29.70 Gastritis, unspecified, without bleeding; K44.9 Diaphragmatic hernia without obstruction or gangrene; Q67.6 Pectus excavatum; Z79.899 Other long term (current) drug therapy; Z89.429 Acquired absence of other toe(s), unspecified side
CPT/HCPCS: 88305; 71046; 71250; 74176; 76770; 78582; 80048; 80053; 81003; 81015; 81099; 82550; 82570; 82607; 82746; 82805; 83516; 83540; 83550; 83880; 84156; 84300; 84443; 84484; 85025; 85027; 85045; 85379; 85610; 85652; 85730; 86038; 86140; 86160; 86803; 86850; 86900; 86901; 87070; 88342; 93005; 93306; 93970; 94760; 94762; 96365; 96366; 97116; 97162; 99285; A9540; A9567; J7030

== ENCOUNTER → 2025-05-07 07:40 | Outpatient (REF) | payer OTHER, SELFPAY | LOC: HWRAD 07:40 | PROVIDERS: ATTENDING PHYSICIAN Internal Medicine; FAMILY PHYSICIAN Family Medicine | DX: N17.9 Acute kidney failure, unspecified (principal) | CPT/HCPCS: 76770 ==